=== PATIENT | male | born 1930 | race African-American/Black ===

== ENCOUNTER 2016-12-02 10:49 | Inpatient (IN) | payer OTHER, BC ==
[2016-12-02 11:42] LABS: BASOPHIL 0.9 % (0-2.0); EOSINOPHIL 1.2 % (0-4.5); MCH 26.6 pg (25.7-33.7); MCHC 31.8 g/dl (32.0-35.9); MEAN CELL VOLUME 83.5 fl (80-96); NEUTROPHILS 74.8 % (42.8-82.8); PLATELET COUNT 167 K/MM3 (134-434); RDW 15.8 % (11.9-15.9); WHITE BLOOD COUNT 8.7 K/mm3 (4.0-10.0)
[2016-12-02 11:59] LABS: INR 1.09 (0.82-1.09)
--- NOTE | 2016-12-02 12:04 | PDOC ---
History of Present Illness - General History Source: Patient, Family Exam Limitations: No Limitations <Mihai Esparza - Last Filed: 12/02/16 16:37> - General History Source: Patient, Care Provider Exam Limitations: No Limitations - History of Present Illness Initial Comments: 12/02/16 12:36 The patient is a 86 year old male BIBA with a significant past medical history of HTN, HLD, Hypothyroidism, BPH, Stomach ulcers who presents to the emergency department with rectal bleeding today morning. Patient is accompanied by daughter and grandson who reports the patient noted dark red blood after his bowel movement. As per family, patients bed was filled with dark red blood, with many clots. Patient has been noted to be increasingly weak in the past few weeks however denies any lightheadedness, dizziness or headache today. Patient is not on blood thinners. He denies fever, chills, abdominal pain, nausea, vomit , diarrhea or constipation. He denies chest pain, SOB, dysuria, frequency, urgency or hematuria. Allergies: NKA Past surgical history: Unspecified stomach ulcer surgery Social history: Former smoker 1984. Lives at home. PCP: Dr. Praveen Manzanares <Barbara Botello - Last Filed: 12/02/16 16:52> - General Chief Complaint: Rectal Bleed Stated Complaint: RECTAL BLEEDING Time Seen by Provider: 12/02/16 11:28 Past History - Past Medical History Anemia: No Asthma: No Cancer: No Cardiac Disorders: No CVA: No COPD: No CHF: No Dementia: No Diabetes: No GI Disorders: Yes (STOMACH ULCER) Disorders: Yes (BPH) HTN: Yes Hypercholesterolemia: Yes Liver Disease: No Seizures: No Thyroid Disease: Yes (HYPO.) - Surgical History Abdominal Surgery: Yes (SURGERY FOR STOMACH ULCER) Appendectomy: No Cardiac Surgery: No Cholecystectomy: No Lung Surgery: No Neurologic Surgery: No Orthopedic Surgery: Yes (RIGHT KNEE SURGERY) - Psycho/Social/Smoking Cessation Hx Anxiety: No Suicidal Ideation: No Smoking History: Former smoker Have you smoked in the past 12 months: Yes If you are a former smoker, when did you quit?: 1984 Information on smoking cessation initiated: No Hx Alcohol Use: No Drug/Substance Use Hx: No Substance Use Type: None Hx Substance Use Treatment: No <Mihai Esparza - Last Filed: 12/02/16 16:37> <Barbara Botello - Last Filed: 12/02/16 16:52> - Past Medical History Allergies/Adverse Reactions: Allergies Allergy/AdvReac Type Severity Reaction Status Date / Time No Known Drug Allergies Allergy Verified 12/02/16 11:03 Home Medications: Ambulatory Orders Levothyroxine [Synthroid -] 100 mcg PO DAILY 12/02/16 Tamsulosin HCl [Flomax] 0.4 mg PO DAILY 12/02/16 Valsartan/Hydrochlorothiazide [Valsartan-Hctz 80-12.5 mg Tab] 1 each PO DAILY Review of Systems - Review of Systems Able to Perform ROS?: Yes Comments:: 12/02/16 12:36 GENERAL/CONSTITUTIONAL: No fever or chills. No weakness. HEAD, EYES, EARS, NOSE AND THROAT: No change in vision. No ear pain or discharge. No sore throat. CARDIOVASCULAR: No chest pain or shortness of breath. RESPIRATORY: No cough, wheezing, or hemoptysis. GASTROINTESTINAL: No nausea, vomiting, diarrhea or constipation. +dark stool. GENITOURINARY: No dysuria, frequency, or change in urination. MUSCULOSKELETAL: No joint or muscle swelling or pain. No neck or back pain. SKIN: No rash NEUROLOGIC: No headache, vertigo, loss of consciousness, or change in strength/ sensation. ENDOCRINE: No increased thirst. No abnormal weight change. HEMATOLOGIC/LYMPHATIC: No anemia, easy bleeding, or history of blood clots. ALLERGIC/IMMUNOLOGIC: No hives or skin allergy. <Barbara Botello - Last Filed: 12/02/16 16:52> *Physical Exam - Vital Signs Last Vital Signs Temp Pulse Resp BP Pulse Ox 98.1 F 72 18 141/80 98 12/02/16 10:59 12/02/16 11:30 12/02/16 11:30 12/02/16 11:30 12/02/16 11:30 <Mihai Esparza - Last Filed: 12/02/16 16:37> - Vital Signs Last Vital Signs Temp Pulse Resp BP Pulse Ox 98.1 F 72 18 141/80 98 12/02/16 10:59 12/02/16 11:30 12/02/16 11:30 12/02/16 11:30 12/02/16 11:30 - Physical Exam Comments: 12/02/16 12:37 GENERAL: Awake, alert, and fully oriented, in no acute distress HEAD: No signs of trauma EYES: PERRLA, EOMI, sclera anicteric, conjunctiva clear ENT: Auricles normal inspection, hearing grossly normal, nares patent, oropharynx clear without exudates. Moist mucosa NECK: Normal ROM, supple, no lymphadenopathy, JVD, or masses LUNGS: Breath sounds equal, clear to auscultation bilaterally. No wheezes, and no crackles HEART: Regular rate and rhythm, normal S1 and S2, no murmurs, rubs or gallops ABDOMEN: Soft, nontender, normoactive bowel sounds. No guarding, no rebound. No masses EXTREMITIES: Normal range of motion, no edema. No clubbing or cyanosis. No cords, erythema, or tenderness NEUROLOGICAL: Cranial nerves II through XII grossly intact. Normal speech, gait deferred. SKIN: Warm, Dry, normal turgor, no rashes or lesions noted. RECTAL: +Blood on glove. No hemorrhoids. No anal tears. <Barbara Botello - Last Filed: 12/02/16 16:52> Heart Score/ECG Review #1 ECG reviewed & interpreted by me at: 11:20 12/02/16 13:54 NSR 76, no std/bakari, occasional PACs, QTC 357 msec <Mihai Esparza - Last Filed: 12/02/16 16:37> ED Treatment Course - LABORATORY CBC & Chemistry Diagram: 12/02/16 15:50 12/02/16 11:25 - ADDITIONAL ORDERS Additional order review: 12/02/16 11:25 RBC 4.56 MCV 83.5 MCHC 31.8 L RDW 15.8 MPV 9.0 Neutrophils % 74.8 Lymphocytes % 17.1 Monocytes % 6.0 Eosinophils % 1.2 Basophils % 0.9 - RADIOLOGY Radiology Studies Ordered: Category Date Time Status ABDOMEN & PELVIS CT WITH CONTR [CT] Stat CT Scan 12/02/16 11:54 Ordered <Mihai Esparza - Last Filed: 12/02/16 16:37> - LABORATORY CBC & Chemistry Diagram: 12/02/16 15:50 12/02/16 11:25 - ADDITIONAL ORDERS Additional order review: Laboratory Results 12/02/16 12/02/16 12/02/16 12:04 11:25 11:25 INR 1.09 PTT (Actin FS) 33.0 Sodium 141 Potassium 3.4 L D Chloride 105 Carbon Dioxide 27 Anion Gap 9 BUN 15 Creatinine 0.9 Creat Clearance w eGFR > 60 Random Glucose 106 Calcium 8.7 Total Bilirubin 0.5 D AST 22 D ALT 23 D Alkaline Phosphatase 42 L Total Protein 6.9 Albumin 3.9 Stool Occult Blood Positive 12/02/16 11:25 RBC 4.56 MCV 83.5 MCHC 31.8 L RDW 15.8 MPV 9.0 Neutrophils % 74.8 Lymphocytes % 17.1 Monocytes % 6.0 Eosinophils % 1.2 Basophils % 0.9 <Barbara Botello - Last Filed: 12/02/16 16:52> Medical Decision Making - Critical Care Time Total Critical Care Time (minutes): 45 Critical Care Statement: The care of this patient involved high complexity decision making to prevent further life threatening deterioration of the patient 's condition and/or to evaluate & treat vital organ system(s) failure or risk of failure. - Medical Decision Making 12/02/16 12:33 A portion of this note was documented by scribe services under my direction. I have reviewed the details of the note, within reason, and agree with the documentation with the following case summary and management plan written by me. Patient treated in the ED. Nursing notes are reviewed and incorporated into the medical decision-making. Vital signs reviewed. Peripheral IV access obtained by the nurse, laboratory studies are drawn and sent, reviewed and interpreted by myself. Vital Signs Temp Pulse Resp BP Pulse Ox 98.1 F 72 18 141/80 98 12/02/16 10:59 12/02/16 11:30 12/02/16 11:30 12/02/16 11:30 12/02/16 11:30 86-year-old male with past medical history of hypothyroidism, BPH, hypertension presents with rectal bleeding. The patient reported that he had an accidental bowel movement that produces significantly large amount of dark red blood per rectum with clots. Denies rectal pain or abdominal pain. First-time episode. Does not number last time colonoscopy. Patient denies lightheadedness. Initially , patient's vital signs noted a heart rate of 38 but upon repeat demonstrated normal heart rate. We'll observe at this time. Rectal exam demonstrated blood per rectum but not actively bleeding. Differential includes internal hemorrhoids, diverticulosis, colon cancer, AVM formation. Given the amount of bleeding, patient should be admitted at the very minimum for observation. We'll obtain labs, CAT scan abdomen pelvis and reassess. 12/02/16 16:00 CBC, BMP 12/02/16 11:25 CMP Sodium 141 mmol/L (136-145) 12/02/16 11:25 Potassium 3.4 mmol/L (3.5-5.1) L D 12/02/16 11:25 Chloride 105 mmol/L (98-107) 12/02/16 11:25 Carbon Dioxide 27 mmol/L (21-32) 12/02/16 11:25 Anion Gap 9 (8-16) 12/02/16 11:25 BUN 15 mg/dL (7-18) 12/02/16 11:25 Creatinine 0.9 mg/dL (0.7-1.3) 12/02/16 11:25 Creat Clearance w eGFR > 60 (>60) 12/02/16 11:25 Random Glucose 106 mg/dL (74-106) 12/02/16 11:25 Calcium 8.7 mg/dL (8.5-10.1) 12/02/16 11:25 Total Bilirubin 0.5 mg/dL (0.2-1.0) D 12/02/16 11:25 AST 22 U/L (15-37) D 12/02/16 11:25 ALT 23 U/L (12-78) D 12/02/16 11:25 Alkaline Phosphatase 42 U/L (45-117) L 12/02/16 11:25 Total Protein 6.9 g/dl (6.4-8.2) 12/02/16 11:25 Albumin 3.9 g/dl (3.4-5.0) 12/02/16 11:25 Lipase 88 U/L (73-393) 12/02/16 12:04 Guiac positive. While here in the ED, the patient has had 2 large bowel movements feeling commodes of dark red blood. CT angiogram demonstrates no flushed. I had spoken to the radiologist Dr. Howell who could not identify blush. Does show dilatation of the pancreatic duct. Concerning for mass in the head of the pancreas. I explained to the patient and family that this could potentially be cancer. The vitals remain stable but patient continues to have episodic episodes of bleeding. I had discussed the case emergently with Dr. Cheek who states given large acute blood loss is to give 1 unit of PRBCs. Also will be coming into the hospital. We'll admit the patient to the ICU. 12/02/16 16:[address] Daniel Dominguez. He accepts the patient to the ICU. 12/02/16 16:[address] Woodruff. He accepts the patient to the ER. <Mihai Esparza - Last Filed: 12/02/16 16:37> - Medical Decision Making 12/02/16 15:45 Dr. Cheek called via phone answering service. Awaiting call back. 12/02/16 16:00 Dr. Rico returned the page and the patients case was discussed. 12/02/16 16:05 Dr. Dominguez paged via phone answering service. Awaiting call back. 12/02/16 16:10 Dr. Dominguez responded to the page and the patients case was discussed. 12/02/16 16:25 Dr. Woodruff paged (physician environmental compliance inspector for Dr. Hernandez) via phone answering service. 12/02/16 16:37 Dr. Woodruff paged via phone answering service. 12/02/16 16:40 Dr. Woodruff returned the paged the and patient;s case was discussed. <Barbara Botello - Last Filed: 12/02/16 16:52> *DC/Admit/Observation/Transfer - Discharge Dispostion Admit: Yes <Mihai Esparza - Last Filed: 12/02/16 16:37> - Attestations Scribe Attestion: 12/02/16 12:37 Documentation prepared by Barbara Botello, acting as medical receptionist biller for Mihai Esparza MD <Barbara Botello - Last Filed: 12/02/16 16:52> Diagnosis at time of Disposition: Lower GI bleed - Referrals Referrals: Praveen Manzanares MD [Primary Care Provider] -
[2016-12-02 12:21] LABS: ALBUMIN 3.9 g/dl (3.4-5.0); ALK PHOS 42 U/L (45-117); ANION GAP 9 (8-16); BILIRUBIN,TOTAL 0.5 mg/dL (0.2-1.0); CALCIUM 8.7 mg/dL (8.5-10.1); CO2 27 mmol/L (21-32); CREATININE 0.9 mg/dL (0.7-1.3); GLUCOSE,RANDOM 106 mg/dL (74-106); SGOT/AST 22 U/L (15-37); SGPT/ALT 23 U/L (12-78); TOT PROT 6.9 g/dl (6.4-8.2)
--- NOTE | 2016-12-02 13:07 | EKG ---
Test Reason : Blood Pressure : / mmHG Vent. Rate : 076 BPM Atrial Rate : 076 BPM P-R Int : 182 ms QRS Dur : 102 ms QT Int : 318 ms P-R-T Axes : 016 -27 015 degrees QTc Int : 357 ms SINUS RHYTHM WITH PREMATURE ATRIAL COMPLEXES IN A PATTERN OF BIGEMINY POOR R WAVE PROGRESSION NONSPECIFIC T WAVE ABNORMALITY ABNORMAL ECG WHEN COMPARED WITH ECG OF 29-APR-2006 14:11, PREMATURE ATRIAL COMPLEXES ARE NOW PRESENT NONSPECIFIC T WAVE ABNORMALITY NOW EVIDENT IN INFERIOR LEADS NONSPECIFIC T WAVE ABNORMALITY, WORSE IN LATERAL LEADS QT HAS SHORTENED CLINICAL CORRELATION IS RECOMMENDED Confirmed by TIFFANIE RUBIO, SHERRIE ([id number]) on 12/02/2016 1:07:45 PM Referred By: Confirmed By:SHERRIE MORENO MD
[2016-12-02 15:58] LABS: BASOPHIL 0.6 % (0-2.0); EOSINOPHIL 1.1 % (0-4.5); MCH 27.3 pg (25.7-33.7); MCHC 32.5 g/dl (32.0-35.9); MEAN CELL VOLUME 84.1 fl (80-96); NEUTROPHILS 68.8 % (42.8-82.8); PLATELET COUNT 168 K/MM3 (134-434); RDW 15.9 % (11.9-15.9); WHITE BLOOD COUNT 10.8 K/mm3 (4.0-10.0)
[2016-12-02 17:56] VITALS: BMI 22.4
[2016-12-02] MEDS ORDERED: ONDANSETRON 4 MG/2 ML VIAL IVPB PRN (19:05)
[2016-12-02] MEDS ORDERED: SODIUM CHLORIDE 1,000 ML IV SCH (19:15)
--- NOTE | 2016-12-02 20:33 | CONSULT ---
Consult Consult Specialty:: PULMONARY/CRITICAL CARE Referred by:: Kacy Reason for Consultation:: GIB - History of Present Illness Chief Complaint: melena History of Present Illness: Briefly, 86 y/o male with HTN, HLD, Hypothyroid, BPH, gastric ulcers presents to the ED with melena. He is hemodynamically stable, Hgb is 12, Plts and Coags are normal. He is not on any anti-platelet therapy or NSAIDs. He was given 1PRBC and admitted to the ICU. - History Source History Provided By: Medical Record Limitations to Obtaining History: No Limitations - Past Medical History Cardio/Vascular: Yes: HTN, Hyperlipdemia Gastrointestinal: Yes: Peptic Ulcer Disease Renal/: Yes: BPH - Alcohol/Substance Use Hx Alcohol Use: No - Smoking History Smoking history: Former smoker Have you smoked in the past 12 months: Yes If you are a former smoker, when did you quit?: 1985 Home Medications - Allergies Allergies/Adverse Reactions: Allergies Allergy/AdvReac Type Severity Reaction Status Date / Time No Known Drug Allergies Allergy Verified 12/02/16 11:03 - Home Medications Home Medications: Ambulatory Orders Levothyroxine [Synthroid -] 100 mcg PO DAILY 12/02/16 Tamsulosin HCl [Flomax] 0.4 mg PO DAILY 12/02/16 Valsartan/Hydrochlorothiazide [Valsartan-Hctz 80-12.5 mg Tab] 1 each PO DAILY Family Disease History - Family Disease History Family History: Unremarkable Review of Systems - Review of Systems Constitutional: reports: No Symptoms Eyes: reports: No Symptoms HENT: reports: No Symptoms Neck: reports: No Symptoms Cardiovascular: reports: No Symptoms Respiratory: reports: No Symptoms Gastrointestinal: reports: Melena Genitourinary: reports: No Symptoms Breasts: reports: No Symptoms Reported Musculoskeletal: reports: No Symptoms Integumentary: reports: No Symptoms Neurological: reports: No Symptoms Endocrine: reports: No Symptoms Hematology/Lymphatic: reports: No Symptoms Psychiatric: reports: No Symptoms Physical Exam Vital Signs: Vital Signs Temperature 98.5 F 12/02/16 18:22 Pulse Rate 72 12/02/16 18:22 Respiratory Rate 16 12/02/16 18:22 Blood Pressure 143/85 12/02/16 18:22 O2 Sat by Pulse Oximetry (%) 100 12/02/16 18:11 Constitutional: Yes: Well Nourished Eyes: Yes: WNL HENT: Yes: WNL Neck: Yes: WNL Cardiovascular: Yes: WNL Respiratory: Yes: WNL Gastrointestinal: Yes: WNL ...Rectal Exam: Yes: WNL Renal/: Yes: WNL Breast(s): Yes: WNL Musculoskeletal: Yes: WNL Extremities: Yes: WNL Edema: No Peripheral Pulses WNL: Yes Integumentary: Yes: WNL Imaging - Results Chest X-ray: Image Reviewed Cat Scan: Image Reviewed Problem List - Problems (1) Lower GI bleed Code(s): K92.2 - GASTROINTESTINAL HEMORRHAGE, UNSPECIFIED (2) Hypertension Code(s): I10 - ESSENTIAL (PRIMARY) HYPERTENSION (3) Hypothyroid Code(s): E03.9 - HYPOTHYROIDISM, UNSPECIFIED (4) Hyperlipemia Code(s): E78.5 - HYPERLIPIDEMIA, UNSPECIFIED (5) BPH (benign prostatic hyperplasia) Code(s): N40.0 - BENIGN PROSTATIC HYPERPLASIA WITHOUT LOWER URINRY TRACT SYMP Assessment/Plan Lower GIB, known gastric ulcers HTN HLD Hypothyroid BPH -NPO -PPI -GI consult -Large bore access -Serial CBC -Restart home meds when able Transfer to the floor Thank you for this interesting consult Froylan Perez Pulm/Critical Care NUCLEAR MEDICINE MEDICAL DIRECTOR
[2016-12-02] MEDS ORDERED: PANTOPRAZOLE SODIUM 100 ML IVPB ONE (20:37)
[2016-12-02] MEDS ORDERED: SODIUM CHLORIDE 1,000 ML with POTASSIUM CHLORIDE 20 MEQ IVPB SCH (20:38)
[2016-12-02] MEDS: SODIUM CHLORIDE 0.9%/KCL 1,000 ML IV SCH (21:11)
[2016-12-02 21:41] LABS: MCH 27.9 pg (25.7-33.7); MCHC 32.9 g/dl (32.0-35.9); MEAN CELL VOLUME 84.9 fl (80-96); MEAN PLT VOLUME 9.2 fl (7.5-11.1); PLATELET COUNT 155 K/MM3 (134-434); RDW 16.1 % (11.9-15.9)
[2016-12-02] MEDS ORDERED: morphine CARPU-JECT 4 MG/1 ML DISP.SYRIN IVPUSH PRN ×2 (21:51→21:52)
[2016-12-02] MEDS: CHLORHEXIDINE GLUCONATE 4% CLEANSER FOR DECOLONIZATION TP SCH (22:00)
[2016-12-02] MEDS: MUPIROCIN 2% TOPICAL OINTMENT FOR DECOLONIZATION NS SCH (22:00)
[2016-12-02] MEDS ORDERED: RAPID SEQUENCE INTUBATION KIT NR ONE (23:00)
[2016-12-02] MEDS: PANTOPRAZOLE SODIUM 80 MG in SODIUM CHLORIDE 100 ML IVPB SCH (23:00)
[2016-12-02] MEDS: KCL 10 MEQ IVPB 100 ML IVPB SCH (23:00)
[2016-12-02] MEDS ORDERED: DOPAMINE 400 MG/D5W - 250 ML IVPB ONE (23:01)
[2016-12-02] MEDS ORDERED: MIDAZOLAM HCL 5 MG/1 ML Single Dose Vial ONE (23:10)
[2016-12-02] MEDS ORDERED: PROPOFOL 100 ML ONE (23:19)
[2016-12-02] MEDS ORDERED: PROPOFOL 100 ML IVPUSH SCH (23:45)
[2016-12-02] MEDS ORDERED: ROCURONIUM BROMIDE 50 MG/5 ML VIAL IV ONE (23:54)
[2016-12-02] MEDS ORDERED: ETOMIDATE 40 MG/20 ML VIAL IVPUSH ONE (23:55)
[2016-12-02] MEDS ORDERED: SUCCINYLCHOLINE CHLORIDE 200 MG/10 ML VIAL IVPUSH ONE (23:55)
[2016-12-02] MEDS ORDERED: MIDAZOLAM HCL 5 MG/1 ML Single Dose Vial IVPUSH ONE (23:56)
[2016-12-03 00:06] LABS: MCH 27.4 pg (25.7-33.7); MCHC 32.1 g/dl (32.0-35.9); MEAN CELL VOLUME 85.2 fl (80-96); MEAN PLT VOLUME 9.3 fl (7.5-11.1); PLATELET COUNT 122 K/MM3 (134-434); RDW 15.5 % (11.9-15.9); WHITE BLOOD COUNT 11.2 K/mm3 (4.0-10.0)
[2016-12-03] MEDS ORDERED: PROPOFOL 100 ML ONE (00:06)
[2016-12-03 00:23] LABS: INR 1.34 (0.82-1.09); PROTHROMBIN TIME (PATIENT) 14.8 SEC (9.98-11.88)
--- NOTE | 2016-12-03 00:23 | CON.GI ---
Consult Consult Specialty:: Gastroenterology Reason for Consultation:: lower gi bleeding - History of Present Illness History of Present Illness: 86y/o male PMH of HTN and gastric ulcers developed rectal bleeding. In the er he had developed 2 episodes of rectal bleeding. Vital signs were stable and Hgb was stable. This evening at 8 pm, he continued to be stable. At around 11pm he had a large bowel movement and became hypotensive. At that time he was receiving blood transfusion. He was electively intubated,received 1 liter of fluid and continued to receive PRBC. Oral gastrostomy tube was inserted , return is clear. - History Source History Provided By: Medical Record - Past Medical History Cardio/Vascular: Yes: HTN, Hyperlipdemia Gastrointestinal: Yes: Peptic Ulcer Disease Renal/: Yes: BPH - Alcohol/Substance Use Hx Alcohol Use: No - Smoking History Smoking history: Former smoker Have you smoked in the past 12 months: Yes If you are a former smoker, when did you quit?: 1984 Home Medications - Allergies Allergies/Adverse Reactions: Allergies Allergy/AdvReac Type Severity Reaction Status Date / Time No Known Drug Allergies Allergy Verified 12/02/16 11:03 - Home Medications Home Medications: Ambulatory Orders Levothyroxine [Synthroid -] 100 mcg PO DAILY 12/02/16 Tamsulosin HCl [Flomax] 0.4 mg PO DAILY 12/02/16 Valsartan/Hydrochlorothiazide [Valsartan-Hctz 80-12.5 mg Tab] 1 each PO DAILY Review of Systems Unable to obtain ROS, reason: patients clinical conditi Physical Exam-GI Vital Signs: Vital Signs Temperature 98.4 F 12/02/16 19:06 Pulse Rate 75 12/02/16 19:06 Respiratory Rate 18 12/02/16 23:15 Blood Pressure 132/73 12/02/16 19:06 O2 Sat by Pulse Oximetry (%) 100 12/02/16 18:11 Constitutional: Yes: Well Nourished Eyes: Yes: Conjunctiva Clear HENT: Yes: Atraumatic Neck: Yes: Trachea Midline Cardiovascular: Yes: Regular Rate and Rhythm Respiratory: Yes: CTA Bilaterally ...Palpate: Yes: Soft. No: Firm/Rigid, Guarding, Hepatomegaly, Mass, Pulsatile Mass, Splenomegaly, Tenderness Labs: CBC, BMP 12/02/16 23:55 INR, PTT INR 1.09 (0.82-1.09) 12/02/16 11:25 Problem List - Problems (1) Lower GI bleed Assessment/Plan: r/o diverticular bleeding, malignancy R> will need 2 units of PRBC spoke to interventional radiology and discussed the case,colonoscopy at this time will be suboptimal will need surgical consultation continue to observe NGT return Code(s): K92.2 - GASTROINTESTINAL HEMORRHAGE, UNSPECIFIED (2) Pancreatic mass Assessment/Plan: will evaluate once acute event is controled Code(s): K86.9 - DISEASE OF PANCREAS, UNSPECIFIED
--- NOTE | 2016-12-03 00:43 | PROC ---
Intubation - Intubation Reason for Intubation: Respiratory Insufficiency, Respiratory Failure, Airway Protection Time of Intubation: 23:00 Intubation Method: orotracheal Blade used: Mac Tube Size (cm): 7.5 Tube position @ lip (cm): 24 Tube position confirmed by: Direct visualization, CO2 detector, Chest x-ray, Breath sounds Breath Sounds after Intubation: equal Post Intubation Xray: Yes Remarks: RSI: pre-ox, Etomidate 10mg, Succinylcholine 80mg, cric pressure, DLx1, MAC 3, G1v, 7.5 ETT to 24cm at lips, +EtCO2, = breath sounds, tube secured and connected to the ventilator.
--- NOTE | 2016-12-03 00:45 | PROC ---
Central Line Insertion Indication: Poor Venous Access, Vasopressor Risks and Benefits Explained: No (emergent) Consent on Chart: No (emergent) Central Line: Other (8fr 10cm introducer) Sterile Technique: Yes Ultrasound Guided Assistance: No Position: Right Internal Jugular Post Insertion: Yes: Bilateral Breath Sounds, Bilateral Chest Expansion, Chest X-Ray Ordered Sterile Dressing Applied: Yes Remarks: Emergent procedure in a nicole-arrest sc[place]io. Consent unable to be obtained. Family notified after.
[2016-12-03] MEDS ORDERED: DOPAMINE 400 MG/D5W - 250 ML IVPB SCH (01:00)
[2016-12-03] MEDS ORDERED: FENTANYL INJECTION 500 MCG in DEXTROSE 5%-WATER - 90 ML IJ SCH (01:00)
[2016-12-03 01:02] LABS: ARTERIAL BLOOD GAS BASE EXCESS -3.2 meq/l (-2-2); ARTERIAL BLOOD GAS HCO3 19.5 meq/L (22-26); ARTERIAL BLOOD GAS pH 7.44 (7.35-7.45)
[2016-12-03 01:09] LABS: ART PUNCT SITE ARTERIAL LINE
[2016-12-03 01:10] LABS: LPM/O2% 100%; MECH. VENT. ESPRIT; PT. ON O2? YES; TYPE OF O2 MECH.VENT; VENT RATE 18; VT/PRESS 450
[2016-12-03] MEDS ORDERED: NOREPINEPHRINE BITARTRATE 4 MG/4 ML ML IV ONE (01:12)
[2016-12-03] MEDS ORDERED: CALCIUM CHLORIDE 1 GM/10 ML *DISP.SYRIN ONE (01:16)
--- NOTE | 2016-12-03 01:20 | CONSULT ---
Consult - text type - Consultation Consultation Note: PULMONARY/CRITICAL CARE MEDICINE: Called urgently to the bedside around 23:00 on 12/02 for loss of mental status and hypotension (50s/30s) accompanied by large quantity, bright red melena. I urgently intubated him, gave 1L NS, 1PRBC and started pressors, I placed central venous and arterial lines urgently. We placed an OGT and did a gastric levage which was completely negative for blood, the source seems to be lower. I contacted GI (Dr Cheek) and IR (Dr Lazaro) for a possible attempt at embolization. I also spoke extensively with his daughter Narcisa. Assessment: brisk lower GIB Plan: -mechanical ventilation -keep sedated and paralyzed for IR -continue to transfuse PRBCs, FFP, platelets (1:1:1 ratio) -maintain MAP >70 -give calcium chloride and check iCa -check Troponin Patient is critically ill. Critical Care time 90min not including procedures Froylan Perez Pulm/Critical Care GREASE MACHINE WORKER
[2016-12-03] MEDS ORDERED: ROCURONIUM BROMIDE 50 MG/5 ML VIAL IV ONE (01:22)
[2016-12-03] MEDS ORDERED: CALCIUM CHLORIDE 1 GM/10 ML *DISP.SYRIN IVPUSH ONE (01:23)
[2016-12-03] MEDS ORDERED: NOREPINEPHRINE BITARTRATE 8,000 MCG in DEXTROSE 5%-WATER - 492 ML IV SCH (01:30)
[2016-12-03] MEDS ORDERED: METOPROLOL TARTRATE 5 MG/5 ML VIAL ONE (02:03)
[2016-12-03] MEDS ORDERED: hydrALAZINE HCL 20 MG/ML VIAL ONE (02:04)
[2016-12-03] MEDS ORDERED: NITROGLYCERIN 25MG/D5W 250ML 250 ML IVPB SCH (02:15)
[2016-12-03] MEDS: NITROGLYCERIN 25MG/D5W 250ML 250 ML IVPB SCH ×2 (03:00→14:22)
[2016-12-03] MEDS: KCL 10 MEQ IVPB 100 ML IVPB SCH ×2 (03:00→04:17)
[2016-12-03 04:48] LABS: BASOPHIL 0.3 % (0-2.0); EOSINOPHIL 0.4 % (0-4.5); MCH 27.5 pg (25.7-33.7); MCHC 33.1 g/dl (32.0-35.9); MEAN CELL VOLUME 83.1 fl (80-96); NEUTROPHILS 80.2 % (42.8-82.8); PLATELET COUNT 106 K/MM3 (134-434); RDW 15.7 % (11.9-15.9)
[2016-12-03 06:24] LABS: BASOPHIL 0.2 % (0-2.0); EOSINOPHIL 0.4 % (0-4.5); MCH 27.7 pg (25.7-33.7); MCHC 33.3 g/dl (32.0-35.9); MEAN CELL VOLUME 83.1 fl (80-96); MEAN PLT VOLUME 9.3 fl (7.5-11.1); NEUTROPHILS 78.3 % (42.8-82.8); PLATELET COUNT 110 K/MM3 (134-434); RDW 15.7 % (11.9-15.9); WHITE BLOOD COUNT 12.2 K/mm3 (4.0-10.0)
[2016-12-03 06:47] LABS: INR 1.22 (0.82-1.09); PROTHROMBIN TIME (PATIENT) 13.5 SEC (9.98-11.88)
[2016-12-03 07:02] LABS: ALBUMIN 3.1 g/dl (3.4-5.0); ANION GAP 12 (8-16); BILIRUBIN,TOTAL 1.7 mg/dL (0.2-1.0); CALCIUM 8.6 mg/dL (8.5-10.1); CO2 23 mmol/L (21-32); CREATININE 0.6 mg/dL (0.7-1.3); GLUCOSE,RANDOM 126 mg/dL (74-106); SGOT/AST 15 U/L (15-37); SGPT/ALT 17 U/L (12-78); TOT PROT 5.4 g/dl (6.4-8.2)
[2016-12-03 07:04] LABS: ALK PHOS 36 U/L (45-117)
--- NOTE | 2016-12-03 08:23 | PN ---
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 After embolization no significant rectal bleeding was noted. - Objective Vital Signs: Vital Signs Temperature 97.8 F 12/03/16 05:00 Pulse Rate 92 H 12/03/16 07:00 Respiratory Rate 14 12/03/16 08:00 Blood Pressure 146/87 12/03/16 07:00 O2 Sat by Pulse Oximetry (%) 100 12/03/16 08:00 Constitutional: Well Nourished, Other (--intubated on a vent) Eyes: Yes: Conjunctiva Clear HENT: Yes: Atraumatic Neck: Yes: Supple Cardiovascular: Yes: Regular Rate and Rhythm Respiratory: Yes: CTA Bilaterally ...Palpate: Yes: Soft. No: Firm/Rigid, Guarding, Hepatomegaly, Mass, Pulsatile Mass, Splenomegaly, Tenderness Labs: CBC, BMP 12/03/16 05:35 12/03/16 05:35 INR, PTT INR 1.22 (0.82-1.09) H 12/03/16 05:35 Fibrinogen 211.0 mg/dL (238-498) L 12/02/16 23:55 Problem List - Problems (1) Lower GI bleed Assessment/Plan: stable, most likely diverticular bleeding R> continue to trend CBC , transfuse 1 unit of PRBC for Hgb below 10 Code(s): K92.2 - GASTROINTESTINAL HEMORRHAGE, UNSPECIFIED (2) Pancreatic mass Code(s): K86.9 - DISEASE OF PANCREAS, UNSPECIFIED
[2016-12-03 08:29] LABS: MAGNESIUM 1.7 mg/dL (1.8-2.4); PHOSPHOROUS 2.7 mg/dL (2.5-4.9)
--- NOTE | 2016-12-03 09:32 | PN ---
Progress Note (short form) - Note Progress Note: Patient seen and examined in the ICU. Events noted. Required emergency embolization of the ilial branch of the superior mesenteric artery. Now intubated and sedated. IV NTG for HTN. Intake & Output 11/30/16 12/01/16 12/02/16 12/03/16 23:59 23:59 23:59 23:59 Intake Total 1100 1805 Output Total 750 Balance 1100 1055 Weight 160 lb 8 oz 163 lb 5.8 oz Last Vital Signs Temp Pulse Resp BP Pulse Ox 98.5 F 94 H 16 128/99 100 12/03/16 09:00 12/03/16 09:00 12/03/16 09:00 12/03/16 09:00 12/03/16 08:00 Active Medications Chlorhexidine Gluconate (Hibiclens For Decolonization -) 1 applic TP HS STEFANI Last Admin: 12/02/16 22:00 Dose: 1 applic Potassium Chloride/Sodium Chloride (Ns+20 Meq Kcl -) 1,000 mls @ 75 mls/hr IV ASDIR STEFANI Last Admin: 12/02/16 21:11 Dose: 75 mls/hr Pantoprazole Sodium 80 mg/ (Sodium Chloride) 100 mls @ 10 mls/hr IVPB Q10H STEFANI PRN Reason: 8 MG/HR Last Admin: 12/02/16 23:00 Dose: 10 mls/hr Propofol (Diprivan -) 100 mls @ 2.184 mls/hr IVPUSH TITR STEFANI; 5 MCG/KG/MIN PRN Reason: Protocol Last Titration: 12/03/16 08:35 Dose: 0 mcg/kg/min Fentanyl 500 mcg/ Dextrose 100 mls @ 10 mls/hr IJ TITR STEFANI PRN Reason: 50 MCG/HR Last Titration: 12/03/16 08:35 Dose: 0 mcg/hr Nitroglycerin/Dextrose (Nitroglycerin 25mg/D5w 250ml) 250 mls @ 6 mls/hr IVPB TITR STEFANI PRN Reason: 10 MCG/MIN Last Titration: 12/03/16 07:00 Dose: 50 mcg/min Mupirocin (Bactroban Ointment (For Decolonization) -) 1 applic NS BID STEFANI Stop: 12/07/16 21:59 Last Admin: 12/02/16 22:00 Dose: 1 applic Constitutional: Yes: Intubated and sedated Eyes: Yes: WNL HENT: Yes: WNL Neck: Yes: WNL Cardiovascular: Yes: WNL Respiratory: Yes: Intubated, clear Gastrointestinal: Yes: WNL ...Rectal Exam: Yes: WNL Renal/: Yes: WNL Breast(s): Yes: WNL Musculoskeletal: Yes: WNL Extremities: Yes: WNL Edema: No Peripheral Pulses WNL: Yes Integumentary: Yes: WNL Laboratory Results - last 24 hr 12/02/16 12/02/16 12/02/16 11:20 11:25 11:25 WBC 8.7 RBC 4.56 Hgb 12.1 Hct 38.1 MCV 83.5 MCH 26.6 MCHC 31.8 L RDW 15.8 Plt Count 167 MPV 9.0 Neutrophils % 74.8 Lymphocytes % 17.1 Monocytes % 6.0 Eosinophils % 1.2 Basophils % 0.9 INR 1.09 PTT (Actin FS) 33.0 Fibrinogen Puncture Site ABG pH ABG pCO2 at Pt Temp ABG pO2 at Pt Temp ABG HCO3 ABG O2 Sat (Measured) ABG O2 Content ABG Base Excess Mike Test O2 Delivery Device Oxygen Flow Rate Vent Mode Vent Rate Mechanical Rate PEEP Pressure Support Vent Sodium Potassium Chloride Carbon Dioxide Anion Gap BUN Creatinine Creat Clearance w eGFR Random Glucose Lactic Acid Calcium Phosphorus Magnesium Total Bilirubin AST ALT Alkaline Phosphatase Troponin I B-Natriuretic Peptide Total Protein Albumin Lipase Stool Occult Blood Blood Type O POSITIVE Antibody Screen Negative Crossmatch 12/02/16 12/02/16 12/02/16 11:25 11:25 12:04 WBC RBC Hgb Hct MCV MCH MCHC RDW Plt Count MPV Neutrophils % Lymphocytes % Monocytes % Eosinophils % Basophils % INR PTT (Actin FS) Fibrinogen Puncture Site ABG pH ABG pCO2 at Pt Temp ABG pO2 at Pt Temp ABG HCO3 ABG O2 Sat (Measured) ABG O2 Content ABG Base Excess Mike Test O2 Delivery Device Oxygen Flow Rate Vent Mode Vent Rate Mechanical Rate PEEP Pressure Support Vent Sodium 141 Potassium 3.4 L D Chloride 105 Carbon Dioxide 27 Anion Gap 9 BUN 15 Creatinine 0.9 Creat Clearance w eGFR > 60 Random Glucose 106 Lactic Acid Calcium 8.7 Phosphorus Magnesium Total Bilirubin 0.5 D AST 22 D ALT 23 D Alkaline Phosphatase 42 L Troponin I B-Natriuretic Peptide Total Protein 6.9 Albumin 3.9 Lipase Stool Occult Blood Positive Blood Type O POSITIVE Antibody Screen Crossmatch See Detail 12/02/16 12/02/16 12/02/16 12:04 15:50 21:30 WBC 10.8 H 10.0 RBC 4.27 4.04 Hgb 11.7 11.3 L Hct 36.0 34.3 L MCV 84.1 84.9 MCH 27.3 27.9 MCHC 32.5 32.9 RDW 15.9 16.1 H Plt Count 168 155 MPV 9.0 9.2 Neutrophils % 68.8 Lymphocytes % 22.9 D Monocytes % 6.6 Eosinophils % 1.1 Basophils % 0.6 INR PTT (Actin FS) Fibrinogen Puncture Site ABG pH ABG pCO2 at Pt Temp ABG pO2 at Pt Temp ABG HCO3 ABG O2 Sat (Measured) ABG O2 Content ABG Base Excess Mike Test O2 Delivery Device Oxygen Flow Rate Vent Mode Vent Rate Mechanical Rate PEEP Pressure Support Vent Sodium Potassium Chloride Carbon Dioxide Anion Gap BUN Creatinine Creat Clearance w eGFR Random Glucose Lactic Acid Calcium Phosphorus Magnesium Total Bilirubin AST ALT Alkaline Phosphatase Troponin I B-Natriuretic Peptide Total Protein Albumin Lipase 88 Stool Occult Blood Blood Type Antibody Screen Crossmatch 12/02/16 12/02/16 12/03/16 23:55 23:55 00:03 WBC 11.2 H RBC 3.63 L Hgb 9.9 L D Hct 30.9 L MCV 85.2 MCH 27.4 MCHC 32.1 RDW 15.5 Plt Count 122 L D MPV 9.3 Neutrophils % Lymphocytes % Monocytes % Eosinophils % Basophils % INR 1.34 H PTT (Actin FS) Fibrinogen 211.0 L Puncture Site ABG pH ABG pCO2 at Pt Temp ABG pO2 at Pt Temp ABG HCO3 ABG O2 Sat (Measured) ABG O2 Content ABG Base Excess Mike Test O2 Delivery Device Oxygen Flow Rate Vent Mode Vent Rate Mechanical Rate PEEP Pressure Support Vent Sodium Potassium Chloride Carbon Dioxide Anion Gap BUN Creatinine Creat Clearance w eGFR Random Glucose Lactic Acid Calcium Phosphorus Magnesium Total Bilirubin AST ALT Alkaline Phosphatase Troponin I 0.02 B-Natriuretic Peptide Total Protein Albumin Lipase Stool Occult Blood Blood Type Antibody Screen Crossmatch 12/03/16 12/03/16 12/03/16 00:03 00:55 04:30 WBC 12.0 H RBC 3.64 L Hgb 10.0 L Hct 30.2 L MCV 83.1 MCH 27.5 MCHC 33.1 RDW 15.7 Plt Count 106 L MPV 9.0 Neutrophils % 80.2 Lymphocytes % 12.4 D Monocytes % 6.7 Eosinophils % 0.4 Basophils % 0.3 INR PTT (Actin FS) Fibrinogen Puncture Site Arterial line ABG pH 7.44 ABG pCO2 at Pt Temp 29.1 L ABG pO2 at Pt Temp 488.0 H* ABG HCO3 19.5 L ABG O2 Sat (Measured) 100.0 H* ABG O2 Content 16.5 ABG Base Excess -3.2 L Imke Test Not applicable O2 Delivery Device Mech.vent Oxygen Flow Rate 100% Vent Mode A/c Vent Rate 18 Mechanical Rate Esprit PEEP 5.0 Pressure Support Vent 450 Sodium Potassium Chloride Carbon Dioxide Anion Gap BUN Creatinine Creat Clearance w eGFR Random Glucose Lactic Acid 2.5 H* Calcium Phosphorus Magnesium Total Bilirubin AST ALT Alkaline Phosphatase Troponin I B-Natriuretic Peptide Total Protein Albumin Lipase Stool Occult Blood Blood Type Antibody Screen Crossmatch 12/03/16 12/03/16 12/03/16 05:35 05:35 05:35 WBC 12.2 H RBC 3.60 L Hgb 10.0 L Hct 30.0 L MCV 83.1 MCH 27.7 MCHC 33.3 RDW 15.7 Plt Count 110 L MPV 9.3 Neutrophils % 78.3 Lymphocytes % 14.3 Monocytes % 6.8 Eosinophils % 0.4 Basophils % 0.2 INR PTT (Actin FS) Fibrinogen Puncture Site ABG pH ABG pCO2 at Pt Temp ABG pO2 at Pt Temp ABG HCO3 ABG O2 Sat (Measured) ABG O2 Content ABG Base Excess Mike Test O2 Delivery Device Oxygen Flow Rate Vent Mode Vent Rate Mechanical Rate PEEP Pressure Support Vent Sodium 143 Potassium 3.8 Chloride 108 H Carbon Dioxide 23 Anion Gap 12 BUN 14 Creatinine 0.6 L D Creat Clearance w eGFR > 60 Random Glucose 126 H Lactic Acid 1.6 Calcium 8.6 Phosphorus 2.7 Magnesium 1.7 L Total Bilirubin 1.7 H D AST 15 D ALT 17 D Alkaline Phosphatase 36 L Troponin I B-Natriuretic Peptide 86.34 Total Protein 5.4 L D Albumin 3.1 L D Lipase Stool Occult Blood Blood Type Antibody Screen Crossmatch 12/03/16 12/03/16 05:35 07:00 WBC RBC Hgb Hct MCV MCH MCHC RDW Plt Count MPV Neutrophils % Lymphocytes % Monocytes % Eosinophils % Basophils % INR 1.22 H PTT (Actin FS) Fibrinogen Puncture Site ABG pH ABG pCO2 at Pt Temp ABG pO2 at Pt Temp ABG HCO3 ABG O2 Sat (Measured) ABG O2 Content ABG Base Excess Mike Test O2 Delivery Device Oxygen Flow Rate Vent Mode Vent Rate Mechanical Rate PEEP Pressure Support Vent Sodium Potassium Chloride Carbon Dioxide Anion Gap BUN Creatinine Creat Clearance w eGFR Random Glucose Lactic Acid Calcium Phosphorus Cancelled Magnesium Cancelled Total Bilirubin AST ALT Alkaline Phosphatase Troponin I B-Natriuretic Peptide Total Protein Albumin Lipase Stool Occult Blood Blood Type Antibody Screen Crossmatch Problem List - Problems (1) Lower GI bleed Code(s): K92.2 - GASTROINTESTINAL HEMORRHAGE, UNSPECIFIED (2) Hypertension Code(s): I10 - ESSENTIAL (PRIMARY) HYPERTENSION (3) Hypothyroid Code(s): E03.9 - HYPOTHYROIDISM, UNSPECIFIED (4) Hyperlipemia Code(s): E78.5 - HYPERLIPIDEMIA, UNSPECIFIED (5) BPH (benign prostatic hyperplasia) Code(s): N40.0 - BENIGN PROSTATIC HYPERPLASIA WITHOUT LOWER URINRY TRACT SYMP Assessment/Plan GI bleed S/P emergency embolization of the ilial branch of the superior mesenteric artery HTN HLD Hypothyroid BPH -NPO -PPI -Wean to extubate -Normal transfusion thresholds -BP support Dr Dominguez Critical care time spent in reviewing chart, evaluating patient and formulating plan - 40 minutes.
[2016-12-03] MEDS ORDERED: morphine CARPU-JECT 4 MG/1 ML DISP.SYRIN IVPUSH PRN (09:38)
[2016-12-03] MEDS ORDERED: PANTOPRAZOLE SODIUM 100 ML IVPB SCH (10:00)
[2016-12-03] MEDS ORDERED: MAGNESIUM SULF 50% (8.12 MEQ/2 ML-1 GM VIAL) IVPB ONE (10:15)
[2016-12-03] MEDS: PANTOPRAZOLE SODIUM 80 MG in SODIUM CHLORIDE 100 ML IVPB SCH ×2 (10:56→22:34)
--- NOTE | 2016-12-03 13:25 | EKG ---
Test Reason : Blood Pressure : / mmHG Vent. Rate : 069 BPM Atrial Rate : 037 BPM P-R Int : 000 ms QRS Dur : 100 ms QT Int : 418 ms P-R-T Axes : 000 031 059 degrees QTc Int : 447 ms SINUS RHYTHM WITH ATRIAL PREMATURES CONTRACTIONS AND VENTRICULAR PREMATURE CONTRACTIONS ABNORMAL ECG WHEN COMPARED WITH ECG OF 02-DEC-2016 11:16, NONSPECIFIC T WAVE ABNORMALITY NO LONGER EVIDENT IN INFERIOR LEADS NONSPECIFIC T WAVE ABNORMALITY NO LONGER EVIDENT IN ANTEROLATERAL LEADS QT HAS LENGTHENED CLINICAL CORRELATION IS RECOMMENDED Confirmed by TIFFANIE RUBIO, SHERRIE ([id number]) on 12/03/2016 1:25:34 PM Referred By: Confirmed By:SHERRIE MORENO MD
--- NOTE | 2016-12-03 14:38 | CON.CARD ---
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 He was electively intubated and now extubated this morning. No further bleeding since emolization Was noted to be hypertensive and is currently on NTG drip. Remains NPO. No orthopnea, pnd, le edema, cp, sob, palps. No f/c/s, h/a, cough, congestion, rashes, visual disturbances, abdominal pain pmhx/pshx: per hpi fam hx: no premature cad social hx: Former smoker ros: per hpi Ambulatory Orders Levothyroxine [Synthroid -] 100 mcg PO DAILY 12/02/16 Tamsulosin HCl [Flomax] 0.4 mg PO DAILY 12/02/16 Valsartan/Hydrochlorothiazide [Valsartan-Hctz 80-12.5 mg Tab] 1 each PO DAILY Current Medications Chlorhexidine Gluconate (Hibiclens For Decolonization -) 1 applic TP HS STEFANI Last Admin: 12/02/16 22:00 Dose: 1 applic Potassium Chloride/Sodium Chloride (Ns+20 Meq Kcl -) 1,000 mls @ 75 mls/hr IV ASDIR STEFANI Last Admin: 12/02/16 21:11 Dose: 75 mls/hr Pantoprazole Sodium 80 mg/ (Sodium Chloride) 100 mls @ 10 mls/hr IVPB Q10H STEFANI PRN Reason: 8 MG/HR Last Admin: 12/03/16 10:56 Dose: 10 mls/hr Propofol (Diprivan -) 100 mls @ 2.184 mls/hr IVPUSH TITR STEFANI; 5 MCG/KG/MIN PRN Reason: Protocol Last Titration: 12/03/16 08:35 Dose: 0 mcg/kg/min Fentanyl 500 mcg/ Dextrose 100 mls @ 10 mls/hr IJ TITR STEFANI PRN Reason: 50 MCG/HR Last Titration: 12/03/16 08:35 Dose: 0 mcg/hr Nitroglycerin/Dextrose (Nitroglycerin 25mg/D5w 250ml) 250 mls @ 6 mls/hr IVPB TITR TSEFANI PRN Reason: 10 MCG/MIN Last Admin: 12/03/16 14:22 Dose: 18 mls/hr Morphine Sulfate (Morphine Injection -) 2 mg IVPUSH Q3H PRN PRN Reason: PAIN Mupirocin (Bactroban Ointment (For Decolonization) -) 1 applic NS BID STEFANI Stop: 12/07/16 21:59 Last Admin: 12/02/16 22:00 Dose: 1 applic Vital Signs - 24 hr 12/02/16 12/02/16 12/02/16 15:45 17:00 17:15 Temperature 97.6 F Pulse Rate 76 Pulse Rate [ 71 73 Apical] Respiratory 16 20 16 Rate Blood Pressure 131/67 Blood Pressure 133/84 129/68 [Left Arm] O2 Sat by Pulse 98 98 Oximetry (%) 12/02/16 12/02/16 12/02/16 18:11 18:22 19:06 Temperature 98.5 F 98.4 F Pulse Rate 72 75 Pulse Rate [ Apical] Respiratory 16 16 Rate Blood Pressure 143/85 132/73 Blood Pressure [Left Arm] O2 Sat by Pulse 100 Oximetry (%) 12/02/16 12/02/16 12/02/16 21:00 21:06 23:06 Temperature 98.2 F Pulse Rate 89 70 Pulse Rate [ Apical] Respiratory 14 18 14 Rate Blood Pressure 132/73 56/46 Blood Pressure [Left Arm] O2 Sat by Pulse Oximetry (%) 12/02/16 12/03/16 12/03/16 23:15 00:51 01:06 Temperature Pulse Rate 91 H Pulse Rate [ Apical] Respiratory 18 18 14 Rate Blood Pressure 183/92 Blood Pressure [Left Arm] O2 Sat by Pulse Oximetry (%) 12/03/16 12/03/16 12/03/16 01:12 02:00 03:06 Temperature Pulse Rate 89 85 Pulse Rate [ Apical] Respiratory 14 14 14 Rate Blood Pressure 177/85 156/75 Blood Pressure [Left Arm] O2 Sat by Pulse Oximetry (%) 12/03/16 12/03/16 12/03/16 03:43 05:00 05:50 Temperature 97.8 F Pulse Rate 85 72 Pulse Rate [ Apical] Respiratory 14 14 14 Rate Blood Pressure 167/87 112/68 Blood Pressure [Left Arm] O2 Sat by Pulse Oximetry (%) 12/03/16 12/03/16 12/03/16 06:35 07:00 08:00 Temperature Pulse Rate 92 H 92 H Pulse Rate [ Apical] Respiratory 14 14 14 Rate Blood Pressure 146/87 138/81 Blood Pressure [Left Arm] O2 Sat by Pulse 100 Oximetry (%) 12/03/16 12/03/16 12/03/16 09:00 10:00 10:46 Temperature 98.5 F Pulse Rate 94 H 90 Pulse Rate [ Apical] Respiratory 16 12 Rate Blood Pressure 128/99 163/83 Blood Pressure [Left Arm] O2 Sat by Pulse 100 100 98 Oximetry (%) 12/03/16 12/03/16 12/03/16 10:53 11:59 12:57 Temperature 98.4 F Pulse Rate 87 97 H 98 H Pulse Rate [ Apical] Respiratory 19 14 14 Rate Blood Pressure 139/77 150/75 140/84 Blood Pressure [Left Arm] O2 Sat by Pulse Oximetry (%) 12/03/16 14:00 Temperature Pulse Rate 92 H Pulse Rate [ Apical] Respiratory 12 Rate Blood Pressure 157/83 Blood Pressure [Left Arm] O2 Sat by Pulse Oximetry (%) Intake & Output 12/01/16 12/02/16 12/03/16 12/04/16 07:59 07:59 07:59 07:59 Intake Total 2905 56.5 Output Total 750 Balance 2155 56.5 Weight 163 lb 5.8 oz nad, calm jvd flat, neck supple ctab, nl effort rrr with occasional ectopy, nl s1, s2 no mrg + bs soft nt nd ext without e/c/c + dp/pt alert and oriented no jaundice, diaphoresis or pallor no carotid bruit CBC, BMP 12/03/16 05:35 12/03/16 05:35 Laboratory Tests 12/03/16 12/03/16 12/03/16 00:03 05:35 05:35 INR Lactic Acid 2.5 H* 1.6 Magnesium 1.7 L Total Bilirubin 1.7 H D AST 15 D ALT 17 D Alkaline Phosphatase 36 L B-Natriuretic Peptide 86.34 Albumin 3.1 L D 12/03/16 05:35 INR 1.22 H Lactic Acid Magnesium Total Bilirubin AST ALT Alkaline Phosphatase B-Natriuretic Peptide Albumin EKG 12/02: 11 am: SR with pac's (atrial bigeminy). leftward axis, non-specific t wave flattening. EKG 12/02 22:56: sr with pac's, pvc's and subsequent ventricular escape. ? lead reversal. t waves no longer flattened in lateral leads. tele: sr with frequent pacs, pvcs. initially with occ nsvt. CXR: no acute pulmonary pathology. 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 HTN - Con't NTG drip for blood pressure control while NPO. Monitor for hypotension/ rebleed. atrial/ventricular ectopy -monitor for improvement with lyte repletion. HL - not on statin as outpatient ? h/o myositis. will defer to pmd. GIB: - currently stable s/p embolization. ongoing mgm't per pmd/GI cct 35 min.
--- NOTE | 2016-12-03 15:17 | HP ---
Admitting History and Physical - Primary Care Physician PCP: Eddie Woodruff - Admission Chief Complaint: Bleeding per rectum History of Present Illness: 86 y/o with past medical history significant for HTN, HLD, Hypothyroid, BPH, gastric ulcers presented to the ED with melena/BRBPR. In the ER, he had 2 more episodes of rectal bleeding. Vital signs were stable and Hgb was stable. At around 11pm he had a large bowel movement and became hypotensive. At that time he was receiving blood transfusion. He was electively intubated,received 1 liter of fluid and continued to receive PRBC. Oral gastrostomy tube was inserted , return is clear. Interventional radiology was consulted and he underwent embolization of the ileal branch of superior mesenteric artery supplying the right colon. After embolization no significant rectal bleeding was noted. This morning he was successfully extubated and he is doing fine since then. He is on IV NTG for HTN. Discussed in detail with the family present by the bedside. 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: Yes: Dementia Cardiovascular: Yes: HTN, Hyperlipdemia Gastrointestinal: Yes: Peptic Ulcer Disease Renal/: Yes: BPH - Smoking History Smoking history: Former smoker Have you smoked in the past 12 months: Yes If you are a former smoker, when did you quit?: 1984 - Alcohol/Substance Use Hx Alcohol Use: No Home Medications - Allergies Allergies/Adverse Reactions: Allergies Allergy/AdvReac Type Severity Reaction Status Date / Time No Known Drug Allergies Allergy Verified 12/02/16 11:03 - Home Medications Home Medications: Ambulatory Orders Levothyroxine [Synthroid -] 100 mcg PO DAILY 12/02/16 Tamsulosin HCl [Flomax] 0.4 mg PO DAILY 12/02/16 Valsartan/Hydrochlorothiazide [Valsartan-Hctz 80-12.5 mg Tab] 1 each PO DAILY Review of Systems Unable to obtain ROS, reason: Confused. Physical Examination Vital Signs: Vital Signs Temperature 98.4 F 12/03/16 11:59 Pulse Rate 94 H 12/03/16 15:00 Respiratory Rate 15 12/03/16 15:00 Blood Pressure 148/70 12/03/16 15:00 O2 Sat by Pulse Oximetry (%) 98 12/03/16 15:13 Constitutional: Yes: No Distress, Calm Eyes: Yes: Conjunctiva Clear, EOM Intact, PERRL HENT: Yes: Atraumatic, Normocephalic Neck: Yes: Supple, Trachea Midline Cardiovascular: Yes: Regular Rate and Rhythm, S1, S2 Respiratory: Yes: Regular, Diminished (b/l lung base) Gastrointestinal: Yes: Normal Bowel Sounds, Soft, Melena, Rectal Bleeding Extremities: Yes: WNL Edema: No Peripheral Pulses WNL: Yes Neurological: Yes: Confusion ...Motor Strength: WNL Labs: CBC, BMP 12/03/16 05:35 12/03/16 05:35 Imaging - Results Chest X-ray: Report Reviewed Cat Scan: Report Reviewed Problem List - Problems (1) Lower GI bleed Assessment/Plan: S/P Prbc transfusion x 3 and FFP x 2 S/p embolization of the ileal branch of superior mesenteric artery supplying the right colon. Continue with NPO/PPI Close monitoring in ICU. Trend H/H and transfuse as needed. GI Follow up appreciated. Code(s): K92.2 - GASTROINTESTINAL HEMORRHAGE, UNSPECIFIED (2) Hypertension Assessment/Plan: High. Continue with IV NTG. Cardiology input appreciated. Code(s): I10 - ESSENTIAL (PRIMARY) HYPERTENSION (3) BPH (benign prostatic hyperplasia) Assessment/Plan: Stable. Code(s): N40.0 - BENIGN PROSTATIC HYPERPLASIA WITHOUT LOWER URINRY TRACT SYMP (4) Pancreatic mass Assessment/Plan: GI follow up appreciated. To be worked up once medically stable. Code(s): K86.9 - DISEASE OF PANCREAS, UNSPECIFIED (5) Hyperlipemia Code(s): E78.5 - HYPERLIPIDEMIA, UNSPECIFIED (6) Hypothyroid Code(s): E03.9 - HYPOTHYROIDISM, UNSPECIFIED
[2016-12-03] MEDS: MUPIROCIN 2% TOPICAL OINTMENT FOR DECOLONIZATION NS SCH ×2 (16:57→22:35)
[2016-12-03] MEDS: SODIUM CHLORIDE 0.9%/KCL 1,000 ML IV SCH (22:35)
[2016-12-03] MEDS: CHLORHEXIDINE GLUCONATE 4% CLEANSER FOR DECOLONIZATION TP SCH (22:35)
[2016-12-04] MEDS: PANTOPRAZOLE SODIUM 80 MG in SODIUM CHLORIDE 100 ML IVPB SCH ×2 (03:54→15:00)
[2016-12-04 06:50] LABS: MCH 27.2 pg (25.7-33.7); MEAN CELL VOLUME 82.6 fl (80-96); MEAN PLT VOLUME 9.2 fl (7.5-11.1); PLATELET COUNT 95 K/MM3 (134-434); RDW 16.1 % (11.9-15.9); WHITE BLOOD COUNT 12.2 K/mm3 (4.0-10.0)
[2016-12-04 07:15] LABS: ANION GAP 8 (8-16); BILIRUBIN,TOTAL 0.6 mg/dL (0.2-1.0); CALCIUM 7.8 mg/dL (8.5-10.1); CO2 27 mmol/L (21-32); CREATININE 0.8 mg/dL (0.7-1.3); GLUCOSE,RANDOM 93 mg/dL (74-106); SGOT/AST 24 U/L (15-37)
[2016-12-04 07:16] LABS: ALK PHOS 32 U/L (45-117); SGPT/ALT 18 U/L (12-78); TOT PROT 5.2 g/dl (6.4-8.2)
--- NOTE | 2016-12-04 10:09 | PN ---
Progress Note, Physician Chief Complaint: Mr Lan says he is hungry. Denies cp, sob, n/v. Says he had a little bleeding. - Current Medication List Current Medications: Active Medications Chlorhexidine Gluconate (Hibiclens For Decolonization -) 1 applic TP HS [facility] Last Admin: 12/03/16 22:35 Dose: 1 applic Potassium Chloride/Sodium Chloride (Ns+20 Meq Kcl -) 1,000 mls @ 75 mls/hr IV ASDIR STEFANI Last Admin: 12/03/16 22:35 Dose: 75 mls/hr Pantoprazole Sodium 80 mg/ (Sodium Chloride) 100 mls @ 10 mls/hr IVPB Q10H STEFANI PRN Reason: 8 MG/HR Last Admin: 12/04/16 03:54 Dose: 10 mls/hr Nitroglycerin/Dextrose (Nitroglycerin 25mg/D5w 250ml) 250 mls @ 6 mls/hr IVPB TITR STEFANI PRN Reason: 10 MCG/MIN Last Admin: 12/03/16 14:22 Dose: 18 mls/hr Morphine Sulfate (Morphine Injection -) 2 mg IVPUSH Q3H PRN PRN Reason: PAIN Mupirocin (Bactroban Ointment (For Decolonization) -) 1 applic NS BID [facility] Stop: 12/07/16 21:59 Last Admin: 12/03/16 22:35 Dose: 1 applic - Objective Vital Signs: Vital Signs Temperature 37.4 C 12/04/16 06:00 Pulse Rate 98 H 12/04/16 08:00 Respiratory Rate 19 12/04/16 09:00 Blood Pressure 147/56 12/04/16 08:00 O2 Sat by Pulse Oximetry (%) 96 12/04/16 09:00 Constitutional: Yes: Well Nourished, No Distress, Calm Cardiovascular: Yes: Regular Rate and Rhythm. No: Gallop, Murmur, Rub Respiratory: Yes: Regular, CTA Bilaterally. No: Rales, Rhonchi, Wheezes Gastrointestinal: Yes: Normal Bowel Sounds, Soft. No: Distention, Tenderness Extremities: Yes: WNL Edema: No Labs: CBC, BMP 12/04/16 05:35 12/04/16 05:35 INR, PTT INR 1.22 (0.82-1.09) H 12/03/16 05:35 Fibrinogen 211.0 mg/dL (238-498) L 12/02/16 23:55 Problem List - Problems (1) Lower GI bleed Assessment/Plan: -s/p 3 units pRBCS and FFP -underwent embolization of the ileal branch of the SMA -patient states no further bleeding -H/H dropped -continue to monitor -GI following Code(s): K92.2 - GASTROINTESTINAL HEMORRHAGE, UNSPECIFIED (2) Anemia Assessment/Plan: -secondary to LGIB -H/H dropped -monitor, may benefit from transfusion Code(s): D64.9 - ANEMIA, UNSPECIFIED Qualifiers: Anemia type: other cause Other causes of anemia: acute posthemorrhagic Qualified Code(s): D62 - Acute posthemorrhagic anemia (3) Hypertension Assessment/Plan: -continue NTG gtt while npo -when able to eat, change to oral anti-hypertensives Code(s): I10 - ESSENTIAL (PRIMARY) HYPERTENSION (4) BPH (benign prostatic hyperplasia) Assessment/Plan: -restart flomax when placed on diet Code(s): N40.0 - BENIGN PROSTATIC HYPERPLASIA WITHOUT LOWER URINRY TRACT SYMP (5) Hypothyroid Assessment/Plan: -on synthroid, restart when diet restarted -no urgent need for IV synthroid Code(s): E03.9 - HYPOTHYROIDISM, UNSPECIFIED
[2016-12-04] MEDS: SODIUM CHLORIDE 0.9%/KCL 1,000 ML IV SCH ×2 (10:23→22:15)
[2016-12-04] MEDS: MUPIROCIN 2% TOPICAL OINTMENT FOR DECOLONIZATION NS SCH ×2 (10:23→21:39)
[2016-12-04] MEDS: NITROGLYCERIN 25MG/D5W 250ML 250 ML IVPB SCH ×2 (10:24→15:00)
--- NOTE | 2016-12-04 12:34 | PN ---
Teaching Attending Note Name of Resident: Jareth Whalen ATTENDING PHYSICIAN STATEMENT I saw and evaluated the patient. I reviewed the resident's note and discussed the case with the resident. I agree with the resident's findings and plan as documented. SUBJECTIVE: Patient seen and examined in the ICU. Noted to have a 2 gm drop in Hgb. No BM. Mildly confused. Remains on IV NTG. Remains NPO. Intake & Output 12/01/16 12/02/16 12/03/16 12/04/16 23:59 23:59 23:59 23:59 Intake Total 1100 3097.5 Output Total 1350 450 Balance 1100 1747.5 -450 Weight 160 lb 8 oz 163 lb 5.8 oz 165 lb 6 oz Last Vital Signs Temp Pulse Resp BP Pulse Ox 99.3 F 96 H 22 149/58 98 12/04/16 06:00 12/04/16 12:00 12/04/16 12:00 12/04/16 12:00 12/04/16 10:05 Active Medications Chlorhexidine Gluconate (Hibiclens For Decolonization -) 1 applic TP HS [facility] Last Admin: 12/03/16 22:35 Dose: 1 applic Potassium Chloride/Sodium Chloride (Ns+20 Meq Kcl -) 1,000 mls @ 75 mls/hr IV ASDIR STEFANI Last Admin: 12/04/16 10:23 Dose: 75 mls/hr Pantoprazole Sodium 80 mg/ (Sodium Chloride) 100 mls @ 10 mls/hr IVPB Q10H STEFANI PRN Reason: 8 MG/HR Last Admin: 12/04/16 03:54 Dose: 10 mls/hr Nitroglycerin/Dextrose (Nitroglycerin 25mg/D5w 250ml) 250 mls @ 6 mls/hr IVPB TITR STEFANI PRN Reason: 10 MCG/MIN Last Admin: 12/04/16 10:24 Dose: 9 mls/hr Morphine Sulfate (Morphine Injection -) 2 mg IVPUSH Q3H PRN PRN Reason: PAIN Mupirocin (Bactroban Ointment (For Decolonization) -) 1 applic NS BID [facility] Stop: 12/07/16 21:59 Last Admin: 12/04/16 10:23 Dose: 1 applic Constitutional: Yes: Extubated, mildly confused Eyes: Yes: WNL HENT: Yes: WNL Neck: Yes: WNL Cardiovascular: Yes: WNL Respiratory: Yes: clear Gastrointestinal: Yes: WNL ...Rectal Exam: Yes: WNL Renal/: Yes: WNL Breast(s): Yes: WNL Musculoskeletal: Yes: WNL Extremities: Yes: WNL Edema: No Peripheral Pulses WNL: Yes Integumentary: Yes: WNL Laboratory Results - last 24 hr 12/04/16 12/04/16 12/04/16 05:35 05:35 05:35 WBC 12.2 H RBC 2.95 L Hgb 8.0 L D Hct 24.4 L D MCV 82.6 MCH 27.2 MCHC 33.0 RDW 16.1 H Plt Count 95 L MPV 9.2 Sodium 143 Potassium 3.6 Chloride 108 H Carbon Dioxide 27 Anion Gap 8 BUN 11 D Creatinine 0.8 D Creat Clearance w eGFR > 60 Random Glucose 93 D Calcium 7.8 L Phosphorus 2.0 L D Cancelled Magnesium 2.0 Cancelled Total Bilirubin 0.6 D AST 24 D ALT 18 Alkaline Phosphatase 32 L Total Protein 5.2 L Albumin 3.0 L Problem List - Problems (1) Lower GI bleed Code(s): K92.2 - GASTROINTESTINAL HEMORRHAGE, UNSPECIFIED (2) Hypertension Code(s): I10 - ESSENTIAL (PRIMARY) HYPERTENSION (3) Hypothyroid Code(s): E03.9 - HYPOTHYROIDISM, UNSPECIFIED (4) Hyperlipemia Code(s): E78.5 - HYPERLIPIDEMIA, UNSPECIFIED (5) BPH (benign prostatic hyperplasia) Code(s): N40.0 - BENIGN PROSTATIC HYPERPLASIA WITHOUT LOWER URINRY TRACT SYMP Assessment/Plan GI bleed S/P emergency embolization of the ilial branch of the superior mesenteric artery HTN HLD Hypothyroid BPH -NPO -IVF -PPI -O2 as needed -Normal transfusion thresholds -Follow H&H -Wean IV NTG Dr Dominguez Critical care time spent in reviewing chart, evaluating patient and formulating plan - 40 minutes.
[2016-12-04 14:47] LABS: MCH 27.2 pg (25.7-33.7); MCHC 32.9 g/dl (32.0-35.9); MEAN CELL VOLUME 82.6 fl (80-96); MEAN PLT VOLUME 8.9 fl (7.5-11.1); PLATELET COUNT 96 K/MM3 (134-434); RDW 16.1 % (11.9-15.9)
--- NOTE | 2016-12-04 14:57 | PN ---
Physical Exam: SUBJECTIVE: Patient seen and examined. Patient states that feels well today, but is confused and forgetful. He repeatedly tries to leave his bed. He complains of minor pain in his abdomen after his procedure. OBJECTIVE: Vital Signs Period Temp Pulse Resp BP Sys/Brower Pulse Ox Last 24 Hr 98.2 F-99.6 F 84-106 13-22 107-149/55-78 95-98 GENERAL: The patient is awake, alert, and oriented, but forgetful. in no acute distress. HEAD: Normal with no signs of trauma. EYES: extraocular movements intact, sclera anicteric, conjunctiva clear. No ptosis. NECK: Trachea midline, full range of motion, supple. LUNGS: Breath sounds equal, clear to auscultation bilaterally, no wheezes, no crackles, no accessory muscle use. HEART: Regular rate and rhythm, S1, S2 without murmur, rub or gallop. ABDOMEN: Soft, nontender, nondistended, normoactive bowel sounds, no guarding, no rebound. EXTREMITIES: 2+ pulses, warm, well-perfused, no edema. NEUROLOGICAL: Cranial nerves II through X grossly intact. Normal speech, gait not observed. SKIN: Warm, dry, normal turgor, no rashes or lesions noted Laboratory Results - last 24 hr 12/03/16 12/04/16 12/04/16 05:35 05:35 05:35 WBC 12.2 H RBC 2.95 L Hgb 8.0 L D Hct 24.4 L D MCV 82.6 MCH 27.2 MCHC 33.0 RDW 16.1 H Plt Count 95 L MPV 9.2 Sodium 143 Potassium 3.6 Chloride 108 H Carbon Dioxide 27 Anion Gap 8 BUN 11 D Creatinine 0.8 D Creat Clearance w eGFR > 60 Random Glucose 93 D Calcium 7.8 L Ionized Calcium 5.3 Phosphorus 2.0 L D Magnesium 2.0 Total Bilirubin 0.6 D AST 24 D ALT 18 Alkaline Phosphatase 32 L Total Protein 5.2 L Albumin 3.0 L 12/04/16 12/04/16 05:35 14:00 WBC 13.0 H RBC 2.92 L Hgb 7.9 L Hct 24.1 L MCV 82.6 MCH 27.2 MCHC 32.9 RDW 16.1 H Plt Count 96 L MPV 8.9 Sodium Potassium Chloride Carbon Dioxide Anion Gap BUN Creatinine Creat Clearance w eGFR Random Glucose Calcium Ionized Calcium Phosphorus Cancelled Magnesium Cancelled Total Bilirubin AST ALT Alkaline Phosphatase Total Protein Albumin Active Medications Generic Name Dose Route Start Last Admin Trade Name Beba PRN Reason Stop Dose Admin Chlorhexidine Gluconate 1 applic 12/02/16 22:00 12/03/16 22:35 Hibiclens For Decolonization - TP 1 applic HS STEFANI Administration Potassium Chloride/Sodium Chloride 1,000 mls @ 75 mls/hr 12/02/16 21:00 10:23 Ns+20 Meq Kcl - IV 75 mls/hr ASDIR STEFANI Administration Pantoprazole Sodium 80 mg/ 100 mls @ 10 mls/hr 12/02/16 21:45 12/04/16 03:54 Sodium Chloride IVPB 10 mls/hr Q10H STEFANI Administration 8 MG/HR Nitroglycerin/Dextrose 250 mls @ 6 mls/hr 12/03/16 06:15 12/04/16 10:24 Nitroglycerin 25mg/D5w 250ml IVPB 9 mls/hr TITR STEFANI Administration 10 MCG/MIN Ceftriaxone Sodium 1 gm/ 50 mls @ 100 mls/hr 12/05/16 10:00 Dextrose IVPB DAILY STEFANI Metronidazole 100 mls @ 100 mls/hr 12/04/16 15:00 Flagyl 500mg Premixed Ivpb - IVPB Q8H-IV STEFANI Morphine Sulfate 2 mg 12/03/16 09:38 Morphine Injection - IVPUSH Q3H PRN PAIN Mupirocin 1 applic 12/02/16 22:00 12/04/16 10:23 Bactroban Ointment (For Decolonization) - NS 12/07/16 21:59 1 applic BID STEFANI Administration ASSESSMENT/PLAN: The patient is a 86 YO M w/ PMH HTN, HLD, Hypothyroid, Gastric ulcers. Presented to the ED with BRBPR. He had an episode of a large amount of kristi blood in the ED resulting in a drop in blood pressure. He is S/p embolization pof the iliac branch of the SMA. Neuro: -a&o x3; confused and forgetful at times Cardiology: -PMH HTN -patient on nitro gtt while he is NPO -will resume PO meds once patient begins to eat Abdominal: -patient is s/p embolization for acute lower GIB -large bloody bowel movement resulted in 2gram drop in H/H -s/p 2 units PRBC and 2 units FFP this admission -most recent Hb is 7.9; will recheck at 8 this PM. -continue to monitor hemodynamic status -no more bowel movements since procedure FEN: -NS+ 20meq KCL @ 75 -will continue to monitor lytes -NPO, will advance diet as per GI Prophylaxsis: -protonix gtt -DVT prophy contraindicated 2/2 GIB Dispo: -continue to monitor in the ICU Problem List - Problems (1) Anemia Code(s): D64.9 - ANEMIA, UNSPECIFIED Qualifiers: Anemia type: other cause Other causes of anemia: acute posthemorrhagic Qualified Code(s): D62 - Acute posthemorrhagic anemia (2) Hypertension Code(s): I10 - ESSENTIAL (PRIMARY) HYPERTENSION (3) Hypothyroid Code(s): E03.9 - HYPOTHYROIDISM, UNSPECIFIED (4) Lower GI bleed Code(s): K92.2 - GASTROINTESTINAL HEMORRHAGE, UNSPECIFIED Visit type - Emergency Visit Emergency Visit: Yes ED Registration Date: 12/02/16 Care time: The patient presented to the Emergency Department on the above date and was hospitalized for further evaluation of their emergent condition. - New Patient This patient is new to me today: Yes Date on this admission: 12/04/16 - Critical Care Critical Care patient: Yes Total Critical Care Time (in minutes): 40 Critical Care Statement: The care of this patient involved high complexity decision making to prevent further life threatening deterioration of the patient 's condition and/or to evaluate & treat vital organ system(s) failure or risk of failure.
[2016-12-04] MEDS: METRONIDAZOLE 500 MG PREMIXED 100 ML IVPB SCH ×2 (15:51→18:54)
[2016-12-04] MEDS: CEFTRIAXONE 50 ML IVPB SCH (15:52)
--- NOTE | 2016-12-04 18:42 | PN ---
GI Progress Note Subjective: Patient seen in the ICU. Had bowel movement this evening , none since 3am Sunday. Patient extubated - Objective Vital Signs: Vital Signs Temperature 99.4 F 12/04/16 15:00 Pulse Rate 92 H 12/04/16 16:00 Respiratory Rate 16 12/04/16 16:00 Blood Pressure 142/67 12/04/16 16:00 O2 Sat by Pulse Oximetry (%) 98 12/04/16 10:05 Constitutional: Well Nourished, Poor Hygeine HENT: Yes: Atraumatic Neck: Yes: Supple Cardiovascular: Yes: Regular Rate and Rhythm Respiratory: Yes: CTA Bilaterally ...Palpate: Yes: Soft. No: Firm/Rigid, Guarding, Hepatomegaly, Mass, Pulsatile Mass, Splenomegaly, Tenderness Labs: CBC, BMP 12/04/16 14:00 12/04/16 05:35 INR, PTT INR 1.22 (0.82-1.09) H 12/03/16 05:35 Fibrinogen 211.0 mg/dL (238-498) L 12/02/16 23:55 Problem List - Problems (1) Lower GI bleed Assessment/Plan: R> for colonoscopy in am clinical findings discussed with Zach and Narcisa his daughter Code(s): K92.2 - GASTROINTESTINAL HEMORRHAGE, UNSPECIFIED (2) Pancreatic mass Code(s): K86.9 - DISEASE OF PANCREAS, UNSPECIFIED
[2016-12-04] MEDS ORDERED: PT OWN MED DRAWER 7, Y5N ONE (21:29)
[2016-12-04] MEDS: CHLORHEXIDINE GLUCONATE 4% CLEANSER FOR DECOLONIZATION TP SCH (21:39)
[2016-12-05] MEDS: METRONIDAZOLE 500 MG PREMIXED 100 ML IVPB SCH ×3 (02:03→18:18)
[2016-12-05] MEDS: PANTOPRAZOLE SODIUM 80 MG in SODIUM CHLORIDE 100 ML IVPB SCH ×3 (03:03→20:11)
[2016-12-05 06:30] LABS: BASOPHIL 0.4 % (0-2.0); EOSINOPHIL 0.7 % (0-4.5); MCH 28.7 pg (25.7-33.7); MCHC 34.1 g/dl (32.0-35.9); MEAN CELL VOLUME 84.2 fl (80-96); MEAN PLT VOLUME 9.3 fl (7.5-11.1); NEUTROPHILS 80.2 % (42.8-82.8); PLATELET COUNT 101 K/MM3 (134-434); RDW 15.5 % (11.9-15.9); WHITE BLOOD COUNT 13.8 K/mm3 (4.0-10.0)
[2016-12-05 07:01] LABS: ANION GAP 9 (8-16); CALCIUM 7.6 mg/dL (8.5-10.1); CO2 26 mmol/L (21-32); CREATININE 0.8 mg/dL (0.7-1.3); GLUCOSE,RANDOM 91 mg/dL (74-106); MAGNESIUM 1.6 mg/dL (1.8-2.4); PHOSPHOROUS 1.7 mg/dL (2.5-4.9)
[2016-12-05] MEDS: NITROGLYCERIN 25MG/D5W 250ML 250 ML IVPB SCH (07:22)
[2016-12-05] MEDS ORDERED: MAGNESIUM CITRATE 300 ML BOTTLE PO ONE (08:00)
--- NOTE | 2016-12-05 08:15 | PN ---
Physical Exam: SUBJECTIVE: Patient seen and examined by bedside. Denies any current complaints. s/p 2 units of pRBCs from last night. Pt and patient's family are awaiting colonoscopy today for lower GI bleed. OBJECTIVE: Vital Signs Period Temp Pulse Resp BP Sys/Brower Pulse Ox Last 24 Hr 98.7 F-99.4 F 86-113 12-22 110-162/55-92 96-98 GENERAL: The patient is awake, alert, and fully oriented, in no acute distress. HEAD: Normal with no signs of trauma. EYES: PERRL, extraocular movements intact, sclera anicteric, conjunctiva clear. No ptosis. ENT: Ears normal, nares patent, oropharynx clear without exudates, moist mucous membranes. NECK: Trachea midline, full range of motion, supple. LUNGS: Breath sounds equal, clear to auscultation bilaterally, no wheezes, no crackles, no accessory muscle use. HEART: Regular rate and rhythm, S1, S2 without murmur, rub or gallop. ABDOMEN: Soft, nontender, nondistended, normoactive bowel sounds, no guarding, no rebound, no hepatosplenomegaly, no masses. EXTREMITIES: 2+ pulses, warm, well-perfused, no edema. NEUROLOGICAL: Cranial nerves II through XII grossly intact. Normal speech, gait not observed. PSYCH: Normal mood, normal affect. SKIN: Warm, dry, normal turgor, no rashes or lesions noted Laboratory Results - last 24 hr 12/03/16 12/03/16 12/04/16 05:35 05:35 05:35 WBC RBC Hgb Hct MCV MCH MCHC RDW Plt Count MPV Neutrophils % Lymphocytes % Monocytes % Eosinophils % Basophils % Sodium 143 Potassium 3.6 Chloride 108 H Carbon Dioxide 27 Anion Gap 8 BUN 11 D Creatinine 0.8 D Creat Clearance w eGFR > 60 Random Glucose 93 D Calcium 7.8 L Ionized Calcium 5.3 Phosphorus 2.0 L D Magnesium 2.0 Total Bilirubin 0.6 D AST 24 D ALT 18 Alkaline Phosphatase 32 L Total Protein 5.2 L Albumin 3.0 L CA 19-9 Antigen 3 12/04/16 12/05/16 12/05/16 14:00 05:15 05:15 WBC 13.0 H 13.8 H RBC 2.92 L 3.09 L Hgb 7.9 L 8.9 L D Hct 24.1 L 26.0 L MCV 82.6 84.2 MCH 27.2 28.7 MCHC 32.9 34.1 RDW 16.1 H 15.5 Plt Count 96 L 101 L MPV 8.9 9.3 Neutrophils % 80.2 Lymphocytes % 9.8 D Monocytes % 8.9 Eosinophils % 0.7 Basophils % 0.4 Sodium 142 Potassium 3.1 L Chloride 107 Carbon Dioxide 26 Anion Gap 9 BUN 7 D Creatinine 0.8 Creat Clearance w eGFR Random Glucose 91 Calcium 7.6 L Ionized Calcium Phosphorus 1.7 L Magnesium 1.6 L Total Bilirubin AST ALT Alkaline Phosphatase Total Protein Albumin CA 19-9 Antigen Active Medications Generic Name Dose Route Start Last Admin Trade Name Freq PRN Reason Stop Dose Admin Chlorhexidine Gluconate 1 applic 12/02/16 22:00 12/04/16 21:39 Hibiclens For Decolonization - TP 1 applic HS STEFANI Administration Potassium Chloride/Sodium Chloride 1,000 mls @ 75 mls/hr 12/02/16 21:00 22:15 Ns+20 Meq Kcl - IV 75 mls/hr ASDIR STEFANI Administration Pantoprazole Sodium 80 mg/ 100 mls @ 10 mls/hr 12/02/16 21:45 12/05/16 03:03 Sodium Chloride IVPB 10 mls/hr Q10H STEFANI Administration 8 MG/HR Nitroglycerin/Dextrose 250 mls @ 6 mls/hr 12/03/16 06:15 12/05/16 07:22 Nitroglycerin 25mg/D5w 250ml IVPB Not Given TITR STEFANI 10 MCG/MIN Ceftriaxone Sodium 50 mls @ 100 mls/hr 12/04/16 15:00 12/04/16 15:52 Rocephin 1gm Ivpb (Pre-Docked) IVPB 100 mls/hr DAILY STEFANI Administration Metronidazole 100 mls @ 100 mls/hr 12/04/16 15:00 12/05/16 02:03 Flagyl 500mg Premixed Ivpb - IVPB 100 mls/hr Q8H-IV STEFANI Administration Morphine Sulfate 2 mg 12/03/16 09:38 Morphine Injection - IVPUSH Q3H PRN PAIN Mupirocin 1 applic 12/02/16 22:00 12/04/16 21:39 Bactroban Ointment (For Decolonization) - NS 12/07/16 21:59 1 applic BID STEFANI Administration Sodium Phosphate 133 ml 12/05/16 12:00 Fleet Adult Rectal Enema - PA 12/05/16 12:01 ONCE ONE ASSESSMENT/PLAN: 86 year old male pmh HTN, hypothyroid, and gastric ulcers presented with ED with bright red blood per rectum. In the hospital s/p embolization of iliac branch of SMA. Neuro: -Alert and oriented x3, occasionally confused but has good memory Cardiology: -past medical history of hypertension (MAP 78 today) -continue patient on nitro gtt while he is NPO -resume PO meds post colonoscopy when diet is advnaced -s/p 2 units pRBCs and 2 units FFP Abdominal: -pt with acute lower gastrointestinal bleed -s/p embolization of iliac branch of SMA -most recent Hb is 8.9 -trend Hgb in am -continue to monitor hemodynamic status for hypotension -received enema and mg solution prior to colonoscopy -f/u with Dr. Cheek on colonoscopy results FEN: -NS+ 20meq KCL @ 75 -NPO, will advance diet post colonoscopy Prophylaxsis: -protonix drip Dispo: -continue to monitor in the ICU Problem List - Problems (1) Anemia Code(s): D64.9 - ANEMIA, UNSPECIFIED Qualifiers: Anemia type: other cause Other causes of anemia: acute posthemorrhagic Qualified Code(s): D62 - Acute posthemorrhagic anemia (2) BPH (benign prostatic hyperplasia) Code(s): N40.0 - BENIGN PROSTATIC HYPERPLASIA WITHOUT LOWER URINRY TRACT SYMP (3) Hypertension Code(s): I10 - ESSENTIAL (PRIMARY) HYPERTENSION (4) Hypothyroid Code(s): E03.9 - HYPOTHYROIDISM, UNSPECIFIED (5) Lower GI bleed Code(s): K92.2 - GASTROINTESTINAL HEMORRHAGE, UNSPECIFIED Visit type - Emergency Visit Emergency Visit: No - New Patient This patient is new to me today: Yes Date on this admission: 12/05/16 - Critical Care Critical Care patient: Yes Total Critical Care Time (in minutes): 35 Critical Care Statement: The care of this patient involved high complexity decision making to prevent further life threatening deterioration of the patient 's condition and/or to evaluate & treat vital organ system(s) failure or risk of failure. Quality Measures-Exclusions - VTE Prophylaxis Contraindications to VTE Prophylaxis: Bleeding (GI bleed)
[2016-12-05] MEDS: KCL 10 MEQ IVPB 100 ML IVPB SCH ×3 (08:42→11:52)
[2016-12-05] MEDS ORDERED: MAGNESIUM SULF 50% (8.12 MEQ/2 ML-1 GM VIAL) IVPB ONE ×2 (08:45→11:45)
[2016-12-05] MEDS: CEFTRIAXONE 50 ML IVPB SCH (09:45)
[2016-12-05] MEDS: MUPIROCIN 2% TOPICAL OINTMENT FOR DECOLONIZATION NS SCH ×3 (09:45→21:48)
--- NOTE | 2016-12-05 11:32 | PN ---
Teaching Attending Note Name of Resident: Ap Jamil ATTENDING PHYSICIAN STATEMENT I saw and evaluated the patient. I reviewed the resident's note and discussed the case with the resident. I agree with the resident's findings and plan as documented. SUBJECTIVE: Patient seen and examined in the ICU. Recurrent bleeding overnight requiring 2 additional units of pRBCs. Remains mildly confused. Currently off IV NTG. Intake & Output 12/02/16 12/03/16 12/04/16 12/05/16 23:59 23:59 23:59 23:59 Intake Total 1100 3097.5 2517 745 Output Total 1350 910 Balance 1100 1747.5 1607 745 Weight 160 lb 8 oz 163 lb 5.8 oz 165 lb 6 oz 159 lb 4 oz Last Vital Signs Temp Pulse Resp BP Pulse Ox 98.9 F 97 H 16 113/56 98 12/05/16 10:00 12/05/16 10:00 12/05/16 10:00 12/05/16 10:00 12/05/16 08:51 Home Medication List Medication Instructions Recorded Confirmed Type Levothyroxine [Synthroid -] 100 mcg PO DAILY 12/02/16 12/02/16 History Tamsulosin HCl [Flomax] 0.4 mg PO DAILY 12/02/16 12/02/16 History Valsartan/Hydrochlorothiazide 1 each PO DAILY 12/02/16 12/02/16 History [Valsartan-Hctz 80-12.5 mg Tab] Active Medications Chlorhexidine Gluconate (Hibiclens For Decolonization -) 1 applic TP HS [facility] Last Admin: 12/04/16 21:39 Dose: 1 applic Potassium Chloride/Sodium Chloride (Ns+20 Meq Kcl -) 1,000 mls @ 75 mls/hr IV ASDIR STEFANI Last Admin: 12/04/16 22:15 Dose: 75 mls/hr Pantoprazole Sodium 80 mg/ (Sodium Chloride) 100 mls @ 10 mls/hr IVPB Q10H STEFANI PRN Reason: 8 MG/HR Last Admin: 12/05/16 09:44 Dose: 10 mls/hr Ceftriaxone Sodium (Rocephin 1gm Ivpb (Pre-Docked)) 50 mls @ 100 mls/hr IVPB DAILY [facility] Last Admin: 12/05/16 09:45 Dose: 100 mls/hr Metronidazole (Flagyl 500mg Premixed Ivpb -) 100 mls @ 100 mls/hr IVPB Q8H-IV STEFANI Last Admin: 12/05/16 09:44 Dose: 100 mls/hr Potassium Chloride (Potassium Chloride 10 Meq Premix Ivpb -) 100 mls @ 100 mls/ hr IVPB Q60M STEFANI Stop: 12/05/16 12:14 Last Admin: 12/05/16 10:01 Dose: 100 mls/hr Magnesium Sulfate (Magnesium Sulfate) 1 gm IVPB ONCE ONE Stop: 12/05/16 11:21 Morphine Sulfate (Morphine Injection -) 2 mg IVPUSH Q3H PRN PRN Reason: PAIN Mupirocin (Bactroban Ointment (For Decolonization) -) 1 applic NS BID [facility] Stop: 12/07/16 21:59 Last Admin: 12/05/16 09:45 Dose: 1 applic Sodium Phosphate (Fleet Adult Rectal Enema -) 133 ml HI ONCE ONE Stop: 12/05/16 12:01 Constitutional: Yes: Extubated, mildly confused Eyes: Yes: WNL HENT: Yes: WNL Neck: Yes: WNL Cardiovascular: Yes: WNL Respiratory: Yes: clear Gastrointestinal: Yes: WNL ...Rectal Exam: Yes: WNL Renal/: Yes: WNL Breast(s): Yes: WNL Musculoskeletal: Yes: WNL Extremities: Yes: WNL Edema: No Peripheral Pulses WNL: Yes Integumentary: Yes: WNL Laboratory Results - last 24 hr 12/02/16 12/03/16 12/03/16 11:25 05:35 05:35 WBC RBC Hgb Hct MCV MCH MCHC RDW Plt Count MPV Neutrophils % Lymphocytes % Monocytes % Eosinophils % Basophils % Sodium Potassium Chloride Carbon Dioxide Anion Gap BUN Creatinine Random Glucose Calcium Ionized Calcium 5.3 Phosphorus Magnesium CA 19-9 Antigen 3 Blood Type O POSITIVE Antibody Screen Crossmatch See Detail 12/04/16 12/05/16 12/05/16 14:00 05:15 05:15 WBC 13.0 H 13.8 H RBC 2.92 L 3.09 L Hgb 7.9 L 8.9 L D Hct 24.1 L 26.0 L MCV 82.6 84.2 MCH 27.2 28.7 MCHC 32.9 34.1 RDW 16.1 H 15.5 Plt Count 96 L 101 L MPV 8.9 9.3 Neutrophils % 80.2 Lymphocytes % 9.8 D Monocytes % 8.9 Eosinophils % 0.7 Basophils % 0.4 Sodium 142 Potassium 3.1 L Chloride 107 Carbon Dioxide 26 Anion Gap 9 BUN 7 D Creatinine 0.8 Random Glucose 91 Calcium 7.6 L Ionized Calcium Phosphorus 1.7 L Magnesium 1.6 L CA 19-9 Antigen Blood Type Antibody Screen Crossmatch 12/05/16 05:15 WBC RBC Hgb Hct MCV MCH MCHC RDW Plt Count MPV Neutrophils % Lymphocytes % Monocytes % Eosinophils % Basophils % Sodium Potassium Chloride Carbon Dioxide Anion Gap BUN Creatinine Random Glucose Calcium Ionized Calcium Phosphorus Magnesium CA 19-9 Antigen Blood Type O POSITIVE Antibody Screen Negative Crossmatch Problem List - Problems (1) Lower GI bleed Code(s): K92.2 - GASTROINTESTINAL HEMORRHAGE, UNSPECIFIED (2) Hypertension Code(s): I10 - ESSENTIAL (PRIMARY) HYPERTENSION (3) Hypothyroid Code(s): E03.9 - HYPOTHYROIDISM, UNSPECIFIED (4) Hyperlipemia Code(s): E78.5 - HYPERLIPIDEMIA, UNSPECIFIED (5) BPH (benign prostatic hyperplasia) Code(s): N40.0 - BENIGN PROSTATIC HYPERPLASIA WITHOUT LOWER URINRY TRACT SYMP Assessment/Plan GI bleed S/P emergency embolization of the ilial branch of the superior mesenteric artery Recurrent bleeding HTN HLD Hypothyroid BPH -For Endoscopy -NPO -IVF -PPI -O2 as needed -Normal transfusion thresholds -Follow H&H Dr Dominguez Critical care time spent in reviewing chart, evaluating patient and formulating plan - 40 minutes.
[2016-12-05] MEDS ORDERED: SODIUM PHOSPHATE/NA BIPHOS 133 ML ENEMA PR ONE (12:00)
[2016-12-05] MEDS ORDERED: SODIUM PHOSPHATE/NA BIPHOS 133 ML ENEMA RC ONE ×2 (12:30→13:00)
--- NOTE | 2016-12-05 13:14 | PN ---
Progress Note (short form) - Note Progress Note: CC: GIB S: no cp, sob, palps, dizziness. per report, had bleed overnight --> going for colonoscopy today. + fatigue, possibly more confused. Current Medications Chlorhexidine Gluconate (Hibiclens For Decolonization -) 1 applic TP HS [facility] Last Admin: 12/04/16 21:39 Dose: 1 applic Potassium Chloride/Sodium Chloride (Ns+20 Meq Kcl -) 1,000 mls @ 75 mls/hr IV ASDIR STEFANI Last Admin: 12/04/16 22:15 Dose: 75 mls/hr Pantoprazole Sodium 80 mg/ (Sodium Chloride) 100 mls @ 10 mls/hr IVPB Q10H [facility] PRN Reason: 8 MG/HR Last Admin: 12/05/16 09:44 Dose: 10 mls/hr Ceftriaxone Sodium (Rocephin 1gm Ivpb (Pre-Docked)) 50 mls @ 100 mls/hr IVPB DAILY [facility] Last Admin: 12/05/16 09:45 Dose: 100 mls/hr Metronidazole (Flagyl 500mg Premixed Ivpb -) 100 mls @ 100 mls/hr IVPB Q8H-IV ST[facility] Last Admin: 12/05/16 09:44 Dose: 100 mls/hr Morphine Sulfate (Morphine Injection -) 2 mg IVPUSH Q3H PRN PRN Reason: PAIN Mupirocin (Bactroban Ointment (For Decolonization) -) 1 applic NS BID [facility] Stop: 12/07/16 21:59 Last Admin: 12/05/16 09:45 Dose: 1 applic Vital Signs - 24 hr 12/04/16 12/04/16 12/04/16 14:00 15:00 16:00 Temperature 99.3 F 99.4 F Pulse Rate 98 H 93 H 92 H Respiratory 22 20 16 Rate Blood Pressure 138/69 135/80 142/67 O2 Sat by Pulse Oximetry (%) 12/04/16 12/04/16 12/04/16 18:00 18:38 19:00 Temperature 99.2 F Pulse Rate 86 91 H Respiratory 16 15 Rate Blood Pressure 137/90 155/75 O2 Sat by Pulse 98 Oximetry (%) 12/04/16 12/04/16 12/04/16 20:00 21:00 22:00 Temperature 98.7 F Pulse Rate 94 H 95 H 96 H Respiratory 13 20 17 Rate Blood Pressure 162/81 162/81 145/86 O2 Sat by Pulse 98 98 Oximetry (%) 12/05/16 12/05/16 12/05/16 00:00 02:00 03:00 Temperature 99.1 F Pulse Rate 96 H 113 H 92 H Respiratory 22 20 21 Rate Blood Pressure 158/66 129/82 127/71 O2 Sat by Pulse Oximetry (%) 12/05/16 12/05/16 12/05/16 04:00 05:00 06:00 Temperature 99.3 F Pulse Rate 94 H 98 H 95 H Respiratory 12 19 15 Rate Blood Pressure 110/58 150/72 119/92 O2 Sat by Pulse Oximetry (%) 12/05/16 12/05/16 12/05/16 07:00 08:00 08:49 Temperature Pulse Rate 85 98 H Respiratory 16 20 Rate Blood Pressure 108/56 110/73 O2 Sat by Pulse 98 Oximetry (%) 12/05/16 12/05/16 12/05/16 08:51 10:00 11:00 Temperature 98.9 F Pulse Rate 97 H 89 Respiratory 20 16 18 Rate Blood Pressure 113/56 113/66 O2 Sat by Pulse 98 Oximetry (%) 12/05/16 12/05/16 12:00 13:00 Temperature Pulse Rate 89 98 H Respiratory 19 18 Rate Blood Pressure 116/60 132/64 O2 Sat by Pulse Oximetry (%) Intake & Output 12/03/16 12/04/16 12/05/16 12/06/16 07:59 07:59 07:59 07:59 Intake Total 2905 1292.5 3262 950 Output Total 750 1050 460 100 Balance 2155 242.5 2802 850 Weight 163 lb 5.8 oz 165 lb 6 oz 159 lb 4 oz nad, calm jvd flat, neck supple ctab, nl effort rrr with occasional ectopy, nl s1, s2 no mrg + bs soft nt nd ext without e/c/c + dp/pt alert, oriented no jaundice, diaphoresis or pallor no carotid bruit CBC, BMP 12/05/16 05:15 12/05/16 05:15 Laboratory Tests 12/05/16 05:15 Magnesium 1.6 L tele: sr with frequent pacs, pvcs, ventricular bigeminy. 3 beat nsvt EKG 12/02: 11 am: SR with pac's (atrial bigeminy). leftward axis, non-specific t wave flattening. EKG 12/02 22:56: sr with pac's, pvc's and subsequent ventricular escape. ? lead reversal. t waves no longer flattened in lateral leads. CXR: no acute pulmonary pathology. 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 HTN - Initially hypertensive and placed on nitroglycerin drip, now weaned off. BP reasonably controlled off anti-hypertensives, but also had bleed overnight. Con' t to monitor. atrial/ventricular ectopy - Continues to need ongoing lyte repletion. Will repeat echo tomorrow. HL - not on statin as outpatient b/c of h/o myositis. GIB: - s/p embolization. ongoing mgm't per pmd/GI - ongoing bleeding, plan for colonoscopy today cct 35 min.
--- NOTE | 2016-12-05 14:27 | PN ---
Progress Note, Physician Chief Complaint: Mr Lan says he feels lousy but cannot say why. Denies cp, sob, n/v, fevers, or any other concern. RN says still having hematochezia - Current Medication List Current Medications: Active Medications Chlorhexidine Gluconate (Hibiclens For Decolonization -) 1 applic TP HS [facility] Last Admin: 12/04/16 21:39 Dose: 1 applic Chlorhexidine Gluconate (Hibiclens For Decolonization -) 1 applic TP HS [facility] Potassium Chloride/Sodium Chloride (Ns+20 Meq Kcl -) 1,000 mls @ 75 mls/hr IV ASDIR STEFANI Last Admin: 12/04/16 22:15 Dose: 75 mls/hr Pantoprazole Sodium 80 mg/ (Sodium Chloride) 100 mls @ 10 mls/hr IVPB Q10H [facility] PRN Reason: 8 MG/HR Last Admin: 12/05/16 09:44 Dose: 10 mls/hr Ceftriaxone Sodium (Rocephin 1gm Ivpb (Pre-Docked)) 50 mls @ 100 mls/hr IVPB DAILY [facility] Last Admin: 12/05/16 09:45 Dose: 100 mls/hr Metronidazole (Flagyl 500mg Premixed Ivpb -) 100 mls @ 100 mls/hr IVPB Q8H-IV [facility] Last Admin: 12/05/16 09:44 Dose: 100 mls/hr Morphine Sulfate (Morphine Injection -) 2 mg IVPUSH Q3H PRN PRN Reason: PAIN Mupirocin (Bactroban Ointment (For Decolonization) -) 1 applic NS BID [facility] Stop: 12/07/16 21:59 Last Admin: 12/05/16 09:45 Dose: 1 applic Mupirocin (Bactroban Ointment (For Decolonization) -) 1 applic NS BID [facility] Stop: 12/10/16 21:59 - Objective Vital Signs: Vital Signs Temperature 37.2 C 12/05/16 10:00 Pulse Rate 98 H 12/05/16 13:00 Respiratory Rate 18 12/05/16 13:00 Blood Pressure 132/64 12/05/16 13:00 O2 Sat by Pulse Oximetry (%) 98 12/05/16 08:51 Constitutional: Yes: Well Nourished, No Distress, Calm Cardiovascular: Yes: Regular Rate and Rhythm. No: Gallop, Murmur, Rub Respiratory: Yes: Regular, CTA Bilaterally. No: Rales, Rhonchi, Wheezes Gastrointestinal: Yes: Normal Bowel Sounds, Soft. No: Distention, Tenderness Extremities: Yes: WNL Edema: No Labs: CBC, BMP 12/05/16 05:15 12/05/16 05:15 INR, PTT INR 1.22 (0.82-1.09) H 12/03/16 05:35 Fibrinogen 211.0 mg/dL (238-498) L 12/02/16 23:55 Problem List - Problems (1) Lower GI bleed Code(s): K92.2 - GASTROINTESTINAL HEMORRHAGE, UNSPECIFIED (2) Anemia Code(s): D64.9 - ANEMIA, UNSPECIFIED Qualifiers: Anemia type: other cause Other causes of anemia: acute posthemorrhagic Qualified Code(s): D62 - Acute posthemorrhagic anemia (3) Hypertension Code(s): I10 - ESSENTIAL (PRIMARY) HYPERTENSION (4) BPH (benign prostatic hyperplasia) Code(s): N40.0 - BENIGN PROSTATIC HYPERPLASIA WITHOUT LOWER URINRY TRACT SYMP (5) Hypothyroid Code(s): E03.9 - HYPOTHYROIDISM, UNSPECIFIED Assessment/Plan (1) Lower GI bleed Assessment/Plan: -continues to have bleeding -received another 2 units pRBCs overnight -now s/p 5 units -GI following -planning for colonoscopy today -empirically on rocephin and flagyl per GI Code(s): K92.2 - GASTROINTESTINAL HEMORRHAGE, UNSPECIFIED (2) Anemia Assessment/Plan: -continue to monitor -secondary to LGIB -transfusion as above Code(s): D64.9 - ANEMIA, UNSPECIFIED Qualifiers: Anemia type: other cause Other causes of anemia: acute posthemorrhagic Qualified Code(s): D62 - Acute posthemorrhagic anemia (3) Hypertension Assessment/Plan: -NTG gtt stopped -monitor Code(s): I10 - ESSENTIAL (PRIMARY) HYPERTENSION (4) BPH (benign prostatic hyperplasia) Assessment/Plan: -restart flomax when placed on diet Code(s): N40.0 - BENIGN PROSTATIC HYPERPLASIA WITHOUT LOWER URINRY TRACT SYMP (5) Hypothyroid Assessment/Plan: -on synthroid, restart when diet restarted -no urgent need for IV synthroid Code(s): E03.9 - HYPOTHYROIDISM, UNSPECIFIED
[2016-12-05] MEDS ORDERED: morphine CARPU-JECT 4 MG/1 ML DISP.SYRIN IVPUSH PRN (15:01)
[2016-12-05 15:36] LABS: MCH 28.3 pg (25.7-33.7); MCHC 33.4 g/dl (32.0-35.9); MEAN CELL VOLUME 84.5 fl (80-96); MEAN PLT VOLUME 9.3 fl (7.5-11.1); PLATELET COUNT 96 K/MM3 (134-434); RDW 15.8 % (11.9-15.9); WHITE BLOOD COUNT 12.9 K/mm3 (4.0-10.0)
[2016-12-05] MEDS: SODIUM CHLORIDE 0.9%/KCL 1,000 ML IV SCH (18:00)
[2016-12-05] MEDS ORDERED: CHLORHEXIDINE GLUCONATE 4% CLEANSER FOR DECOLONIZATION TP SCH (22:00)
[2016-12-05 22:46] LABS: MCH 28.8 pg (25.7-33.7); MCHC 33.7 g/dl (32.0-35.9); MEAN CELL VOLUME 85.7 fl (80-96); MEAN PLT VOLUME 9.7 fl (7.5-11.1); PLATELET COUNT 94 K/MM3 (134-434); RDW 15.7 % (11.9-15.9); WHITE BLOOD COUNT 13.2 K/mm3 (4.0-10.0)
[2016-12-06] MEDS: METRONIDAZOLE 500 MG PREMIXED 100 ML IVPB SCH ×3 (01:53→18:52)
[2016-12-06] MEDS: PANTOPRAZOLE SODIUM 80 MG in SODIUM CHLORIDE 100 ML IVPB SCH ×4 (01:53→18:48)
[2016-12-06 06:32] LABS: MCHC 34.1 g/dl (32.0-35.9); MEAN CELL VOLUME 85.1 fl (80-96); MEAN PLT VOLUME 9.8 fl (7.5-11.1); PLATELET COUNT 99 K/MM3 (134-434); RDW 15.7 % (11.9-15.9); WHITE BLOOD COUNT 12.3 K/mm3 (4.0-10.0)
[2016-12-06 06:53] LABS: ANION GAP 7 (8-16); CALCIUM 7.3 mg/dL (8.5-10.1); CO2 27 mmol/L (21-32); CREATININE 0.8 mg/dL (0.7-1.3); GLUCOSE,RANDOM 93 mg/dL (74-106); MAGNESIUM 2.1 mg/dL (1.8-2.4); PHOSPHOROUS 1.6 mg/dL (2.5-4.9)
--- NOTE | 2016-12-06 09:42 | PN ---
Teaching Attending Note Name of Resident: Ap Jamil ATTENDING PHYSICIAN STATEMENT I saw and evaluated the patient. I reviewed the resident's note and discussed the case with the resident. I agree with the resident's findings and plan as documented. SUBJECTIVE: Patient seen and examined in the ICU. S/P colonoscopy with clipping of bleeding diverticula. More awake and oriented today. Denies CP or SOB. Mild abdominal tenderness. Intake & Output 12/03/16 12/04/16 12/05/16 12/06/16 23:59 23:59 23:59 23:59 Intake Total 3097.5 2517 3065 995 Output Total 1350 910 100 Balance 1747.5 1607 2965 995 Weight 163 lb 5.8 oz 165 lb 6 oz 159 lb 4 oz 164 lb Last Vital Signs Temp Pulse Resp BP Pulse Ox 98.8 F 87 18 127/65 100 12/06/16 06:00 12/06/16 06:00 12/06/16 06:00 12/06/16 06:00 12/05/16 20:17 Active Medications Chlorhexidine Gluconate (Hibiclens For Decolonization -) 1 applic TP HS [facility] Last Admin: 12/05/16 21:48 Dose: 1 applic Metronidazole (Flagyl 500mg Premixed Ivpb -) 100 mls @ 100 mls/hr IVPB Q8H-IV [facility] Last Admin: 12/06/16 01:53 Dose: 100 mls/hr Potassium Chloride/Sodium Chloride (Ns+20 Meq Kcl -) 1,000 mls @ 75 mls/hr IV ASDIR STEFANI Last Admin: 12/05/16 18:00 Dose: 75 mls/hr Pantoprazole Sodium 80 mg/ (Sodium Chloride) 100 mls @ 10 mls/hr IVPB Q10H ST[facility] PRN Reason: 8 MG/HR Last Admin: 12/06/16 06:16 Dose: 10 mls/hr Ceftriaxone Sodium (Rocephin 1gm Ivpb (Pre-Docked)) 50 mls @ 100 mls/hr IVPB DAILY [facility] Morphine Sulfate (Morphine Injection -) 2 mg IVPUSH Q3H PRN PRN Reason: PAIN Mupirocin (Bactroban Ointment (For Decolonization) -) 1 applic NS BID [facility] Stop: 12/10/16 21:59 Last Admin: 12/05/16 21:48 Dose: 1 applic Constitutional: Yes: More awake and alert, less confused Eyes: Yes: WNL HENT: Yes: WNL Neck: Yes: WNL Cardiovascular: Yes: WNL Respiratory: Yes: clear Gastrointestinal: Yes: WNL Renal/: Yes: WNL Breast(s): Yes: WNL Musculoskeletal: Yes: WNL Extremities: Yes: WNL Edema: No Peripheral Pulses WNL: Yes Integumentary: Yes: WNL Laboratory Results - last 24 hr 12/02/16 12/05/16 12/05/16 11:25 05:15 14:30 WBC 12.9 H RBC 2.73 L Hgb 7.7 L D Hct 23.0 L MCV 84.5 MCH 28.3 MCHC 33.4 RDW 15.8 Plt Count 96 L MPV 9.3 Sodium Potassium Chloride Carbon Dioxide Anion Gap BUN Creatinine Random Glucose Calcium Phosphorus Magnesium Blood Type O POSITIVE O POSITIVE Antibody Screen Negative Crossmatch See Detail See Detail 12/05/16 12/06/16 12/06/16 22:00 05:20 05:20 WBC 13.2 H 12.3 H RBC 3.02 L 2.70 L Hgb 8.7 L D 7.8 L D Hct 25.9 L 23.0 L MCV 85.7 85.1 MCH 28.8 29.0 MCHC 33.7 34.1 RDW 15.7 15.7 Plt Count 94 L 99 L MPV 9.7 9.8 Sodium 145 Potassium 3.5 Chloride 111 H Carbon Dioxide 27 Anion Gap 7 L BUN 8 Creatinine 0.8 Random Glucose 93 Calcium 7.3 L Phosphorus 1.6 L Magnesium 2.1 D Blood Type Antibody Screen Crossmatch Problem List - Problems (1) Lower GI bleed Code(s): K92.2 - GASTROINTESTINAL HEMORRHAGE, UNSPECIFIED (2) Hypertension Code(s): I10 - ESSENTIAL (PRIMARY) HYPERTENSION (3) Hypothyroid Code(s): E03.9 - HYPOTHYROIDISM, UNSPECIFIED (4) Hyperlipemia Code(s): E78.5 - HYPERLIPIDEMIA, UNSPECIFIED (5) BPH (benign prostatic hyperplasia) Code(s): N40.0 - BENIGN PROSTATIC HYPERPLASIA WITHOUT LOWER URINRY TRACT SYMP Assessment/Plan S/P Colonoscopy with clipping of bleeding diverticula GI bleed S/P emergency embolization of the ilial branch of the superior mesenteric artery Recurrent bleeding HTN HLD Hypothyroid BPH -PO when OK with GI -IVF -PPI -O2 as needed -Normal transfusion thresholds -Follow H&H -Need to reassess ABX -> would prefer to monitor off coverage -4W/4S monitoring Dr Dominguez Critical care time spent in reviewing chart, evaluating patient and formulating plan - 40 minutes.
[2016-12-06] MEDS ORDERED: CEFTRIAXONE 50 ML IVPB SCH (10:00)
--- NOTE | 2016-12-06 10:13 | PN ---
Physical Exam: SUBJECTIVE: Patient seen and examined by bedside. States that he feels "so-so". Denies any chest pain, SOB, abdominal pain, bleeding per rectum. s/p colonoscopy showing diverticular bleed. GI was able to clip the bleeding source. S/p 1 units of pRBCs from last night. OBJECTIVE: Vital Signs Period Temp Pulse Resp BP Sys/Brower Pulse Ox Last 24 Hr 98 F-99.0 F 83-98 15-23 106-151/42-91 98-100 GENERAL: The patient is awake, alert, and fully oriented, in no acute distress. HEAD: Normal with no signs of trauma. EYES: PERRL, extraocular movements intact, sclera anicteric, conjunctiva clear. No ptosis. ENT: Ears normal, nares patent, oropharynx clear without exudates, moist mucous membranes. NECK: Trachea midline, full range of motion, supple. LUNGS: Breath sounds equal, clear to auscultation bilaterally, no wheezes, no crackles, no accessory muscle use. HEART: Regular rate and rhythm, S1, S2 without murmur, rub or gallop. ABDOMEN: Soft, nontender, nondistended, normoactive bowel sounds, no guarding, no rebound, no hepatosplenomegaly, no masses. EXTREMITIES: 2+ pulses, warm, well-perfused, no edema. NEUROLOGICAL: Cranial nerves II through XII grossly intact. Normal speech, gait not observed. PSYCH: Normal mood, normal affect. SKIN: Warm, dry, normal turgor, no rashes or lesions noted Laboratory Results - last 24 hr 12/05/16 12/05/16 12/05/16 05:15 14:30 22:00 WBC 12.9 H 13.2 H RBC 2.73 L 3.02 L Hgb 7.7 L D 8.7 L D Hct 23.0 L 25.9 L MCV 84.5 85.7 MCH 28.3 28.8 MCHC 33.4 33.7 RDW 15.8 15.7 Plt Count 96 L 94 L MPV 9.3 9.7 Sodium Potassium Chloride Carbon Dioxide Anion Gap BUN Creatinine Random Glucose Calcium Phosphorus Magnesium Blood Type O POSITIVE Antibody Screen Negative Crossmatch See Detail 12/06/16 12/06/16 05:20 05:20 WBC 12.3 H RBC 2.70 L Hgb 7.8 L D Hct 23.0 L MCV 85.1 MCH 29.0 MCHC 34.1 RDW 15.7 Plt Count 99 L MPV 9.8 Sodium 145 Potassium 3.5 Chloride 111 H Carbon Dioxide 27 Anion Gap 7 L BUN 8 Creatinine 0.8 Random Glucose 93 Calcium 7.3 L Phosphorus 1.6 L Magnesium 2.1 D Blood Type Antibody Screen Crossmatch Active Medications Generic Name Dose Route Start Last Admin Trade Name Freq PRN Reason Stop Dose Admin Chlorhexidine Gluconate 1 applic 12/05/16 22:00 12/05/16 21:48 Hibiclens For Decolonization - TP 1 applic HS [facility] Administration Metronidazole 100 mls @ 100 mls/hr 12/05/16 18:00 12/06/16 01:53 Flagyl 500mg Premixed Ivpb - IVPB 100 mls/hr Q8H-IV [facility] Administration Potassium Chloride/Sodium Chloride 1,000 mls @ 75 mls/hr 12/05/16 15:01 18:00 Ns+20 Meq Kcl - IV 75 mls/hr ASDIR STEFANI Administration Pantoprazole Sodium 80 mg/ 100 mls @ 10 mls/hr 12/05/16 19:45 12/06/16 06:16 Sodium Chloride IVPB 10 mls/hr Q10H [facility] Administration 8 MG/HR Ceftriaxone Sodium 50 mls @ 100 mls/hr 12/06/16 10:00 Rocephin 1gm Ivpb (Pre-Docked) IVPB DAILY [facility] Potassium Phosphate 16 mm/ 255.3333 mls @ 62.5 mls/hr 12/06/16 10:05 Sodium Chloride IVPB 12/06/16 14:10 ONCE ONE Morphine Sulfate 2 mg 12/05/16 15:01 Morphine Injection - IVPUSH Q3H PRN PAIN Mupirocin 1 applic 12/05/16 22:00 12/05/16 21:48 Bactroban Ointment (For Decolonization) - NS 12/10/16 21:59 1 applic BID [facility] Administration ASSESSMENT/PLAN: 86 year old male pmh HTN, hypothyroid, and gastric ulcers presented with ED with bright red blood per rectum. Pt is s/p embolization of iliac branch of SMA and s/p colonoscopy with diverticular bleed. Neuro: -Alert and oriented x3, occasionally confused but has good memory Cardiology: -past medical history of hypertension (MAP 79 today) -resume PO meds -s/p 1 units pRBCs last night -hgb dropped from 8.7 to 7.8 today, repeat at noon Abdominal: -pt with acute lower gastrointestinal bleed -s/p embolization of iliac branch of SMA -s/p colonoscopy showing diverticular bleed -most recent Hb is 7.8 -trend Hgb at noon -continue to monitor hemodynamic status for hypotension -f/u with Dr. Cheek FEN: -NS+ 20meq KCL @ 75 -Advance to clear liquids Prophylaxsis: -protonix drip Dispo: -Trend CBC at noon, if normal tx to Tele (4-west or 4-south) Problem List - Problems (1) Anemia Code(s): D64.9 - ANEMIA, UNSPECIFIED Qualifiers: Anemia type: other cause Other causes of anemia: acute posthemorrhagic Qualified Code(s): D62 - Acute posthemorrhagic anemia (2) BPH (benign prostatic hyperplasia) Code(s): N40.0 - BENIGN PROSTATIC HYPERPLASIA WITHOUT LOWER URINRY TRACT SYMP (3) Hypertension Code(s): I10 - ESSENTIAL (PRIMARY) HYPERTENSION (4) Hypothyroid Code(s): E03.9 - HYPOTHYROIDISM, UNSPECIFIED (5) Lower GI bleed Code(s): K92.2 - GASTROINTESTINAL HEMORRHAGE, UNSPECIFIED Visit type - Emergency Visit Emergency Visit: No - New Patient This patient is new to me today: Yes Date on this admission: 12/06/16 - Critical Care Critical Care patient: Yes Total Critical Care Time (in minutes): 20
[2016-12-06] MEDS: MUPIROCIN 2% TOPICAL OINTMENT FOR DECOLONIZATION NS SCH (10:53)
[2016-12-06] MEDS ORDERED: POTASSIUM PHOSPHATE 16 MM in SODIUM CHLORIDE 250 ML IVPB ONE (11:00)
--- NOTE | 2016-12-06 11:37 | PN ---
Progress Note (short form) - Note Progress Note: CC: GIB S: no cp, sob, palps, dizziness. Current Medications Generic Name Dose Route Start Last Admin Trade Name Freq PRN Reason Stop Dose Admin Chlorhexidine Gluconate 1 applic 12/05/16 22:00 12/05/16 21:48 Hibiclens For Decolonization - TP 1 applic HS [facility] Administration Metronidazole 100 mls @ 100 mls/hr 12/05/16 18:00 12/06/16 01:53 Flagyl 500mg Premixed Ivpb - IVPB 100 mls/hr Q8H-IV [facility] Administration Potassium Chloride/Sodium Chloride 1,000 mls @ 75 mls/hr 12/05/16 15:01 18:00 Ns+20 Meq Kcl - IV 75 mls/hr ASDIR STEFANI Administration Pantoprazole Sodium 80 mg/ 100 mls @ 10 mls/hr 12/05/16 19:45 12/06/16 06:16 Sodium Chloride IVPB 10 mls/hr Q10H [facility] Administration 8 MG/HR Ceftriaxone Sodium 50 mls @ 100 mls/hr 12/06/16 10:00 12/06/16 10:50 Rocephin 1gm Ivpb (Pre-Docked) IVPB 100 mls/hr DAILY [facility] Administration Potassium Phosphate 16 mm/ 255.3333 mls @ 62.5 mls/hr 12/06/16 11:00 Sodium Chloride IVPB 12/06/16 15:05 ONCE ONE Morphine Sulfate 2 mg 12/05/16 15:01 Morphine Injection - IVPUSH Q3H PRN PAIN Mupirocin 1 applic 12/05/16 22:00 12/06/16 10:53 Bactroban Ointment (For Decolonization) - NS 12/10/16 21:59 1 applic BID [facility] Administration Vital Signs Period Temp Pulse Resp BP Sys/Brower Pulse Ox Last 24 Hr 98 F-99.0 F 83-98 15-23 106-151/42-91 98-100 nad, calm jvd flat, neck supple ctab, nl effort rrr with occasional ectopy, nl s1, s2 no mrg + bs soft nt nd ext without e/c/c alert, oriented no jaundice, diaphoresis CBC, BMP 12/06/16 05:20 12/06/16 05:20 tele: sr with occ pacs, pvcs, no vt EKG 12/02: 11 am: SR with pac's (atrial bigeminy). leftward axis, non-specific t wave flattening. EKG 12/02 22:56: sr with pac's, pvc's and subsequent ventricular escape. ? lead reversal. t waves no longer flattened in lateral leads. CXR: no acute pulmonary pathology. 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 HTN - Initially hypertensive and placed on nitroglycerin drip, now weaned off. BP reasonably controlled off anti-hypertensives. atrial/ventricular ectopy - Continues to need ongoing lyte repletion. echo pending. HLD - not on statin as outpatient b/c of h/o myositis. GIB: - s/p embolization. foc showed diverticular bleed. ongoing mgm't per GI/surgery
[2016-12-06 12:07] LABS: MCH 28.5 pg (25.7-33.7); MCHC 33.5 g/dl (32.0-35.9); PLATELET COUNT 101 K/MM3 (134-434); RDW 15.4 % (11.9-15.9); WHITE BLOOD COUNT 11.5 K/mm3 (4.0-10.0)
[2016-12-06] MEDS: SODIUM CHLORIDE 0.9%/KCL 1,000 ML IV SCH ×3 (12:32→18:52)
--- NOTE | 2016-12-06 15:04 | PN ---
Progress Note, Physician Chief Complaint: Mr Lan says he is doing well. No cp, sob, n/v. - Current Medication List Current Medications: Active Medications Chlorhexidine Gluconate (Hibiclens For Decolonization -) 1 applic TP HS [facility] Last Admin: 12/05/16 21:48 Dose: 1 applic Metronidazole (Flagyl 500mg Premixed Ivpb -) 100 mls @ 100 mls/hr IVPB Q8H-IV [facility] Last Admin: 12/06/16 11:41 Dose: 100 mls/hr Potassium Chloride/Sodium Chloride (Ns+20 Meq Kcl -) 1,000 mls @ 75 mls/hr IV ASDIR STEFANI Last Admin: 12/06/16 12:32 Dose: 75 mls/hr Pantoprazole Sodium 80 mg/ (Sodium Chloride) 100 mls @ 10 mls/hr IVPB Q10H [facility] PRN Reason: 8 MG/HR Last Admin: 12/06/16 06:16 Dose: 10 mls/hr Ceftriaxone Sodium (Rocephin 1gm Ivpb (Pre-Docked)) 50 mls @ 100 mls/hr IVPB DAILY [facility] Last Admin: 12/06/16 10:50 Dose: 100 mls/hr Potassium Phosphate 16 mm/ (Sodium Chloride) 255.3333 mls @ 62.5 mls/hr IVPB ONCE ONE Stop: 12/06/16 15:05 Last Admin: 12/06/16 12:06 Dose: 62.5 mls/hr Morphine Sulfate (Morphine Injection -) 2 mg IVPUSH Q3H PRN PRN Reason: PAIN Mupirocin (Bactroban Ointment (For Decolonization) -) 1 applic NS BID [facility] Stop: 12/10/16 21:59 Last Admin: 12/06/16 10:53 Dose: 1 applic - Objective Vital Signs: Vital Signs Temperature 37.1 C 12/06/16 14:00 Pulse Rate 80 12/06/16 14:00 Respiratory Rate 18 12/06/16 14:00 Blood Pressure 115/61 12/06/16 14:00 O2 Sat by Pulse Oximetry (%) 98 12/06/16 09:00 Constitutional: Yes: Well Nourished, No Distress, Calm Cardiovascular: Yes: Regular Rate and Rhythm. No: Gallop, Murmur, Rub Respiratory: Yes: Regular, CTA Bilaterally. No: Rales, Rhonchi, Wheezes Gastrointestinal: Yes: Normal Bowel Sounds, Soft. No: Distention, Tenderness Extremities: Yes: WNL Edema: No Labs: CBC, BMP 12/06/16 11:56 12/06/16 05:20 INR, PTT INR 1.22 (0.82-1.09) H 12/03/16 05:35 Fibrinogen 211.0 mg/dL (238-498) L 12/02/16 23:55 Problem List - Problems (1) Lower GI bleed Code(s): K92.2 - GASTROINTESTINAL HEMORRHAGE, UNSPECIFIED (2) Anemia Code(s): D64.9 - ANEMIA, UNSPECIFIED Qualifiers: Anemia type: other cause Other causes of anemia: acute posthemorrhagic Qualified Code(s): D62 - Acute posthemorrhagic anemia (3) Hypertension Code(s): I10 - ESSENTIAL (PRIMARY) HYPERTENSION (4) BPH (benign prostatic hyperplasia) Code(s): N40.0 - BENIGN PROSTATIC HYPERPLASIA WITHOUT LOWER URINRY TRACT SYMP (5) Hypothyroid Code(s): E03.9 - HYPOTHYROIDISM, UNSPECIFIED Assessment/Plan (1) Lower GI bleed Assessment/Plan: -s/p 5 units -s/p embolization -also with colonoscopy, found source of bleeding and clipped -monitor for further bleeding Code(s): K92.2 - GASTROINTESTINAL HEMORRHAGE, UNSPECIFIED (2) Anemia Assessment/Plan: -continue to monitor Code(s): D64.9 - ANEMIA, UNSPECIFIED Qualifiers: Anemia type: other cause Other causes of anemia: acute posthemorrhagic Qualified Code(s): D62 - Acute posthemorrhagic anemia (3) Hypertension Assessment/Plan: -NTG gtt stopped -monitor Code(s): I10 - ESSENTIAL (PRIMARY) HYPERTENSION (4) BPH (benign prostatic hyperplasia) Assessment/Plan: -restart flomax tomorrow Code(s): N40.0 - BENIGN PROSTATIC HYPERPLASIA WITHOUT LOWER URINRY TRACT SYMP (5) Hypothyroid Assessment/Plan: -restart synthroid tomorrow Code(s): E03.9 - HYPOTHYROIDISM, UNSPECIFIED
[2016-12-06] MEDS ORDERED: morphine CARPU-JECT 4 MG/1 ML DISP.SYRIN IVPUSH PRN (17:59)
[2016-12-06] MEDS ORDERED: CHLORHEXIDINE GLUCONATE 4% CLEANSER FOR DECOLONIZATION TP SCH (22:00)
[2016-12-06] MEDS ORDERED: MUPIROCIN 2% TOPICAL OINTMENT FOR DECOLONIZATION NS SCH (22:00)
[2016-12-07] MEDS: METRONIDAZOLE 500 MG PREMIXED 100 ML IVPB SCH ×3 (02:19→18:26)
[2016-12-07] MEDS: PANTOPRAZOLE SODIUM 80 MG in SODIUM CHLORIDE 100 ML IVPB SCH ×2 (04:00→12:30)
--- NOTE | 2016-12-07 05:13 | HOSP ---
Subjective - Review of Symptoms Events since last encounter: Nsg reports pt pulled out IVs and climbed out of bed related to pt's diagnosis of dementia. Pt poses a risk of injury to self. Vest restraint ordered for pt safety. Physical Examination Vital Signs: Vital Signs Temperature 99.6 F 12/07/16 02:00 Pulse Rate 95 H 12/07/16 02:00 Respiratory Rate 18 12/07/16 02:00 Blood Pressure 145/73 12/07/16 02:00 O2 Sat by Pulse Oximetry (%) 96 12/06/16 21:00 Labs: CBC, BMP 12/06/16 11:56 12/06/16 05:20 Visit type - Emergency Visit Emergency Visit: Yes ED Registration Date: 12/02/16 Care time: The patient presented to the Emergency Department on the above date and was hospitalized for further evaluation of their emergent condition. - New Patient This patient is new to me today: Yes Date on this admission: 12/07/16 - Critical Care Critical Care patient: Yes Total Critical Care Time (in minutes): 2
[2016-12-07 06:47] LABS: BASOPHIL 0.6 % (0-2.0); EOSINOPHIL 2.8 % (0-4.5); MCH 29.8 pg (25.7-33.7); MCHC 34.7 g/dl (32.0-35.9); MEAN CELL VOLUME 85.7 fl (80-96); MEAN PLT VOLUME 9.6 fl (7.5-11.1); NEUTROPHILS 77.2 % (42.8-82.8); PLATELET COUNT 147 K/MM3 (134-434); RDW 15.5 % (11.9-15.9); WHITE BLOOD COUNT 11.1 K/mm3 (4.0-10.0)
[2016-12-07 07:03] LABS: ANION GAP 9 (8-16); CALCIUM 7.7 mg/dL (8.5-10.1); CO2 28 mmol/L (21-32); CREATININE 0.8 mg/dL (0.7-1.3); GLUCOSE,RANDOM 90 mg/dL (74-106); PHOSPHOROUS 1.6 mg/dL (2.5-4.9)
--- NOTE | 2016-12-07 10:27 | PN ---
Progress Note (short form) - Note Progress Note: CC: GIB S: no cp, sob, palps, dizziness. Current Medications Generic Name Dose Route Start Last Admin Trade Name Freq PRN Reason Stop Dose Admin Ceftriaxone Sodium 50 mls @ 100 mls/hr 12/07/16 10:00 Rocephin 1gm Ivpb (Pre-Docked) IVPB DAILY STEFANI Metronidazole 100 mls @ 100 mls/hr 12/06/16 18:00 12/07/16 09:04 Flagyl 500mg Premixed Ivpb - IVPB 100 mls/hr Q8H-IV STEFANI Administration Potassium Chloride/Sodium Chloride 1,000 mls @ 75 mls/hr 12/06/16 17:59 18:52 Ns+20 Meq Kcl - IV Not Given ASDIR STEFANI Pantoprazole Sodium 80 mg/ 100 mls @ 10 mls/hr 12/06/16 18:30 12/07/16 04:00 Sodium Chloride IVPB 10 mls/hr Q10H STEFANI Administration 8 MG/HR Potassium Phosphate 16 mm/ 255.3333 mls @ 62.5 mls/hr 12/07/16 10:14 Sodium Chloride IVPB 12/07/16 14:19 ONCE ONE Morphine Sulfate 2 mg 12/06/16 17:59 Morphine Injection - IVPUSH Q3H PRN PAIN Potassium Phos/Sodium Phos 1 packet 12/07/16 14:00 Phos-Nak Packet - PO TID STEFANI Vital Signs Period Temp Pulse Resp BP Sys/Brower Pulse Ox Last 24 Hr 98.4 F-99.6 F 78-95 18-20 112-159/48-74 96-96 nad, calm jvd flat, neck supple ctab, nl effort rrr with occasional ectopy, nl s1, s2 no mrg + bs soft nt nd ext without e/c/c alert, oriented no jaundice, diaphoresis CBC, BMP 12/07/16 05:15 12/07/16 05:15 tele: sr with occ pacs, pvcs, no vt EKG 12/02: 11 am: SR with pac's (atrial bigeminy). leftward axis, non-specific t wave flattening. EKG 12/02 22:56: sr with pac's, pvc's and subsequent ventricular escape. ? lead reversal. t waves no longer flattened in lateral leads. CXR: no acute pulmonary pathology. 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 HTN - Initially hypertensive and placed on nitroglycerin drip, now weaned off. Monitor bp for now, if hgb stable and bp remains elevated will likely need htn med. atrial/ventricular ectopy - Continues to need ongoing lyte repletion. echo pending. HLD - not on statin as outpatient b/c of h/o myositis. GIB: - s/p embolization. foc showed diverticular bleed, clipped. hgb stable today after prbcs. ongoing mgm't per GI/surgery
--- NOTE | 2016-12-07 10:56 | PN ---
Progress Note, Physician Chief Complaint: Mr Lan says he is doing well. No cp, sob, n/v. Says he is having back pain. - Current Medication List Current Medications: Active Medications Ceftriaxone Sodium (Rocephin 1gm Ivpb (Pre-Docked)) 50 mls @ 100 mls/hr IVPB DAILY STEFANI Metronidazole (Flagyl 500mg Premixed Ivpb -) 100 mls @ 100 mls/hr IVPB Q8H-IV STEFANI Last Admin: 12/07/16 09:04 Dose: 100 mls/hr Potassium Chloride/Sodium Chloride (Ns+20 Meq Kcl -) 1,000 mls @ 75 mls/hr IV ASDIR STEFANI Last Admin: 12/06/16 18:52 Dose: Not Given Pantoprazole Sodium 80 mg/ (Sodium Chloride) 100 mls @ 10 mls/hr IVPB Q10H STEFANI PRN Reason: 8 MG/HR Last Admin: 12/07/16 04:00 Dose: 10 mls/hr Potassium Phosphate 16 mm/ (Sodium Chloride) 255.3333 mls @ 62.5 mls/hr IVPB ONCE ONE Stop: 12/07/16 14:19 Morphine Sulfate (Morphine Injection -) 2 mg IVPUSH Q3H PRN PRN Reason: PAIN Potassium Phos/Sodium Phos (Phos-Nak Packet -) 1 packet PO TID STEFANI - Objective Vital Signs: Vital Signs Temperature 37.3 C 12/07/16 06:00 Pulse Rate 93 H 12/07/16 06:00 Respiratory Rate 20 12/07/16 06:00 Blood Pressure 159/69 12/07/16 06:00 O2 Sat by Pulse Oximetry (%) 96 12/06/16 21:00 Constitutional: Yes: Well Nourished, No Distress, Calm Cardiovascular: Yes: Regular Rate and Rhythm. No: Gallop, Murmur, Rub Respiratory: Yes: Regular, CTA Bilaterally. No: Rales, Rhonchi, Wheezes Gastrointestinal: Yes: Normal Bowel Sounds, Soft. No: Distention, Tenderness Extremities: Yes: WNL Edema: No Labs: CBC, BMP 12/07/16 05:15 12/07/16 05:15 INR, PTT INR 1.22 (0.82-1.09) H 12/03/16 05:35 Fibrinogen 211.0 mg/dL (238-498) L 12/02/16 23:55 Problem List - Problems (1) Lower GI bleed Code(s): K92.2 - GASTROINTESTINAL HEMORRHAGE, UNSPECIFIED (2) Anemia Code(s): D64.9 - ANEMIA, UNSPECIFIED Qualifiers: Anemia type: other cause Other causes of anemia: acute posthemorrhagic Qualified Code(s): D62 - Acute posthemorrhagic anemia (3) Hypertension Code(s): I10 - ESSENTIAL (PRIMARY) HYPERTENSION (4) BPH (benign prostatic hyperplasia) Code(s): N40.0 - BENIGN PROSTATIC HYPERPLASIA WITHOUT LOWER URINRY TRACT SYMP (5) Hypothyroid Code(s): E03.9 - HYPOTHYROIDISM, UNSPECIFIED (6) Hypophosphatemia Code(s): E83.39 - OTHER DISORDERS OF PHOSPHORUS METABOLISM (7) Hypokalemia Code(s): E87.6 - HYPOKALEMIA Assessment/Plan (1) Lower GI bleed Assessment/Plan: -GI following -s/p embolization and colonoscopy -GI following, defer if needs further intervention Code(s): K92.2 - GASTROINTESTINAL HEMORRHAGE, UNSPECIFIED (2) Anemia Assessment/Plan: -received another 2 units overnight -now at 7 units pRBCs -continue to monitor Code(s): D64.9 - ANEMIA, UNSPECIFIED Qualifiers: Anemia type: other cause Other causes of anemia: acute posthemorrhagic Qualified Code(s): D62 - Acute posthemorrhagic anemia (3) Hypertension Assessment/Plan: -NTG gtt stopped -monitor Code(s): I10 - ESSENTIAL (PRIMARY) HYPERTENSION (4) BPH (benign prostatic hyperplasia) Assessment/Plan: -restart flomax today Code(s): N40.0 - BENIGN PROSTATIC HYPERPLASIA WITHOUT LOWER URINRY TRACT SYMP (5) Hypothyroid Assessment/Plan: -restart synthroid today Code(s): E03.9 - HYPOTHYROIDISM, UNSPECIFIED (6) FEN -replace potassium and phosphorus -continue liquid diet without sodium/potassium restriction
[2016-12-07] MEDS: CEFTRIAXONE 50 ML IVPB SCH (11:12)
[2016-12-07] MEDS ORDERED: POTASSIUM PHOSPHATE 16 MM in SODIUM CHLORIDE 250 ML IVPB ONE (12:00)
--- NOTE | 2016-12-07 13:00 | PN ---
Progress Note (short form) - Note Progress Note: Patient seen and examined in the ICU. No occult bleeding noted overnight. Reports LBP. Awake and oriented today. Denies CP or SOB. Denies abdominal tenderness. Intake & Output 12/04/16 12/05/16 12/06/16 12/07/16 23:59 23:59 23:59 23:59 Intake Total 2517 3065 3110 860 Output Total 910 100 251 Balance 1607 2965 2859 860 Weight 165 lb 6 oz 159 lb 4 oz 164 lb 162 lb 14.746 oz Last Vital Signs Temp Pulse Resp BP Pulse Ox 99.6 F 80 20 144/70 96 12/07/16 10:00 12/07/16 10:00 12/07/16 10:00 12/07/16 10:00 12/06/16 21:00 Active Medications Hydrochlorothiazide (Hctz -) 12.5 mg PO DAILY [facility] Ceftriaxone Sodium (Rocephin 1gm Ivpb (Pre-Docked)) 50 mls @ 100 mls/hr IVPB DAILY [facility] Last Admin: 12/07/16 11:12 Dose: 100 mls/hr Metronidazole (Flagyl 500mg Premixed Ivpb -) 100 mls @ 100 mls/hr IVPB Q8H-IV STEFANI Last Admin: 12/07/16 09:04 Dose: 100 mls/hr Potassium Chloride/Sodium Chloride (Ns+20 Meq Kcl -) 1,000 mls @ 75 mls/hr IV ASDIR [facility] Last Admin: 12/06/16 18:52 Dose: Not Given Pantoprazole Sodium 80 mg/ (Sodium Chloride) 100 mls @ 10 mls/hr IVPB Q10H STEFANI PRN Reason: 8 MG/HR Last Admin: 12/07/16 12:30 Dose: 10 mls/hr Potassium Phosphate 16 mm/ (Sodium Chloride) 255.3333 mls @ 62.5 mls/hr IVPB ONCE ONE Stop: 12/07/16 16:05 Levothyroxine Sodium (Synthroid -) 100 mcg PO DAILY@0700 [facility] Morphine Sulfate (Morphine Injection -) 2 mg IVPUSH Q3H PRN PRN Reason: PAIN Potassium Phos/Sodium Phos (Phos-Nak Packet -) 1 packet PO TID [facility] Tamsulosin HCl (Flomax -) 0.4 mg PO DAILY@0830 STEFANI Valsartan (Diovan -) 80 mg PO DAILY STEFANI Constitutional: Yes: More awake and alert Eyes: Yes: WNL HENT: Yes: WNL Neck: Yes: WNL Cardiovascular: Yes: WNL Respiratory: Yes: clear Gastrointestinal: Yes: WNL Renal/: Yes: WNL Breast(s): Yes: WNL Musculoskeletal: Yes: WNL Extremities: Yes: WNL Edema: No Peripheral Pulses WNL: Yes Integumentary: Yes: WNL Laboratory Results - last 24 hr 12/02/16 12/05/16 12/07/16 11:25 05:15 05:15 WBC 11.1 H RBC 3.18 L Hgb 9.5 L D Hct 27.3 L D MCV 85.7 MCH 29.8 MCHC 34.7 RDW 15.5 Plt Count 147 D MPV 9.6 Neutrophils % 77.2 Lymphocytes % 11.7 Monocytes % 7.7 Eosinophils % 2.8 D Basophils % 0.6 Sodium Potassium Chloride Carbon Dioxide Anion Gap BUN Creatinine Random Glucose Calcium Phosphorus Magnesium Blood Type O POSITIVE O POSITIVE Antibody Screen Negative Crossmatch See Detail See Detail 12/07/16 05:15 WBC RBC Hgb Hct MCV MCH MCHC RDW Plt Count MPV Neutrophils % Lymphocytes % Monocytes % Eosinophils % Basophils % Sodium 142 Potassium 3.2 L Chloride 105 Carbon Dioxide 28 Anion Gap 9 BUN 6 L D Creatinine 0.8 Random Glucose 90 Calcium 7.7 L Phosphorus 1.6 L Magnesium 2.0 Blood Type Antibody Screen Crossmatch Problem List - Problems (1) Lower GI bleed Code(s): K92.2 - GASTROINTESTINAL HEMORRHAGE, UNSPECIFIED (2) Hypertension Code(s): I10 - ESSENTIAL (PRIMARY) HYPERTENSION (3) Hypothyroid Code(s): E03.9 - HYPOTHYROIDISM, UNSPECIFIED (4) Hyperlipemia Code(s): E78.5 - HYPERLIPIDEMIA, UNSPECIFIED (5) BPH (benign prostatic hyperplasia) Code(s): N40.0 - BENIGN PROSTATIC HYPERPLASIA WITHOUT LOWER URINRY TRACT SYMP Assessment/Plan S/P Colonoscopy with clipping of bleeding diverticula GI bleed S/P emergency embolization of the ilial branch of the superior mesenteric artery Recurrent bleeding HTN HLD Hypothyroid BPH -Clears -PPI -O2 as needed -Normal transfusion thresholds -Follow H&H -Need to reassess ABX -> would prefer to monitor off coverage Dr Dominguez
[2016-12-07] MEDS: NAPH,MB-DB/K PH,MBDB POWDER PACKET PO SCH ×2 (14:20→21:27)
[2016-12-07] MEDS: SODIUM CHLORIDE 0.9%/KCL 1,000 ML IV SCH (18:27)
[2016-12-08] MEDS: METRONIDAZOLE 500 MG PREMIXED 100 ML IVPB SCH ×3 (01:07→18:27)
[2016-12-08] MEDS: SODIUM CHLORIDE 0.9%/KCL 1,000 ML IV SCH ×2 (02:23→18:00)
[2016-12-08] MEDS: NAPH,MB-DB/K PH,MBDB POWDER PACKET PO SCH ×3 (06:10→21:04)
[2016-12-08] MEDS: LEVOTHYROXINE NA 100 MCG TABLET (FP) PO SCH (06:10)
[2016-12-08] MEDS: HYDROCHLOROTHIAZIDE 12.5 MG CAPSULE (FP) PO SCH (09:17)
[2016-12-08] MEDS: RANITIDINE HCL 150 MG/10 ML UNIT-DOSE CUP PO SCH (09:17)
[2016-12-08] MEDS: TAMSULOSIN HCL 0.4 MG CAP.ER.24H (FP) PO SCH (09:17)
[2016-12-08] MEDS: CEFTRIAXONE 50 ML IVPB SCH (09:18)
[2016-12-08] MEDS: VALSARTAN 80 MG TABLET (UD) PO SCH (09:18)
[2016-12-08 09:30] LABS: BASOPHIL 0.6 % (0-2.0); EOSINOPHIL 2.5 % (0-4.5); MCH 29.1 pg (25.7-33.7); MCHC 33.8 g/dl (32.0-35.9); MEAN CELL VOLUME 86.2 fl (80-96); MEAN PLT VOLUME 8.7 fl (7.5-11.1); NEUTROPHILS 77.4 % (42.8-82.8); PLATELET COUNT 171 K/MM3 (134-434); RDW 15.9 % (11.9-15.9); WHITE BLOOD COUNT 10.1 K/mm3 (4.0-10.0)
[2016-12-08] MEDS ORDERED: PATIENT'S OWN MEDICATION (NON-FORMULARY) (Valsartan/Hydrochlorothiazide [Valsartan-Hctz 80 PO SCH (10:00)
[2016-12-08 10:06] LABS: ANION GAP 7 (8-16); CALCIUM 7.7 mg/dL (8.5-10.1); CO2 28 mmol/L (21-32); GLUCOSE,RANDOM 138 mg/dL (74-106); MAGNESIUM 1.9 mg/dL (1.8-2.4)
[2016-12-08 10:07] LABS: CREATININE 0.9 mg/dL (0.7-1.3); PHOSPHOROUS 2.2 mg/dL (2.5-4.9)
--- NOTE | 2016-12-08 10:56 | PN ---
Progress Note (short form) - Note Progress Note: CC: GIB S: no cp, sob, palps, dizziness. Current Medications Generic Name Dose Route Start Last Admin Trade Name Freq PRN Reason Stop Dose Admin Hydrochlorothiazide 12.5 mg 12/08/16 10:00 12/08/16 09:17 Hctz - PO 12.5 mg DAILY STEFANI Administration Ceftriaxone Sodium 50 mls @ 100 mls/hr 12/07/16 10:00 12/08/16 09:18 Rocephin 1gm Ivpb (Pre-Docked) IVPB 100 mls/hr DAILY STEFANI Administration Metronidazole 100 mls @ 100 mls/hr 12/06/16 18:00 12/08/16 09:18 Flagyl 500mg Premixed Ivpb - IVPB 100 mls/hr Q8H-IV STEFANI Administration Potassium Chloride/Sodium Chloride 1,000 mls @ 75 mls/hr 12/06/16 17:59 02:23 Ns+20 Meq Kcl - IV 75 mls/hr ASDIR STEFANI Administration Levothyroxine Sodium 100 mcg 12/08/16 07:00 12/08/16 06:10 Synthroid - PO 100 mcg DAILY@0700 STEFANI Administration Morphine Sulfate 2 mg 12/06/16 17:59 Morphine Injection - IVPUSH Q3H PRN PAIN Potassium Phos/Sodium Phos 1 packet 12/07/16 14:00 12/08/16 06:10 Phos-Nak Packet - PO 1 packet TID STEFANI Administration Ranitidine HCl 150 mg 12/08/16 10:00 12/08/16 09:17 Zantac Oral Solution - PO 150 mg DAILY STEFANI Administration Tamsulosin HCl 0.4 mg 12/08/16 08:30 12/08/16 09:17 Flomax - PO 0.4 mg DAILY@0830 STEFANI Administration Valsartan 80 mg 12/08/16 10:00 12/08/16 09:18 Diovan - PO 80 mg DAILY STEFANI Administration Vital Signs Period Temp Pulse Resp BP Sys/Brower Pulse Ox Last 24 Hr 97.7 F-99.2 F 83-989 14-20 131-166/57-94 95-97 nad, calm jvd flat, neck supple ctab, nl effort rrr with occasional ectopy, nl s1, s2 no mrg + bs soft nt nd ext without e/c/c alert, oriented no jaundice, diaphoresis CBC, BMP 12/08/16 09:05 12/08/16 09:05 tele: sr with occ pacs, pvcs, no vt EKG 12/02: 11 am: SR with pac's (atrial bigeminy). leftward axis, non-specific t wave flattening. EKG 12/02 22:56: sr with pac's, pvc's and subsequent ventricular escape. ? lead reversal. t waves no longer flattened in lateral leads. CXR: no acute pulmonary pathology. 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 HTN - Home meds resumed, monitor. atrial/ventricular ectopy - Continues to need ongoing lyte repletion. echo ordered. HLD - not on statin as outpatient b/c of h/o myositis. GIB: - s/p embolization. foc showed diverticular bleed, clipped. hgb stable today after prbcs. ongoing mgm't per GI/surgery
--- NOTE | 2016-12-08 12:06 | PN ---
Progress Note, Physician Chief Complaint: Mr Lan says he does not feel well but cannot tell me why. Denies chest pain, shortness of breath, nausea/vomiting, or any other concern. - Current Medication List Current Medications: Active Medications Hydrochlorothiazide (Hctz -) 12.5 mg PO DAILY [facility] Last Admin: 12/08/16 09:17 Dose: 12.5 mg Ceftriaxone Sodium (Rocephin 1gm Ivpb (Pre-Docked)) 50 mls @ 100 mls/hr IVPB DAILY [facility] Last Admin: 12/08/16 09:18 Dose: 100 mls/hr Metronidazole (Flagyl 500mg Premixed Ivpb -) 100 mls @ 100 mls/hr IVPB Q8H-IV [facility] Last Admin: 12/08/16 09:18 Dose: 100 mls/hr Potassium Chloride/Sodium Chloride (Ns+20 Meq Kcl -) 1,000 mls @ 75 mls/hr IV ASDIR [facility] Last Admin: 12/08/16 02:23 Dose: 75 mls/hr Levothyroxine Sodium (Synthroid -) 100 mcg PO DAILY@0700 [facility] Last Admin: 12/08/16 06:10 Dose: 100 mcg Morphine Sulfate (Morphine Injection -) 2 mg IVPUSH Q3H PRN PRN Reason: PAIN Potassium Phos/Sodium Phos (Phos-Nak Packet -) 1 packet PO TID [facility] Last Admin: 12/08/16 06:10 Dose: 1 packet Ranitidine HCl (Zantac Oral Solution -) 150 mg PO DAILY [facility] Last Admin: 12/08/16 09:17 Dose: 150 mg Tamsulosin HCl (Flomax -) 0.4 mg PO DAILY@0830 [facility] Last Admin: 12/08/16 09:17 Dose: 0.4 mg Valsartan (Diovan -) 80 mg PO DAILY [facility] Last Admin: 12/08/16 09:18 Dose: 80 mg - Objective Vital Signs: Vital Signs Temperature 36.8 C 12/08/16 08:00 Pulse Rate 96 H 12/08/16 08:00 Respiratory Rate 14 12/08/16 08:00 Blood Pressure 156/94 12/08/16 08:00 O2 Sat by Pulse Oximetry (%) 95 12/08/16 09:00 Constitutional: Yes: Well Nourished, No Distress, Calm Cardiovascular: Yes: Regular Rate and Rhythm. No: Gallop, Murmur, Rub Respiratory: Yes: Regular, CTA Bilaterally. No: Rales, Rhonchi, Wheezes Gastrointestinal: Yes: Normal Bowel Sounds, Soft. No: Distention, Tenderness Extremities: Yes: WNL Edema: No Labs: CBC, BMP 12/08/16 09:05 12/08/16 09:05 INR, PTT INR 1.22 (0.82-1.09) H 12/03/16 05:35 Fibrinogen 211.0 mg/dL (238-498) L 12/02/16 23:55 Problem List - Problems (1) Lower GI bleed Code(s): K92.2 - GASTROINTESTINAL HEMORRHAGE, UNSPECIFIED (2) Anemia Code(s): D64.9 - ANEMIA, UNSPECIFIED Qualifiers: Anemia type: other cause Other causes of anemia: acute posthemorrhagic Qualified Code(s): D62 - Acute posthemorrhagic anemia (3) Hypertension Code(s): I10 - ESSENTIAL (PRIMARY) HYPERTENSION (4) BPH (benign prostatic hyperplasia) Code(s): N40.0 - BENIGN PROSTATIC HYPERPLASIA WITHOUT LOWER URINRY TRACT SYMP (5) Hypothyroid Code(s): E03.9 - HYPOTHYROIDISM, UNSPECIFIED (6) Hypophosphatemia Code(s): E83.39 - OTHER DISORDERS OF PHOSPHORUS METABOLISM (7) Hypokalemia Code(s): E87.6 - HYPOKALEMIA Assessment/Plan (1) Lower GI bleed Assessment/Plan: -GI following -s/p embolization and colonoscopy -GI following, defer if needs further intervention -H/H stabilizing Code(s): K92.2 - GASTROINTESTINAL HEMORRHAGE, UNSPECIFIED (2) Anemia Assessment/Plan: -received 7 units pRBCs -currently stable Code(s): D64.9 - ANEMIA, UNSPECIFIED Qualifiers: Anemia type: other cause Other causes of anemia: acute posthemorrhagic Qualified Code(s): D62 - Acute posthemorrhagic anemia (3) Hypertension Assessment/Plan: -continue current regimen -controlled Code(s): I10 - ESSENTIAL (PRIMARY) HYPERTENSION (4) BPH (benign prostatic hyperplasia) Assessment/Plan: -continue flomax Code(s): N40.0 - BENIGN PROSTATIC HYPERPLASIA WITHOUT LOWER URINRY TRACT SYMP (5) Hypothyroid Assessment/Plan: -continue synthroid Code(s): E03.9 - HYPOTHYROIDISM, UNSPECIFIED (6) FEN -replace potassium and phosphorus -advance diet
[2016-12-09] MEDS: METRONIDAZOLE 500 MG PREMIXED 100 ML IVPB SCH ×3 (01:14→17:05)
[2016-12-09] MEDS: LEVOTHYROXINE NA 100 MCG TABLET (FP) PO SCH (06:10)
[2016-12-09] MEDS: NAPH,MB-DB/K PH,MBDB POWDER PACKET PO SCH ×3 (06:11→21:18)
--- NOTE | 2016-12-09 08:08 | PN ---
Progress Note, Physician Chief Complaint: GIB History of Present Illness: denies cp, sob, palpitations, leg swelling - Current Medication List Current Medications: Active Medications Hydrochlorothiazide (Hctz -) 12.5 mg PO DAILY [facility] Last Admin: 12/08/16 09:17 Dose: 12.5 mg Ceftriaxone Sodium (Rocephin 1gm Ivpb (Pre-Docked)) 50 mls @ 100 mls/hr IVPB DAILY [facility] Last Admin: 12/08/16 09:18 Dose: 100 mls/hr Metronidazole (Flagyl 500mg Premixed Ivpb -) 100 mls @ 100 mls/hr IVPB Q8H-IV [facility] Last Admin: 12/09/16 01:14 Dose: 100 mls/hr Potassium Chloride/Sodium Chloride (Ns+20 Meq Kcl -) 1,000 mls @ 75 mls/hr IV ASDIR [facility] Last Admin: 12/08/16 18:00 Dose: 75 mls/hr Levothyroxine Sodium (Synthroid -) 100 mcg PO DAILY@0700 [facility] Last Admin: 12/09/16 06:10 Dose: 100 mcg Morphine Sulfate (Morphine Injection -) 2 mg IVPUSH Q3H PRN PRN Reason: PAIN Potassium Phos/Sodium Phos (Phos-Nak Packet -) 1 packet PO TID [facility] Last Admin: 12/09/16 06:11 Dose: 1 packet Ranitidine HCl (Zantac Oral Solution -) 150 mg PO DAILY [facility] Last Admin: 12/08/16 09:17 Dose: 150 mg Tamsulosin HCl (Flomax -) 0.4 mg PO DAILY@0830 [facility] Last Admin: 12/08/16 09:17 Dose: 0.4 mg Valsartan (Diovan -) 80 mg PO DAILY [facility] Last Admin: 12/08/16 09:18 Dose: 80 mg - Objective Vital Signs: Vital Signs Temperature 99.2 F 12/09/16 05:20 Pulse Rate 86 12/09/16 05:20 Respiratory Rate 20 12/09/16 05:20 Blood Pressure 136/75 12/09/16 05:20 O2 Sat by Pulse Oximetry (%) 94 L 12/08/16 21:00 Constitutional: Yes: Well Nourished, No Distress, Calm Cardiovascular: Yes: Regular Rate and Rhythm, S1, S2. No: Gallop, Murmur Respiratory: Yes: Regular, CTA Bilaterally. No: Accessory Muscle Use, Rales, Wheezes Extremities: No: Cold Edema: No Neurological: Yes: Alert. No: Seizure Psychiatric: No: Agitated Labs: INR, PTT INR 1.22 (0.82-1.09) H 12/03/16 05:35 Fibrinogen 211.0 mg/dL (238-498) L 12/02/16 23:55 - ....Imaging EKG: Other (tele: NSR, freq APCs, brief psvt) Assessment/Plan CXR: no acute pulmonary pathology. 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 HTN - bp controlled - same meds atrial/ventricular ectopy - brief PSVT, no sx's - standing KCL ordered - no ongoing need for tele - no med changes indicated HLD - not on statin as outpatient b/c of h/o myositis. GIB: - s/p embolization. foc showed diverticular bleed, clipped. 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
[2016-12-09 08:19] LABS: BASOPHIL 0.3 % (0-2.0); EOSINOPHIL 2.6 % (0-4.5); MCH 29.6 pg (25.7-33.7); MCHC 34.1 g/dl (32.0-35.9); MEAN CELL VOLUME 86.7 fl (80-96); NEUTROPHILS 76.7 % (42.8-82.8); PLATELET COUNT 193 K/MM3 (134-434); RDW 15.8 % (11.9-15.9); WHITE BLOOD COUNT 9.7 K/mm3 (4.0-10.0)
[2016-12-09 08:35] LABS: ANION GAP 7 (8-16); CALCIUM 7.6 mg/dL (8.5-10.1); CO2 29 mmol/L (21-32); CREATININE 0.8 mg/dL (0.7-1.3); GLUCOSE,RANDOM 106 mg/dL (74-106); PHOSPHOROUS 2.5 mg/dL (2.5-4.9)
[2016-12-09] MEDS: CEFTRIAXONE 50 ML IVPB SCH (09:25)
[2016-12-09] MEDS: RANITIDINE HCL 150 MG/10 ML UNIT-DOSE CUP PO SCH (09:25)
[2016-12-09] MEDS: HYDROCHLOROTHIAZIDE 12.5 MG CAPSULE (FP) PO SCH (09:25)
[2016-12-09] MEDS: VALSARTAN 80 MG TABLET (UD) PO SCH (09:25)
[2016-12-09] MEDS: TAMSULOSIN HCL 0.4 MG CAP.ER.24H (FP) PO SCH (09:26)
[2016-12-09] MEDS ORDERED: POTASSIUM CHLORIDE TABS 20 MEQ TABLET.ER (FP) PO SCH (10:00)
--- NOTE | 2016-12-09 14:05 | PN ---
Physical Exam: SUBJECTIVE: Patient seen and examined OBJECTIVE: Vital Signs Period Temp Pulse Resp BP Sys/Brower Pulse Ox Last 24 Hr 97.8 F-99.4 F 80-92 18-20 117-145/55-82 94-96 GENERAL: The patient is awake, alert, and fully oriented, in no acute distress. HEAD: Normal with no signs of trauma. EYES: PERRL, extraocular movements intact, sclera anicteric, conjunctiva clear. No ptosis. ENT: Ears normal, nares patent, oropharynx clear without exudates, moist mucous membranes. NECK: Trachea midline, full range of motion, supple. LUNGS: Breath sounds equal, clear to auscultation bilaterally, no wheezes, no crackles, no accessory muscle use. HEART: Regular rate and rhythm, S1, S2 without murmur, rub or gallop. ABDOMEN: Soft, nontender, nondistended, normoactive bowel sounds, no guarding, no rebound, no hepatosplenomegaly, no masses. EXTREMITIES: 2+ pulses, warm, well-perfused, no edema. NEUROLOGICAL: Cranial nerves II through XII grossly intact. Normal speech, gait not observed. PSYCH: Normal mood, normal affect. SKIN: Warm, dry, normal turgor, no rashes or lesions noted Laboratory Results - last 24 hr 12/09/16 12/09/16 06:05 06:05 WBC 9.7 RBC 2.83 L Hgb 8.4 L Hct 24.5 L MCV 86.7 MCH 29.6 MCHC 34.1 RDW 15.8 Plt Count 193 MPV 9.0 Neutrophils % 76.7 Lymphocytes % 11.4 Monocytes % 9.0 Eosinophils % 2.6 Basophils % 0.3 Sodium 141 Potassium 3.3 L Chloride 105 Carbon Dioxide 29 Anion Gap 7 L BUN 5 L D Creatinine 0.8 Random Glucose 106 D Calcium 7.6 L Phosphorus 2.5 Magnesium 2.0 Active Medications Generic Name Dose Route Start Last Admin Trade Name Freq PRN Reason Stop Dose Admin Hydrochlorothiazide 12.5 mg 12/08/16 10:00 12/09/16 09:25 Hctz - PO 12.5 mg DAILY STEFANI Administration Ceftriaxone Sodium 50 mls @ 100 mls/hr 12/07/16 10:00 12/09/16 09:25 Rocephin 1gm Ivpb (Pre-Docked) IVPB 100 mls/hr DAILY STEFANI Administration Metronidazole 100 mls @ 100 mls/hr 12/06/16 18:00 12/09/16 09:25 Flagyl 500mg Premixed Ivpb - IVPB 100 mls/hr Q8H-IV STEFANI Administration Potassium Chloride/Sodium Chloride 1,000 mls @ 75 mls/hr 12/06/16 17:59 18:00 Ns+20 Meq Kcl - IV 75 mls/hr ASDIR STEFANI Administration Levothyroxine Sodium 100 mcg 12/08/16 07:00 12/09/16 06:10 Synthroid - PO 100 mcg DAILY@0700 STEFANI Administration Morphine Sulfate 2 mg 12/06/16 17:59 Morphine Injection - IVPUSH Q3H PRN PAIN Potassium Chloride 40 meq 12/09/16 10:00 12/09/16 09:25 K-Dur - PO 40 meq DAILY STEFANI Administration Potassium Phos/Sodium Phos 1 packet 12/07/16 14:00 12/09/16 06:11 Phos-Nak Packet - PO 1 packet TID STEFANI Administration Ranitidine HCl 150 mg 12/08/16 10:00 12/09/16 09:25 Zantac Oral Solution - PO 150 mg DAILY STEFANI Administration Tamsulosin HCl 0.4 mg 12/08/16 08:30 12/09/16 09:26 Flomax - PO 0.4 mg DAILY@0830 STEFANI Administration Valsartan 80 mg 12/08/16 10:00 12/09/16 09:25 Diovan - PO 80 mg DAILY STEFANI Administration ASSESSMENT/PLAN: This 86 yr old male with presentatin of a diverticulum GIB Assessment/Plan (1) Lower GI bleed Assessment/Plan: -GI following -s/p embolization and colonoscopy -GI following, defer if needs further intervention -H/H stabilizing Code(s): K92.2 - GASTROINTESTINAL HEMORRHAGE, UNSPECIFIED (2) Anemia Assessment/Plan: -received 7 units pRBCs -currently stable Code(s): D64.9 - ANEMIA, UNSPECIFIED Qualifiers: Anemia type: other cause Other causes of anemia: acute posthemorrhagic Qualified Code(s): D62 - Acute posthemorrhagic anemia (3) Hypertension Assessment/Plan: -continue current regimen -controlled Code(s): I10 - ESSENTIAL (PRIMARY) HYPERTENSION (4) BPH (benign prostatic hyperplasia) Assessment/Plan: -continue flomax Code(s): N40.0 - BENIGN PROSTATIC HYPERPLASIA WITHOUT LOWER URINRY TRACT SYMP (5) Hypothyroid Assessment/Plan: -continue synthroid Code(s): E03.9 - HYPOTHYROIDISM, UNSPECIFIED (6) FEN -tolerating PO diet Pt transferring to med surg, tele d/c'd Problem List - Problems (1) Anemia Code(s): D64.9 - ANEMIA, UNSPECIFIED Qualifiers: Anemia type: other cause Other causes of anemia: acute posthemorrhagic Qualified Code(s): D62 - Acute posthemorrhagic anemia (2) Hyperlipemia Code(s): E78.5 - HYPERLIPIDEMIA, UNSPECIFIED (3) Hypertension Code(s): I10 - ESSENTIAL (PRIMARY) HYPERTENSION (4) Hypokalemia Code(s): E87.6 - HYPOKALEMIA (5) Lower GI bleed Code(s): K92.2 - GASTROINTESTINAL HEMORRHAGE, UNSPECIFIED Visit type - Emergency Visit Emergency Visit: No - New Patient This patient is new to me today: Yes Date on this admission: 12/09/16 - Critical Care Critical Care patient: No - Discharge Referral Referred to [facility] Med P.C.: No
[2016-12-09] MEDS: SODIUM CHLORIDE 0.9%/KCL 1,000 ML IV SCH ×2 (14:45→17:05)
[2016-12-09] MEDS ORDERED: SODIUM CHLORIDE 0.9%/KCL 1,000 ML IV SCH (15:41)
[2016-12-09] MEDS ORDERED: morphine CARPU-JECT 4 MG/1 ML DISP.SYRIN IVPUSH PRN (15:41)
[2016-12-10] MEDS: METRONIDAZOLE 500 MG PREMIXED 100 ML IVPB SCH ×3 (01:25→18:06)
[2016-12-10] MEDS: SODIUM CHLORIDE 0.9%/KCL 1,000 ML IV SCH ×3 (06:34→22:46)
[2016-12-10] MEDS: NAPH,MB-DB/K PH,MBDB POWDER PACKET PO SCH ×3 (06:35→21:20)
[2016-12-10] MEDS: LEVOTHYROXINE NA 100 MCG TABLET (FP) PO SCH (06:35)
[2016-12-10 08:11] LABS: BASOPHIL 0.4 % (0-2.0); MCH 29.4 pg (25.7-33.7); MEAN CELL VOLUME 86.4 fl (80-96); NEUTROPHILS 77.1 % (42.8-82.8); PLATELET COUNT 217 K/MM3 (134-434); RDW 16.2 % (11.9-15.9); WHITE BLOOD COUNT 11.9 K/mm3 (4.0-10.0)
[2016-12-10 08:23] LABS: ALBUMIN 2.7 g/dl (3.4-5.0); ALK PHOS 30 U/L (45-117); ANION GAP 7 (8-16); BILIRUBIN,TOTAL 0.3 mg/dL (0.2-1.0); CALCIUM 7.9 mg/dL (8.5-10.1); CO2 27 mmol/L (21-32); CREATININE 0.7 mg/dL (0.7-1.3); GLUCOSE,RANDOM 97 mg/dL (74-106); SGOT/AST 27 U/L (15-37); SGPT/ALT 25 U/L (12-78)
[2016-12-10] MEDS: TAMSULOSIN HCL 0.4 MG CAP.ER.24H (FP) PO SCH (08:29)
[2016-12-10] MEDS ORDERED: DEXTROSE 5%-WATER - 50 ML IVPB ONE (08:58)
[2016-12-10] MEDS ORDERED: cefTRIAXone SODIUM 1 GM VIAL ONE (08:58)
[2016-12-10] MEDS: VALSARTAN 80 MG TABLET (UD) PO SCH (09:03)
[2016-12-10] MEDS: HYDROCHLOROTHIAZIDE 12.5 MG CAPSULE (FP) PO SCH (09:03)
[2016-12-10] MEDS: POTASSIUM CHLORIDE TABS 20 MEQ TABLET.ER (FP) PO SCH (09:04)
[2016-12-10] MEDS: RANITIDINE HCL 150 MG/10 ML UNIT-DOSE CUP PO SCH (09:04)
[2016-12-10] MEDS: CEFTRIAXONE 1 GM in DEXTROSE 5%-WATER - 50 ML IVPB SCH (10:58)
--- NOTE | 2016-12-10 12:50 | PN ---
Physical Exam: SUBJECTIVE: Patient seen and examined at bedside. OBJECTIVE: Vital Signs Period Temp Pulse Resp BP Sys/Brower Pulse Ox Last 24 Hr 98.0 F-99.7 F 68-94 16-20 115-152/50-88 99 GENERAL: The patient is awake, speech is confused, disjointed. Believes people are trying to make him do things he does not want to do. HEAD: Normal with no signs of trauma. EYES: PERRL, extraocular movements intact, sclera anicteric, conjunctiva clear. No ptosis. LUNGS: Breath sounds equal, clear to auscultation bilaterally, no wheezes, no crackles, no accessory muscle use. HEART: Regular rate and rhythm, S1, S2 without murmur, rub or gallop. ABDOMEN: Soft, nontender, nondistended, normoactive bowel sounds, no guarding, no rebound EXTREMITIES: 2+ pulses, warm, well-perfused, no edema. NEUROLOGICAL: Cranial nerves II through XII grossly intact. Normal speech, gait not observed. Laboratory Results - last 24 hr 12/05/16 12/10/16 12/10/16 05:15 07:10 07:10 WBC 11.9 H RBC 2.81 L Hgb 8.3 L Hct 24.3 L MCV 86.4 MCH 29.4 MCHC 34.0 RDW 16.2 H Plt Count 217 MPV 9.0 Neutrophils % 77.1 Lymphocytes % 10.8 Monocytes % 9.7 Eosinophils % 2.0 Basophils % 0.4 Sodium 140 Potassium 3.5 Chloride 106 Carbon Dioxide 27 Anion Gap 7 L BUN 6 L Creatinine 0.7 Creat Clearance w eGFR > 60 Random Glucose 97 Calcium 7.9 L Total Bilirubin 0.3 D AST 27 ALT 25 D Alkaline Phosphatase 30 L Total Protein 5.0 L Albumin 2.7 L Blood Type O POSITIVE Antibody Screen Negative Crossmatch See Detail Active Medications Generic Name Dose Route Start Last Admin Trade Name Freq PRN Reason Stop Dose Admin Hydrochlorothiazide 12.5 mg 12/10/16 10:00 12/10/16 09:03 Hctz - PO 12.5 mg DAILY STEFANI Administration Ceftriaxone Sodium 1 gm/ 50 mls @ 100 mls/hr 12/10/16 10:00 12/10/16 10:58 Dextrose IVPB 100 mls/hr DAILY STEFANI Administration Metronidazole 100 mls @ 100 mls/hr 12/09/16 18:00 12/10/16 09:04 Flagyl 500mg Premixed Ivpb - IVPB 100 mls/hr Q8H-IV STEFANI Administration Potassium Chloride/Sodium Chloride 1,000 mls @ 75 mls/hr 12/09/16 16:32 06:34 Ns+20 Meq Kcl - IV 75 mls/hr Q13H STEFANI Administration Levothyroxine Sodium 100 mcg 12/10/16 07:00 12/10/16 06:35 Synthroid - PO 100 mcg DAILY@0700 STEFANI Administration Morphine Sulfate 2 mg 12/09/16 15:41 Morphine Injection - IVPUSH Q3H PRN PAIN Potassium Chloride 40 meq 12/10/16 10:00 12/10/16 09:04 K-Dur - PO 40 meq DAILY STEFANI Administration Potassium Phos/Sodium Phos 1 packet 12/09/16 22:00 12/10/16 06:35 Phos-Nak Packet - PO 1 packet TID STEFANI Administration Ranitidine HCl 150 mg 12/10/16 10:00 12/10/16 09:04 Zantac Oral Solution - PO 150 mg DAILY STEFANI Administration Tamsulosin HCl 0.4 mg 12/10/16 08:30 12/10/16 08:29 Flomax - PO 0.4 mg DAILY@0830 STEFANI Administration Valsartan 80 mg 12/10/16 10:00 12/10/16 09:03 Diovan - PO 80 mg DAILY STEFANI Administration ASSESSMENT/PLAN: 86 year-old male with a PMH of HTN, HLD, hypothyroidism, BPH, anemia/peptic ulcer disease, 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 Admitted for lower GI bleed. Lower GI bleed --s/p embolization of the ileal branch of superior mesenteric artery supplying the right colon --last transfused PRBC on 12/06 with response 7.9-->9.5; h/h slowly trending down since then, today 8.3 --monitor h/h Hypertension --BP well-controlled --continue diovan, HCTZ Hyperlipidemia --not on meds due to h/o myositis Atrial/ventricular ectopy --brief PSVT, no symptoms --keep K>4.0 --standing KCl BPH --continue Flomax Dilated ascending aorta --Echo 12/07 ([facility]): nl LV/EF; nl RV; valves WNL; mild dilated ascending aorta ( 4.0 cm) --blood pressure control as above DVT prophylaxis: hold chemical prophylaxis due to bleeding issues; SCDs, oob, ambulation, PT Visit type - Emergency Visit Emergency Visit: Yes ED Registration Date: 12/02/16 Care time: The patient presented to the Emergency Department on the above date and was hospitalized for further evaluation of their emergent condition. - New Patient This patient is new to me today: Yes Date on this admission: 12/10/16 - Critical Care Critical Care patient: No
[2016-12-11] MEDS: METRONIDAZOLE 500 MG PREMIXED 100 ML IVPB SCH ×2 (01:42→10:27)
[2016-12-11] MEDS: NAPH,MB-DB/K PH,MBDB POWDER PACKET PO SCH (06:51)
[2016-12-11] MEDS: LEVOTHYROXINE NA 100 MCG TABLET (FP) PO SCH (06:51)
[2016-12-11] MEDS: TAMSULOSIN HCL 0.4 MG CAP.ER.24H (FP) PO SCH (07:54)
[2016-12-11 08:29] LABS: BASOPHIL 0.7 % (0-2.0); EOSINOPHIL 3.1 % (0-4.5); MCH 29.5 pg (25.7-33.7); MCHC 33.7 g/dl (32.0-35.9); MEAN CELL VOLUME 87.4 fl (80-96); MEAN PLT VOLUME 8.7 fl (7.5-11.1); NEUTROPHILS 75.9 % (42.8-82.8); PLATELET COUNT 267 K/MM3 (134-434); RDW 16.4 % (11.9-15.9); WHITE BLOOD COUNT 11.2 K/mm3 (4.0-10.0)
[2016-12-11 09:03] LABS: ALBUMIN 2.7 g/dl (3.4-5.0); ALK PHOS 30 U/L (45-117); ANION GAP 8 (8-16); BILIRUBIN,TOTAL 0.3 mg/dL (0.2-1.0); CALCIUM 8.3 mg/dL (8.5-10.1); CO2 27 mmol/L (21-32); CREATININE 0.7 mg/dL (0.7-1.3); GLUCOSE,RANDOM 91 mg/dL (74-106); MAGNESIUM 1.9 mg/dL (1.8-2.4); PHOSPHOROUS 2.9 mg/dL (2.5-4.9); SGOT/AST 25 U/L (15-37); SGPT/ALT 25 U/L (12-78); TOT PROT 5.3 g/dl (6.4-8.2)
[2016-12-11] MEDS ORDERED: PT OWN MED DRAWER 7, Y5N ONE (09:19)
[2016-12-11] MEDS ORDERED: DEXTROSE 5%-WATER - 50 ML IVPB ONE (09:19)
[2016-12-11] MEDS ORDERED: cefTRIAXone SODIUM 1 GM VIAL ONE (09:19)
[2016-12-11] MEDS: SODIUM CHLORIDE 0.9%/KCL 1,000 ML IV SCH (09:21)
[2016-12-11] MEDS: VALSARTAN 80 MG TABLET (UD) PO SCH (09:22)
[2016-12-11] MEDS: RANITIDINE HCL 150 MG/10 ML UNIT-DOSE CUP PO SCH (09:22)
[2016-12-11] MEDS: POTASSIUM CHLORIDE TABS 20 MEQ TABLET.ER (FP) PO SCH (09:22)
[2016-12-11] MEDS: CEFTRIAXONE 1 GM in DEXTROSE 5%-WATER - 50 ML IVPB SCH (09:23)
[2016-12-11] MEDS: HYDROCHLOROTHIAZIDE 12.5 MG CAPSULE (FP) PO SCH (09:23)
--- NOTE | 2016-12-11 11:35 | PN ---
Progress Note, Physician Chief Complaint: Mr Lan says he is hungry. Denies cp, sob, n/v. - Current Medication List Current Medications: Active Medications Hydrochlorothiazide (Hctz -) 12.5 mg PO DAILY [facility] Last Admin: 12/11/16 09:23 Dose: 12.5 mg Levothyroxine Sodium (Synthroid -) 100 mcg PO DAILY@0700 [facility] Last Admin: 12/11/16 06:51 Dose: 100 mcg Potassium Chloride (K-Dur -) 40 meq PO DAILY [facility] Last Admin: 12/11/16 09:22 Dose: 40 meq Ranitidine HCl (Zantac Oral Solution -) 150 mg PO DAILY [facility] Last Admin: 12/11/16 09:22 Dose: 150 mg Tamsulosin HCl (Flomax -) 0.4 mg PO DAILY@0830 [facility] Last Admin: 12/11/16 07:54 Dose: 0.4 mg Valsartan (Diovan -) 80 mg PO DAILY [facility] Last Admin: 12/11/16 09:22 Dose: 80 mg - Objective Vital Signs: Vital Signs Temperature 37.1 C 12/11/16 10:00 Pulse Rate 79 12/11/16 10:00 Respiratory Rate 18 12/11/16 10:00 Blood Pressure 144/88 12/11/16 10:00 O2 Sat by Pulse Oximetry (%) 98 12/11/16 09:00 Constitutional: Yes: Well Nourished, No Distress, Calm Cardiovascular: Yes: Regular Rate and Rhythm. No: Gallop, Murmur, Rub Respiratory: Yes: Regular, CTA Bilaterally. No: Rales, Rhonchi, Wheezes Gastrointestinal: Yes: Normal Bowel Sounds, Soft. No: Distention, Tenderness Extremities: Yes: WNL Edema: No Labs: CBC, BMP 12/11/16 06:00 12/11/16 06:00 INR, PTT INR 1.22 (0.82-1.09) H 12/03/16 05:35 Fibrinogen 211.0 mg/dL (238-498) L 12/02/16 23:55 Problem List - Problems (1) Lower GI bleed Code(s): K92.2 - GASTROINTESTINAL HEMORRHAGE, UNSPECIFIED (2) Anemia Code(s): D64.9 - ANEMIA, UNSPECIFIED Qualifiers: Anemia type: other cause Other causes of anemia: acute posthemorrhagic Qualified Code(s): D62 - Acute posthemorrhagic anemia (3) Hypertension Code(s): I10 - ESSENTIAL (PRIMARY) HYPERTENSION (4) BPH (benign prostatic hyperplasia) Code(s): N40.0 - BENIGN PROSTATIC HYPERPLASIA WITHOUT LOWER URINRY TRACT SYMP (5) Hypothyroid Code(s): E03.9 - HYPOTHYROIDISM, UNSPECIFIED (6) Hypophosphatemia Code(s): E83.39 - OTHER DISORDERS OF PHOSPHORUS METABOLISM (7) Hypokalemia Code(s): E87.6 - HYPOKALEMIA Assessment/Plan (1) Lower GI bleed Assessment/Plan: -GI following -s/p embolization and colonoscopy -GI following, defer if needs further intervention -H/H stabilized -d/c planning Code(s): K92.2 - GASTROINTESTINAL HEMORRHAGE, UNSPECIFIED (2) Anemia Assessment/Plan: -received 7 units pRBCs -currently stable Code(s): D64.9 - ANEMIA, UNSPECIFIED Qualifiers: Anemia type: other cause Other causes of anemia: acute posthemorrhagic Qualified Code(s): D62 - Acute posthemorrhagic anemia (3) Hypertension Assessment/Plan: -continue current regimen -controlled Code(s): I10 - ESSENTIAL (PRIMARY) HYPERTENSION (4) BPH (benign prostatic hyperplasia) Assessment/Plan: -continue flomax Code(s): N40.0 - BENIGN PROSTATIC HYPERPLASIA WITHOUT LOWER URINRY TRACT SYMP (5) Hypothyroid Assessment/Plan: -continue synthroid Code(s): E03.9 - HYPOTHYROIDISM, UNSPECIFIED (6) FEN -replaced Dispo -plan for discharge in am
[2016-12-12] MEDS ORDERED: LEVOTHYROXINE NA 100 MCG TABLET (FP) PO SCH (07:00)
[2016-12-12 07:17] LABS: BASOPHIL 0.4 % (0-2.0); EOSINOPHIL 1.5 % (0-4.5); MCH 28.8 pg (25.7-33.7); MCHC 32.9 g/dl (32.0-35.9); MEAN CELL VOLUME 87.7 fl (80-96); MEAN PLT VOLUME 8.2 fl (7.5-11.1); NEUTROPHILS 81.7 % (42.8-82.8); PLATELET COUNT 294 K/MM3 (134-434); RDW 16.5 % (11.9-15.9); WHITE BLOOD COUNT 13.4 K/mm3 (4.0-10.0)
[2016-12-12 07:52] LABS: ANION GAP 9 (8-16); CALCIUM 8.3 mg/dL (8.5-10.1); CO2 29 mmol/L (21-32); CREATININE 0.9 mg/dL (0.7-1.3); GLUCOSE,RANDOM 104 mg/dL (74-106); MAGNESIUM 1.9 mg/dL (1.8-2.4); PHOSPHOROUS 3.2 mg/dL (2.5-4.9)
[2016-12-12] MEDS ORDERED: TAMSULOSIN HCL 0.4 MG CAP.ER.24H (FP) PO SCH (08:30)
[2016-12-12] MEDS ORDERED: HYDROCHLOROTHIAZIDE 12.5 MG CAPSULE (FP) PO SCH ×2 (10:00)
[2016-12-12] MEDS ORDERED: POTASSIUM CHLORIDE TABS 20 MEQ TABLET.ER (FP) PO SCH (10:00)
[2016-12-12] MEDS ORDERED: VALSARTAN 80 MG TABLET (UD) PO SCH (10:00)
[2016-12-12] MEDS ORDERED: RANITIDINE HCL 150 MG/10 ML UNIT-DOSE CUP PO SCH (10:00)
--- NOTE | 2016-12-12 12:11 | DS ---
Physical Examination Vital Signs: Vital Signs Temperature 36.8 C 12/12/16 09:00 Pulse Rate 90 12/12/16 09:00 Respiratory Rate 18 12/12/16 09:00 Blood Pressure 143/76 12/12/16 09:00 O2 Sat by Pulse Oximetry (%) 96 12/12/16 09:00 Constitutional: Yes: Well Nourished, No Distress, Calm Cardiovascular: Yes: Regular Rate and Rhythm. No: Gallop, Murmur, Rub Respiratory: Yes: Regular, CTA Bilaterally. No: Rales, Rhonchi, Wheezes Gastrointestinal: Yes: Normal Bowel Sounds, Soft. No: Distention, Tenderness Extremities: Yes: WNL Edema: No Labs: CBC, BMP 12/12/16 06:45 12/12/16 06:45 Discharge Summary Reason For Visit: LOWER GASTROINYESTINAL HEMORRHAGE Current Active Problems Anemia (Acute) BPH (benign prostatic hyperplasia) (Acute) Hyperlipemia (Acute) Hypertension (Acute) Hypokalemia (Acute) Hypophosphatemia (Acute) Hypothyroid (Acute) Lower GI bleed (Acute) Pancreatic mass (Acute) Hospital Course: (1) Lower GI bleed Code(s): K92.2 - GASTROINTESTINAL HEMORRHAGE, UNSPECIFIED (2) Anemia Code(s): D64.9 - ANEMIA, UNSPECIFIED Qualifiers: Anemia type: other cause Other causes of anemia: acute posthemorrhagic Qualified Code(s): D62 - Acute posthemorrhagic anemia (3) Hypertension Code(s): I10 - ESSENTIAL (PRIMARY) HYPERTENSION (4) BPH (benign prostatic hyperplasia) Code(s): N40.0 - BENIGN PROSTATIC HYPERPLASIA WITHOUT LOWER URINRY TRACT SYMP (5) Hypothyroid Code(s): E03.9 - HYPOTHYROIDISM, UNSPECIFIED (6) Hypophosphatemia Code(s): E83.39 - OTHER DISORDERS OF PHOSPHORUS METABOLISM (7) Hypokalemia Code(s): E87.6 - HYPOKALEMIA Mr Lan is an 86 year old male who came in with LGIB causing ABLA. He was seen emergently and underwent embolization of the ileal branch of the SMA. He was seen by GI and had a colonoscopy where bleeding was cauterized. He required a total of 7 units. After this his bleeding stopped. His diet was advanced and he is doing well. He had low potassium and phosphorus and this was replaced. He is currently stable for discharge to SNF. 38 minutes spent in preparation of this discharge Condition: Stable - Instructions Diet, Activity, Other Instructions: regular diet. Up with assistance, further activity per PT at SNF Referrals: [facility] [Outside] John Teague MD [Staff Physician] - Kvng Cheek MD [Staff Physician] - Praveen Manzanares MD [Primary Care Provider] - [facility] - Home Medications Comprehensive Discharge Medication List: Ambulatory Orders Levothyroxine [Synthroid -] 100 mcg PO DAILY 12/02/16 Tamsulosin HCl [Flomax] 0.4 mg PO DAILY 12/02/16 Valsartan/Hydrochlorothiazide [Valsartan-Hctz 80-12.5 mg Tab] 1 each PO DAILY Potassium Chloride [K-Dur -] 40 meq PO DAILY tab.ec 12/12/16 Ranitidine Oral Solution [Zantac Oral Solution -] 150 mg PO DAILY ml 12/12/16
[2016-12-12 13:31] VITALS: BP 113/68; PULSE 83; TEMP 98.9
== END 2016-12-12 14:58 | DRG 357 ==
LOC: JER 10:49 → JICU 16:38 → J2W 12-06 18:54 → J4W 12-07 19:56 → J5S 12-09 11:54 → UNDODISIN 12-11 13:30
PROVIDERS: ADMIT Internal Medicine; ATTEND Internal Medicine
PROC: 02HV33Z Insertion of Infusion Device into Superior Vena Cava, Percutaneous Approach (ICD-10-PCS; 2016-12-02)
PROC: B548ZZA Ultrasonography of Superior Vena Cava, Guidance (ICD-10-PCS; 2016-12-02)
PROC: 5A1935Z Respiratory Ventilation, Less than 24 Consecutive Hours (ICD-10-PCS; 2016-12-02)
PROC: 0BH17EZ Insertion of Endotracheal Airway into Trachea, Via Natural or Artificial Opening (ICD-10-PCS; 2016-12-02)
PROC: 30233N1 Transfusion of Nonautologous Red Blood Cells into Peripheral Vein, Percutaneous Approach (ICD-10-PCS; 2016-12-02)
PROC: 04L53DZ Occlusion of Superior Mesenteric Artery with Intraluminal Device, Percutaneous Approach (ICD-10-PCS; principal; 2016-12-03)
PROC: B40FYZZ Plain Radiography of Right Lower Extremity Arteries using Other Contrast (ICD-10-PCS; 2016-12-03)
PROC: 30233L1 Transfusion of Nonautologous Fresh Plasma into Peripheral Vein, Percutaneous Approach (ICD-10-PCS; 2016-12-03)
PROC: 30233K1 Transfusion of Nonautologous Frozen Plasma into Peripheral Vein, Percutaneous Approach (ICD-10-PCS; 2016-12-03)
PROC: 0W3P8ZZ Control Bleeding in Gastrointestinal Tract, Via Natural or Artificial Opening Endoscopic (ICD-10-PCS; 2016-12-05)
DX: K57.31 Diverticulosis of large intestine without perforation or abscess with bleeding (principal); D62 Acute posthemorrhagic anemia; I10 Essential (primary) hypertension; E78.5 Hyperlipidemia, unspecified; E03.9 Hypothyroidism, unspecified; N40.0 Benign prostatic hyperplasia without lower urinary tract symptoms; Z87.891 Personal history of nicotine dependence; K86.9 Disease of pancreas, unspecified; F03.90 Unspecified dementia, unspecified severity, without behavioral disturbance, psychotic disturbance, mood disturbance, and anxiety; I49.1 Atrial premature depolarization; E83.39 Other disorders of phosphorus metabolism; E87.6 Hypokalemia; I71.9 Aortic aneurysm of unspecified site, without rupture; I95.9 Hypotension, unspecified
CPT/HCPCS: 36415; 36430; 36600; 71010-TC; 74174-TC; 75726-TC; 80048; 80053; 82272; 82330; 82803; 83605; 83690; 83735; 83880; 84100; 84484; 85025; 85027; 85384; 85610; 85730; 86301; 86850; 86900; 86901; 86922; 93005; 93010; 93306-TC; 94002; 97116-GP; 97162-GP; 99285-25; C1760; C1769; C1887; C1894; P9017; P9038; P9058

== ENCOUNTER 2017-01-24 06:50 | Emergency (ER) | payer OTHER, BC ==
[2017-01-24 07:02] VITALS: BMI 23.0
--- NOTE | 2017-01-24 07:24 | PDOC ---
*Physical Exam - Vital Signs Last Vital Signs Temp Pulse Resp BP Pulse Ox 98.2 F 68 16 152/85 99 01/24/17 06:57 01/24/17 06:57 01/24/17 06:57 01/24/17 06:57 01/24/17 06:57 ED Treatment Course - LABORATORY CBC & Chemistry Diagram: 01/24/17 08:16 01/24/17 08:16 Medical Decision Making - Medical Decision Making 01/24/17 14:29 Pt seen by the Advanced Practice Provider under my direct supervision Ancillary studies reviewed I agree with plan as outlined by the Advanced Practice Provider *DC/Admit/Observation/Transfer Diagnosis at time of Disposition: Fall, Laceration - Discharge Dispostion Disposition: HOME Condition at time of disposition: Good - Referrals Referrals: Eddie Woodruff MD [Primary Care Provider] - Tomer Goldberg MD [Staff Physician] - - Patient Instructions Printed Discharge Instructions: DI for Laceration Repair -- Simple Additional Instructions: You fell today. Your CT had a potential abnormality with the fluid level in your brain. You need to follow up with your primary care doctor And with the neurologist. You have a referral. He needs to follow up in 5-7 days to have your stitches removed. Avoid ambulating by herself in the morning to avoid falling. Return to the emergency department if you have worsening head pain headache, dizziness, numbness or tingling, or any changes in her symptoms.
--- NOTE | 2017-01-24 07:38 | PDOC ---
History of Present Illness - General Chief Complaint: Injury Stated Complaint: FALL Time Seen by Provider: 01/24/17 07:02 - History of Present Illness Initial Comments: 01/24/17 09:19 Patient is an 87-year-old male with past medical history of hypertension, hypothyroidism, BPH, dementia, who presents to the emergency department [facility]. The fall was unwitnessed. He hit his head on with his bed railing and has a laceration to the right forehead. He states that now he feels a little lightheaded and weak. Denies fevers, chills, nausea, vomiting, recent illness, chest pain, shortness of breath, frequency, urgency and dysuria. Past History - Travel Traveled outside of the country in the last 30 days: No Close contact w/someone who was outside of country & ill: No - Past Medical History Allergies/Adverse Reactions: Allergies Allergy/AdvReac Type Severity Reaction Status Date / Time No Known Drug Allergies Allergy Verified 01/24/17 07:02 Home Medications: Ambulatory Orders Levothyroxine [Synthroid -] 100 mcg PO DAILY 12/02/16 Tamsulosin HCl [Flomax] 0.4 mg PO DAILY 12/02/16 Valsartan/Hydrochlorothiazide [Valsartan-Hctz 80-12.5 mg Tab] 80 mg PO DAILY 04/08 Potassium Chloride [K-Dur -] 40 meq PO DAILY tab.ec 12/12/16 Ranitidine Oral Solution [Zantac Oral Solution -] 150 mg PO DAILY ml 12/12/16 Ascorbate Calcium [Vitamin C] 500 mg PO DAILY 01/24/17 Ferrous Sulfate 325 mg PO DAILY 01/24/17 Memantine HCl [Namenda -] 10 mg PO DAILY 01/24/17 Tramadol HCl 50 mg PO DAILY 01/24/17 Anemia: No Asthma: No Cancer: No Cardiac Disorders: No CVA: No COPD: No CHF: No Dementia: No Diabetes: No GI Disorders: Yes (STOMACH ULCER) Disorders: Yes (BPH) HTN: Yes Hypercholesterolemia: Yes Liver Disease: No Seizures: No Thyroid Disease: Yes (HYPO.) - Surgical History Abdominal Surgery: Yes (SURGERY FOR STOMACH ULCER) Appendectomy: No Cardiac Surgery: No Cholecystectomy: No Lung Surgery: No Neurologic Surgery: No Orthopedic Surgery: Yes (RIGHT KNEE SURGERY) - Immunization History Immunization Up to Date: No - Suicide/Smoking/Psychosocial Hx Smoking History: Never smoked Have you smoked in the past 12 months: Yes If you are a former smoker, when did you quit?: 1984 Information on smoking cessation initiated: No Hx Alcohol Use: No Drug/Substance Use Hx: No Substance Use Type: None Hx Substance Use Treatment: No Review of Systems - Review of Systems Able to Perform ROS?: Yes Comments:: 01/24/17 09:57 CONSTITUTIONAL: Absent: fever, chills, diaphoresis, generalized weakness, malaise, loss of appetite HEENT: Absent: rhinorrhea, nasal congestion, throat pain, throat swelling, difficulty swallowing, mouth swelling, ear pain, eye pain, visual Changes CARDIOVASCULAR: Present: Syncope Absent: chest pain, palpitations, irregular heart rate, peripheral edema RESPIRATORY: Absent: cough, shortness of breath, dyspnea with exertion, orthopnea, wheezing, stridor, hemoptysis GASTROINTESTINAL: Absent: abdominal pain, abdominal distension, nausea, vomiting, diarrhea, constipation, melena, hematochezia GENITOURINARY: Absent: dysuria, frequency, urgency, hesitancy, hematuria, flank pain, genital pain MUSCULOSKELETAL: Absent: myalgia, arthralgia, joint swelling SKIN: Present: Laceration to R forehead Absent: rash, itching, pallor HEMATOLOGIC/IMMUNOLOGIC: Absent: easy bleeding, easy bruising, lymphadenopathy, frequent infections ENDOCRINE: Absent: unexplained weight gain, unexplained weight loss, heat intolerance, cold intolerance NEUROLOGIC: Absent: headache, focal weakness or paresthesias, dizziness, unsteady gait, seizure, mental status changes, bladder or bowel incontinence PSYCHIATRIC: Absent: anxiety, depression, suicidal or homicidal ideation, hallucinations. Is the patient limited Latvian proficient: No *Physical Exam - Vital Signs Last Vital Signs Temp Pulse Resp BP Pulse Ox 98.2 F 68 16 152/85 99 01/24/17 06:57 01/24/17 06:57 01/24/17 06:57 01/24/17 06:57 01/24/17 06:57 - Physical Exam Comments: 01/24/17 18:37 GENERAL: Well developed, well nourished. Awake and alert. No acute distress. HEENT: Normocephalic, 2 lacerations on the R face. 2.5cm elliptical deep no foreign body. 1.5cm linear superficial. PERRLA, EOMI. No conjunctival pallor. Sclera are non-icteric. Moist mucous membranes. Oropharynx is clear. NECK: Supple. Full ROM. No JVD. Carotid pulses 2+ and symmetric, without bruits. No thyromegaly. No lymphadenopathy. CARDIOVASCULAR: Regular rate and rhythm. No murmurs, rubs, or gallops. Distal pulses are 2+ and symmetric. PULMONARY: No evidence of respiratory distress. Lungs clear to auscultation bilaterally. No wheezing, rales or rhonchi. ABDOMINAL: Soft. Non-tender. Non-distended. No rebound or guarding. No organomegaly. Normoactive bowel sounds. MUSCULOSKELETAL Normal range of motion at all joints. No bony deformities or tenderness. No CVA tenderness. EXTREMITIES: No cyanosis. No clubbing. No edema. No calf tenderness. SKIN: 2 lacerations on the R face. 2.5cm elliptical deep no foreign body. 1.5cm linear superficial.Warm and dry. Normal capillary refill. No rashes. No jaundice. NEUROLOGICAL: Alert, awake, appropriate. Cranial nerves 2-12 intact. No deficits to light touch and temperature in face, upper extremities and lower extremities. No motor deficits in the in face, upper extremities and lower extremities. Normoreflexic in the upper and lower extremities. Normal speech. Toes are down- going bilaterally. Gait is normal without ataxia. PSYCHIATRIC: Cooperative. Good eye contact. Appropriate mood and affect. Procedures - Laceration/Wound Repair Right Lateral Face Wound Length: to 2.5 cm Wound's Depth, Shape: superficial, flap Irrigated w/ Saline: Yes Betadine Prep: Yes Anesthesia: 1% Lidocaine Amount of Anesthetic (ccs): 3 Wound Repaired With: Sutures Suture Size/Type: 5:0 Number of Sutures: 5 Layer Closure: No Right Medial Face Wound Length: to 2.5 cm Wound Explored: clean, no foreign body present Wound's Depth, Shape: superficial, linear Irrigated w/ Saline: Yes Betadine Prep: Yes Wound Repaired With: Dermabond ED Treatment Course - LABORATORY CBC & Chemistry Diagram: 01/24/17 08:16 01/24/17 08:16 Medical Decision Making - Medical Decision Making 01/24/17 09:50 Patient is an 87-year-old male with past medical history of hypertension, BPH, hypothyroidism, dementia who presents status post syncope. He does have two lacerations to the right forehead. Given that the fall was unwitnessed and the patient blacked out we'll do a broad workup to rule out stroke, ACS, dehydration , sepsis. 1.CBC, CMP, PT/INR, UA, UC, cardiac labs 2.EKG, chest x-ray, head CT 3.wound repair 4.reevaluate 01/24/17 10:58 CBC is within normal limits, CMP also within normal limits cardiac labs are negative at this time. Given that the fall was at 6 this morning we'll draw second set of labs to rule out ACS. EKG: CXR: No evidence of acute pulmonary pathology. 01/24/17 11:[address] shows no evidence of acute bleed, or fracture. However there is a midline shift and the second and third ventricles appear mildly enlarged, possible normal hydrocephalus. Will call primary care to inform him. We'll continue to monitor in the ER for subdural as were still waiting for the second troponin 01/24/17 12:26 Patient is feeling much better after his fall laceration is repaired see procedure note. Second troponin is negative he's been observed in the ER for 17 hours with no headache. Bastian comfortable discharging back to the [facility]. *DC/Admit/Observation/Transfer Diagnosis at time of Disposition: Laceration Fall Qualifiers: Encounter type: initial encounter Qualified Code(s): W19.XXXA - Unspecified fall, initial encounter - Discharge Dispostion Disposition: HOME Condition at time of disposition: Good Admit: No - Referrals Referrals: Eddie Woodruff MD [Primary Care Provider] - Tomer Goldberg MD [Staff Physician] - - Patient Instructions Printed Discharge Instructions: DI for Laceration Repair -- Simple Additional Instructions: You fell today. Your CT had a potential abnormality with the fluid level in your brain. You need to follow up with your primary care doctor And with the neurologist. You have a referral. He needs to follow up in 5-7 days to have your stitches removed. Avoid ambulating by herself in the morning to avoid falling. Return to the emergency department if you have worsening head pain headache, dizziness, numbness or tingling, or any changes in her symptoms.
[2017-01-24 08:25] LABS: BASOPHIL 0.7 % (0-2.0); EOSINOPHIL 1.2 % (0-4.5); MCH 28.4 pg (25.7-33.7); MCHC 32.2 g/dl (32.0-35.9); MEAN CELL VOLUME 88.2 fl (80-96); MEAN PLT VOLUME 7.9 fl (7.5-11.1); NEUTROPHILS 80.1 % (42.8-82.8); PLATELET COUNT 215 K/MM3 (134-434); RDW 15.8 % (11.9-15.9); WHITE BLOOD COUNT 9.5 K/mm3 (4.0-10.0)
[2017-01-24] MEDS ORDERED: ACETAMINOPHEN 1000 MG/100 ML VIAL (NON FORMULARY) IVPB ONE (08:28)
[2017-01-24] MEDS ORDERED: ACETAMINOPHEN INJECTION 100 ML IVPB ONE (08:29)
[2017-01-24 08:49] LABS: URINE APPEARANCE CLEAR; URINE BILIRUBIN NEGATIVE (NEGATIVE); URINE BLOOD NEGATIVE (NEGATIVE); URINE COLOR STRAW; URINE GLUCOSE (UA) NEGATIVE (NEGATIVE); URINE KETONE NEGATIVE (NEGATIVE); URINE LEUK ESTERASE NEGATIVE (NEGATIVE); URINE NITRITE NEGATIVE (NEGATIVE); URINE PROTEIN NEGATIVE (NEGATIVE); URINE UROBILINOGEN NEGATIVE mg/dL (0.2-1.0)
[2017-01-24 08:54] LABS: ALBUMIN 3.7 g/dl (3.4-5.0); ALK PHOS 58 U/L (45-117); ANION GAP 7 (8-16); BILIRUBIN,TOTAL 0.4 mg/dL (0.2-1.0); CALCIUM 9.1 mg/dL (8.5-10.1); CO2 31 mmol/L (21-32); CREATININE 0.7 mg/dL (0.7-1.3); GLUCOSE,RANDOM 93 mg/dL (74-106); SGPT/ALT 22 U/L (12-78); TOT PROT 7.1 g/dl (6.4-8.2)
[2017-01-24 08:55] LABS: TROPONIN I 0.02 ng/ml (0.00-0.05)
[2017-01-24 08:56] LABS: INR 1.11 (0.82-1.09); PROTHROMBIN TIME (PATIENT) 12.2 SEC (9.98-11.88); SGOT/AST 25 U/L (15-37)
--- NOTE | 2017-01-24 10:23 | EKG ---
Test Reason : Blood Pressure : / mmHG Vent. Rate : 068 BPM Atrial Rate : 068 BPM P-R Int : 160 ms QRS Dur : 094 ms QT Int : 416 ms P-R-T Axes : 024 -26 049 degrees QTc Int : 442 ms POOR DATA QUALITY, INTERPRETATION MAY BE ADVERSELY AFFECTED NORMAL SINUS RHYTHM POSSIBLE LEFT ATRIAL ENLARGEMENT BORDERLINE ECG WHEN COMPARED WITH ECG OF 02-DEC-2016 22:56, SINUS RHYTHM HAS REPLACED ATRIAL FIBRILLATION QRS AXIS SHIFTED LEFT Confirmed by HAL RUBIO, RAJWINDER ([id number]) on 01/24/2017 10:22:53 AM Referred By: Confirmed By:RAJWINDER HONG MD
[2017-01-24 12:44] LABS: TROPONIN I 0.02 ng/ml (0.00-0.05)
[2017-01-24 14:59] VITALS: BP 133/78; PULSE 58; TEMP 98
== END 2017-01-24 14:59 | disposition home or self-care (01) ==
LOC: JER 06:50
PROC: 0HQ1XZZ Repair Face Skin, External Approach (ICD-10-PCS; principal; 2017-01-24)
PROC: 3E033NZ Introduction of Analgesics, Hypnotics, Sedatives into Peripheral Vein, Percutaneous Approach (ICD-10-PCS; 2017-01-24)
DX: S01.81XA Laceration without foreign body of other part of head, initial encounter (principal); W18.39XA Other fall on same level, initial encounter; Y93.89 Activity, other specified; Y92.122 Bedroom in nursing home as the place of occurrence of the external cause; I10 Essential (primary) hypertension; E78.00 Pure hypercholesterolemia, unspecified; Z87.891 Personal history of nicotine dependence
CPT/HCPCS: 12013; 12013-25; 36415; 70450-TC; 71010-TC; 80053; 81003; 82553; 84484; 85025; 85610; 86850; 86900; 86901; 93005; 93010; 96374; 99285-25

== ENCOUNTER 2017-08-24 11:46 | Inpatient (IN) | payer OTHER, BC ==
--- NOTE | 2017-08-24 11:55 | PDOC ---
History of Present Illness - General Stated Complaint: FALL Time Seen by Provider: 08/24/17 11:53 - History of Present Illness Initial Comments: 08/24/17 12:48 The patient is an 87 year old male with a history of HTN, HLD, Dementia, Hypothyroidism who presents for evaluation of generalized weakness and frequent falls. The patient is accompanied by his daughter who assists in providing the history. She notes that the patient has been experiencing more frequent falls over the past few weeks with worsening generalized weakness. She notes several falls over the past 24 hours with much difficulty having the patient ambulate prompting their presentation to the ED for evaluation. The patient daughter notes that the patient has baseline mild right sided weakness, but over the past few months, notes that he has been steadily declining. The patient denies any head trauma, pain, or LOC. The patient himself otherwise denies fevers, chills, SOB, chest pain, palpitations, nausea, vomiting, abdominal pain, or changes with urination or bowel movements. Past History - Past Medical History Allergies/Adverse Reactions: Allergies Allergy/AdvReac Type Severity Reaction Status Date / Time No Known Drug Allergies Allergy Verified 08/24/17 12:09 Home Medications: Ambulatory Orders Levothyroxine [Synthroid -] 100 mcg PO DAILY 12/02/16 Tamsulosin HCl [Flomax] 0.4 mg PO DAILY 12/02/16 Valsartan/Hydrochlorothiazide [Valsartan-Hctz 80-12.5 mg Tab] 80 mg PO DAILY 04/08 Potassium Chloride [K-Dur -] 40 meq PO DAILY tab.ec 12/12/16 Ranitidine Oral Solution [Zantac Oral Solution -] 150 mg PO DAILY ml 12/12/16 Ascorbate Calcium [Vitamin C] 500 mg PO DAILY 01/24/17 Ferrous Sulfate 325 mg PO DAILY 01/24/17 Memantine HCl [Namenda -] 10 mg PO DAILY 01/24/17 Tramadol HCl 50 mg PO DAILY 01/24/17 Anemia: No Asthma: No Cancer: No Cardiac Disorders: No CVA: No COPD: No CHF: No Dementia: No Diabetes: No GI Disorders: Yes (STOMACH ULCER) Disorders: Yes (BPH) HTN: Yes Hypercholesterolemia: Yes Liver Disease: No Seizures: No Thyroid Disease: Yes (HYPO.) - Surgical History Abdominal Surgery: Yes (SURGERY FOR STOMACH ULCER) Appendectomy: No Cardiac Surgery: No Cholecystectomy: No Lung Surgery: No Neurologic Surgery: No Orthopedic Surgery: Yes (RIGHT KNEE SURGERY) - Immunization History Immunization Up to Date: No - Suicide/Smoking/Psychosocial Hx Smoking History: Never smoked Have you smoked in the past 12 months: Yes If you are a former smoker, when did you quit?: 1984 Hx Alcohol Use: No Drug/Substance Use Hx: No Substance Use Type: None Hx Substance Use Treatment: No Review of Systems - Review of Systems Comments:: 08/24/17 12:51 Constitutional: Generalized Weakness, Frequent Falls. No fevers, chills, fatigue, malaise HEENT: No Rhinorrhea, nasal congestion, visual changes Cardiovascular: No chest pain, syncope, palpitations, lightheadedness Respiratory: No Cough, SOB, Hemoptysis, Gastrointestinal: No Abdominal pain, Nausea, Vomiting, Constipation, Diarrhea, Melena Genitourinary: No Dysuria, Frequency, Urgency, Hesitancy, Hematuria, Flank pain Musculoskeletal: No Myalgia, arthralgia Skin: No rashes, itching, bruising, pallor Neurologic: No Headache, Dizziness, Numbness, Weakness, or Tingling Psychiatric: No Hallucinations. No SI or HI *Physical Exam - Physical Exam Comments: 08/24/17 12:51 General Appearance: Nourished. No Apparent Distress HEENT: EOMI, JEMAL. No obvious signs of head trauma. No Pharyngeal Erythema, Tonsillar Exudate, Tonsillar Erythema Neck: No Cervical Lymphadenopathy or C-spine Tenderness Respiratory/Chest: Lungs Clear, Normal Breath Sounds. No Crackles, Rales, Rhonchi, Wheezing Cardiovascular: Regular Rhythm, Regular Rate. No Murmur, Gallops, Rubs Gastrointestinal/Abdominal: Normal Bowel Sounds, Soft. No Guarding, Rebound, Tenderness Musculoskeletal: No CVA Tenderness Extremity: Normal Capillary Refill Integumentary: Normal Color, Dry, Warm Neurologic: medicaid eligibility specialist II-XII NML intact, Fully Oriented, Alert, Normal Mood/Affect, Normal Response, Motor Strength 5/5 on the left, Motor Strength 4/5 on the right. Normal Finger to Nose and Heel to [place] Heart Score/ECG Review #1 ECG reviewed & interpreted by me at: 12:52 (Accelerated Junctional rhythm with an Incomplete right bundle branch block) General ECG Interpretation: Normal Rate, Normal Intervals, No acute ischemic changes ED Treatment Course - LABORATORY CBC & Chemistry Diagram: 08/24/17 12:37 08/24/17 12:37 Medical Decision Making - Medical Decision Making 08/24/17 12:53 The patient is an 87 year old male with a history of HTN, HLD, Dementia, Hypothyroidism who presents for evaluation of generalized weakness and frequent falls. Differential includes but is not limited to: ACS, UTI, Intracranial process, Infectious, Metabolic Derangement. Given the patient's history, we will obtain a cbc, cmp, troponin, folate, b12 level, ua, chest plain film, ekg, head ct to evaluate further for possible etiologies. The patient will be a likely admission given his increased frequent falls. We will continue to monitor and reassess in the meantime while here in the ED. 08/24/17 17:09 CBC, cmp, troponin are unremarkable. CPK is elevated to 2000 consistent with rhabdomyolysis. The patient will require admission for further management and we will treat here in the ED with iv fluids. We discussed the case with Dr. Burton who accepted the patient for admission. *DC/Admit/Observation/Transfer Diagnosis at time of Disposition: Rhabdomyolysis Qualifiers: Rhabdomyolysis type: traumatic Encounter type: initial encounter Qualified Code (s): T79.6XXA - Traumatic ischemia of muscle, initial encounter - Discharge Dispostion Condition at time of disposition: Stable Admit: Yes - Referrals - Patient Instructions - Post Discharge Activity
[2017-08-24 12:13] VITALS: BMI 24.4
[2017-08-24 13:23] LABS: BASO % 0.6 % (0-2.0); EOS % 0.9 % (0-4.5); HEMATOCRIT 38.4 % (35.4-49); HEMOGLOBIN 12.5 GM/dL (11.7-16.9); LYMPH % 10.2 % (8-40); MCH 27.2 pg (25.7-33.7); MCHC 32.5 g/dl (32.0-35.9); MEAN CELL VOLUME 83.6 fl (80-96); MEAN PLT VOLUME 9.1 fl (7.5-11.1); MONO % 7.4 % (3.8-10.2); NEUT % 80.9 % (42.8-82.8); PLATELET COUNT 167 K/MM3 (134-434); RBC 4.59 M/mm3 (4.00-5.60); RDW 16.2 % (11.9-15.9); WHITE BLOOD COUNT 8.5 K/mm3 (4.0-10.0)
[2017-08-24 13:52] LABS: ANION GAP 10 (8-16); BILIRUBIN,TOTAL 0.6 mg/dL (0.2-1.0); BLOOD UREA NITROGEN 26 mg/dL (7-18); CALCIUM 9.3 mg/dL (8.5-10.1); CHLORIDE 103 mmol/L (98-107); CO2 26 mmol/L (21-32); CREATININE 1.1 mg/dL (0.7-1.3); GLUCOSE,RANDOM 95 mg/dL (74-106); SGPT/ALT 29 U/L (12-78); SODIUM 139 mmol/L (136-145)
[2017-08-24 14:04] LABS: ALK PHOS 61 U/L (45-117)
[2017-08-24 14:16] LABS: POTASSIUM 4.9 mmol/L (3.5-5.1); SGOT/AST 74 U/L (15-37)
--- NOTE | 2017-08-24 14:21 | PDOC ---
Attending Attestation - HPI HPI: 08/24/17 14:29 The patient is a 87 year old male, with a significant PMH of dementia, HTN, hyperlipidemia, left brain encephalitis, who presents to the emergency department for evaluation of frequent falls for one week. As per the patients daughter, the patient was noted to have frequent falls this past week secondary to right leg weakness. She states the patient has a history of left brain encephalitis and has baseline right lower extremity weakness which has been noted to be progressively worsening. She states the patient follows with neurologist Dr. Goldberg. The patient denies chest pain, shortness of breath, headache and dizziness. Denies fever, chills, nausea, vomit, diarrhea and constipation. Denies dysuria, frequency, urgency and hematuria. Allergies: NKA Neurologist: Dr. Goldberg - Physicial Exam PE: 08/24/17 14:29 Vitals: Triage vital signs reviewed General Appearance: No acute distress, well nourished, well developed Head: Atraumatic Eyes: Pupils equal reactive round, extraocular movement intact Neck: Supple; No nuchal rigidity Chest Wall: Nontender Cardiac: Regular rate and rhythm, no murmurs, no rubs, no gallops Lungs: Clear to auscultation bilateral, good air movement bilaterally Abdomen: Soft, nondistended, normal bowel sounds, nontender to palpation Rectal: Exam deferred Extremities: Full range of motion to all extremities, no cyanosis, clubbing, or edema Skin: Warm and dry, no rashes or lesions, no rash, no petechiae Neuro: Cranial Nerves 2-12 grossly intact, Strength intact to all extremities, Sensation intact to all extremities. Psych: Normal mood, normal affect - Medical Decision Making 08/24/17 14:29 The patient is a 87 year old male, with a significant PMH of dementia, HTN, hyperlipidemia, left brain encephalitis, who presents to the emergency department for evaluation of frequent falls for one week. Plan: Labs, EKG, Head CT without contrast, Chest x-ray. Documentation prepared by Lencho Prieto, acting as medical cash poster for John Perez MD. <Lencho Prieto - Last Filed: 08/24/17 14:29> - Resident Resident Name: Ayan Schmidt - ED Attending Attestation I have performed the following: I have examined & evaluated the patient, The case was reviewed & discussed with the resident, I agree w/resident's findings & plan, Exceptions are as noted - Medical Decision Making Progressively worse weakness right sided chronic now with multiple falls over the past week. Laboratory analysis notable for rhabdomyolysis. Normal creatinine We'll admit to medicine for further evaluation of weakness falls possible neurology consultation hydration and further management. <John Perez - Last Filed: 08/24/17 16:22>
[2017-08-24] MEDS ORDERED: SODIUM CHLORIDE 1,000 ML IV STA (14:48)
[2017-08-24 15:22] LABS: URINE APPEARANCE CLEAR; URINE BILIRUBIN NEGATIVE (<2.0 mg/dL); URINE COLOR LTYELLOW; URINE GLUCOSE (UA) NEGATIVE (NEGATIVE); URINE KETONE NEGATIVE (NEGATIVE); URINE LEUK ESTERASE NEGATIVE (NEGATIVE); URINE NITRITE NEGATIVE (NEGATIVE); URINE PROTEIN NEGATIVE (NEGATIVE); URINE UROBILINOGEN NEGATIVE mg/dL (0.2-1.0)
[2017-08-24] MEDS ORDERED: ACETAMINOPHEN 325 MG TABLET (FP) PO PRN (15:24)
--- NOTE | 2017-08-24 15:38 | HP ---
Admitting History and Physical - Primary Care Physician PCP: Praveen Manzanares - Admission Chief Complaint: Sometimes I feel not so good, sometimes I feel ok History of Present Illness: Mr Lan is a very pleasant 87 year old male with dementia who was brought in by his family for frequent falls. Patient answers yes/no questions appropriately but cannot tell me the reason he is here, only that "he was brought in". He says he is falling, but not passing out, and his last fall was on Sunday. He denies hitting his head. He denies headache, lightheadedness, dizziness, fevers, chills, chest pain or pressure, shortness of breath, nausea, vomiting, diarrhea, constipation, difficulty or pain on urination, swelling, or musculoskeletal pain. He says he feels "pretty good" right now. 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: Dementia Cardiovascular: Yes: HTN, Hyperlipdemia Gastrointestinal: Yes: Peptic Ulcer Disease Renal/: Yes: BPH - Past Surgical History Additional Past Surgical History: Ulcer surgery - Smoking History Smoking history: Never smoked Have you smoked in the past 12 months: Yes If you are a former smoker, when did you quit?: 1984 - Alcohol/Substance Use Hx Alcohol Use: No History of Substance Use: reports: None - Social History Usual Living Arrangement: Yes: With Child ADL: Family Assistance History of Recent Travel: No Home Medications - Allergies Allergies/Adverse Reactions: Allergies Allergy/AdvReac Type Severity Reaction Status Date / Time No Known Drug Allergies Allergy Verified 08/24/17 12:09 - Home Medications Home Medications: Ambulatory Orders Levothyroxine [Synthroid -] 100 mcg PO DAILY 12/02/16 Tamsulosin HCl [Flomax] 0.4 mg PO DAILY 12/02/16 Valsartan/Hydrochlorothiazide [Valsartan-Hctz 80-12.5 mg Tab] 80 mg PO DAILY 04/08 Potassium Chloride [K-Dur -] 40 meq PO DAILY tab.ec 12/12/16 Ranitidine Oral Solution [Zantac Oral Solution -] 150 mg PO DAILY ml 12/12/16 Ascorbate Calcium [Vitamin C] 500 mg PO DAILY 01/24/17 Ferrous Sulfate 325 mg PO DAILY 01/24/17 Memantine HCl [Namenda -] 10 mg PO DAILY 01/24/17 Tramadol HCl 50 mg PO DAILY 01/24/17 Family Disease History - Family Disease History Family History: Unable to Obtain Review of Systems Findings/Remarks: Full review of systems obtained, as per HPI and otherwise negative. Physical Examination Vital Signs: Vital Signs Temperature 36.9 C 08/24/17 12:00 Pulse Rate 72 08/24/17 12:00 Respiratory Rate 20 08/24/17 12:00 Blood Pressure 127/79 08/24/17 12:00 O2 Sat by Pulse Oximetry (%) 96 08/24/17 13:02 Constitutional: Yes: Well Nourished, No Distress, Calm Eyes: Yes: Conjunctiva Clear, EOM Intact, PERRL Cardiovascular: Yes: Regular Rate and Rhythm. No: Gallop, Murmur, Rub Respiratory: Yes: Regular, CTA Bilaterally. No: Rales, Rhonchi, Wheezes Gastrointestinal: Yes: Normal Bowel Sounds, Soft. No: Distention, Tenderness Extremities: Yes: WNL Edema: No Labs: CBC, BMP 08/24/17 12:37 08/24/17 12:37 Imaging - Results Chest X-ray: Report Reviewed, Image Reviewed Cat Scan: Report Reviewed Problem List - Problems (1) Rhabdomyolysis Assessment/Plan: -patient comes in with falls and suspected extended time on the ground -or possible multiple falls with muscle breakdown -admit to the hospital -hydration with IVF -will do lower rate considering age, will start at 75ml/hr after bolus -follow up CPK in am Code(s): M62.82 - RHABDOMYOLYSIS Qualifiers: Rhabdomyolysis type: traumatic Encounter type: initial encounter Qualified Code(s): T79.6XXA - Traumatic ischemia of muscle, initial encounter (2) MIRACLE (acute kidney injury) Assessment/Plan: -secondary to rhabdo vs dehydration -creatinine in normal range, but considering age/weight and baseline BUN/Cr this is MIRACLE -hydration as above -will stop HCTZ -will continue valsartan but will stop if hypotensive or creatinine worsening Code(s): N17.9 - ACUTE KIDNEY FAILURE, UNSPECIFIED (3) Fall Assessment/Plan: -with progressive weakness -fall risk precautions -PT consult -would benefit from SNF on discharge Code(s): W19.XXXA - UNSPECIFIED FALL, INITIAL ENCOUNTER Qualifiers: Encounter type: initial encounter Qualified Code(s): W19.XXXA - Unspecified fall, initial encounter (4) Anemia Assessment/Plan: -at baseline, but suspect slightly lower from hemoconcentration -monitor, continue iron Code(s): D64.9 - ANEMIA, UNSPECIFIED Qualifiers: Anemia type: other cause Other causes of anemia: acute posthemorrhagic Qualified Code(s): D62 - Acute posthemorrhagic anemia (5) BPH (benign prostatic hyperplasia) Assessment/Plan: -continue flomax Code(s): N40.0 - BENIGN PROSTATIC HYPERPLASIA WITHOUT LOWER URINRY TRACT SYMP (6) Hypertension Assessment/Plan: -normotensive -continue valsartan -d/c HCTZ -does not need tight blood pressure control considering falls -may benefit from stopping valsartan, will monitor Code(s): I10 - ESSENTIAL (PRIMARY) HYPERTENSION (7) Hypothyroid Assessment/Plan: -continue synthroid -check TSH/FT4 as may be contributing to weakness Code(s): E03.9 - HYPOTHYROIDISM, UNSPECIFIED
[2017-08-24] MEDS: HEPARIN NA (PORCINE) 5,000 UNITS/ML 1ML VIAL SQ SCH (17:30)
[2017-08-24] MEDS: SODIUM CHLORIDE 1,000 ML IV SCH (17:30)
[2017-08-24] MEDS: DOCUSATE SODIUM 100 MG CAPSULE (FP) PO SCH (21:01)
[2017-08-25] MEDS: HEPARIN NA (PORCINE) 5,000 UNITS/ML 1ML VIAL SQ SCH ×3 (02:56→17:04)
[2017-08-25] MEDS: SODIUM CHLORIDE 1,000 ML IV SCH ×2 (04:15→15:21)
[2017-08-25] MEDS: LEVOTHYROXINE NA 100 MCG TABLET (FP) PO SCH (06:09)
[2017-08-25 08:24] LABS: BASO % 0.4 % (0-2.0); EOS % 2.6 % (0-4.5); HEMATOCRIT 38.1 % (35.4-49); HEMOGLOBIN 12.5 GM/dL (11.7-16.9); LYMPH % 20.8 % (8-40); MCH 27.4 pg (25.7-33.7); MCHC 32.9 g/dl (32.0-35.9); MEAN CELL VOLUME 83.4 fl (80-96); MONO % 8.5 % (3.8-10.2); NEUT % 67.7 % (42.8-82.8); PLATELET COUNT 168 K/MM3 (134-434); RBC 4.56 M/mm3 (4.00-5.60); RDW 16.1 % (11.9-15.9); WHITE BLOOD COUNT 8.6 K/mm3 (4.0-10.0)
[2017-08-25 08:43] LABS: ANION GAP 6 (8-16); BLOOD UREA NITROGEN 13 mg/dL (7-18); CALCIUM 8.3 mg/dL (8.5-10.1); CHLORIDE 107 mmol/L (98-107); CO2 28 mmol/L (21-32); GLUCOSE,RANDOM 97 mg/dL (74-106); MAGNESIUM 2.1 mg/dL (1.8-2.4); POTASSIUM 3.3 mmol/L (3.5-5.1); SODIUM 141 mmol/L (136-145)
--- NOTE | 2017-08-25 09:10 | PN ---
Progress Note, Physician Chief Complaint: No new compliants c/o Body Pain History of Present Illness: 87 year old male with HTN,dementia who was brought in by his family for frequent falls. Lab shows dehydration and elevated CK trending normal, awaiting SNF placement - Current Medication List Current Medications: Active Medications Acetaminophen (Tylenol -) 650 mg PO Q4H PRN PRN Reason: PAIN LEVEL 1-5 Ascorbic Acid (Vitamin C -) 500 mg PO DAILY [facility] Docusate Sodium (Colace -) 100 mg PO BID [facility] Last Admin: 08/24/17 21:01 Dose: 100 mg Ferrous Sulfate (Feosol -) 325 mg PO DAILY [facility] Heparin Sodium (Porcine) (Heparin -) 5,000 unit SQ Q8H-IV [facility] Last Admin: 08/25/17 02:56 Dose: 5,000 unit Sodium Chloride (Normal Saline -) 1,000 mls @ 75 mls/hr IV ASDIR [facility] Last Admin: 08/25/17 04:15 Dose: 75 mls/hr Levothyroxine Sodium (Synthroid -) 100 mcg PO AM [facility] Last Admin: 08/25/17 06:09 Dose: 100 mcg Memantine (Namenda -) 10 mg PO DAILY [facility] Potassium Chloride (Potassium Chloride Oral Liquid) 20 meq PO BID [facility] Ranitidine HCl (Zantac Oral Solution -) 150 mg PO DAILY [facility] Tamsulosin HCl (Flomax -) 0.4 mg PO DAILY@0830 [facility] Valsartan (Diovan -) 80 mg PO DAILY [facility] - Objective Vital Signs: Vital Signs Temperature 98.3 F 08/25/17 05:57 Pulse Rate 82 08/25/17 05:57 Respiratory Rate 18 08/25/17 05:57 Blood Pressure 154/82 08/25/17 05:57 O2 Sat by Pulse Oximetry (%) 98 08/24/17 22:00 Elderly man not in distress HEENT: Mm moist, no anemai, PERRLA NECK: No JVD No Bruit, Trachea central CHEST: CTA B/L CVS: S1S2 R ABD: Non tender BS + EXT: Trace edema, , pulses + 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 Labs: CBC, BMP 08/25/17 07:35 08/25/17 07:35 Problem List - Problems (1) Gait abnormality Assessment/Plan: Due to Dementia and old age , PT evaluation, fall precautions possible placement to [facility] Code(s): R26.9 - UNSPECIFIED ABNORMALITIES OF GAIT AND MOBILITY (2) Rhabdomyolysis Assessment/Plan: Due to fall improving cont Hydration Code(s): M62.82 - RHABDOMYOLYSIS Qualifiers: Rhabdomyolysis type: traumatic Encounter type: initial encounter Qualified Code(s): T79.6XXA - Traumatic ischemia of muscle, initial encounter (3) Hypertension Assessment/Plan: Well controlled cont home meds Code(s): I10 - ESSENTIAL (PRIMARY) HYPERTENSION (4) Hypothyroid Assessment/Plan: Cont Levothyroxine F/U TSH Code(s): E03.9 - HYPOTHYROIDISM, UNSPECIFIED (5) BPH (benign prostatic hyperplasia) Assessment/Plan: Cont Flomax Code(s): N40.0 - BENIGN PROSTATIC HYPERPLASIA WITHOUT LOWER URINRY TRACT SYMP (6) Hypokalemia Assessment/Plan: Repleted F/U BMP Code(s): E87.6 - HYPOKALEMIA (7) Dehydration Assessment/Plan: cont IV Hydration Code(s): E86.0 - DEHYDRATION (8) MIRACLE (acute kidney injury) Assessment/Plan: Due to dehydration, now improving Code(s): N17.9 - ACUTE KIDNEY FAILURE, UNSPECIFIED
[2017-08-25] MEDS ORDERED: PT OWN MED DRAWER 7, Y5N ONE (09:31)
[2017-08-25] MEDS: POTASSIUM CHLORIDE ORAL LIQUID 20 MEQ/15 ML PO SCH ×2 (09:47→21:46)
[2017-08-25] MEDS: FERROUS SO4 325 MG TABLET (FP) PO SCH (09:47)
[2017-08-25] MEDS: TAMSULOSIN HCL 0.4 MG CAP.ER.24H (FP) PO SCH (09:47)
[2017-08-25] MEDS: VALSARTAN 80 MG TABLET (UD) PO SCH (09:47)
[2017-08-25] MEDS: ASCORBIC ACID 500 MG TABLET (FP) PO SCH (09:47)
[2017-08-25] MEDS: DOCUSATE SODIUM 100 MG CAPSULE (FP) PO SCH ×2 (09:47→21:46)
[2017-08-25] MEDS: MEMANTINE HCL 10 MG TABLET (FP) PO SCH (09:47)
[2017-08-25] MEDS: RANITIDINE HCL 150 MG/10 ML UNIT-DOSE PO SCH (11:47)
--- NOTE | 2017-08-25 14:36 | EKG ---
Test Reason : Blood Pressure : / mmHG Vent. Rate : 080 BPM Atrial Rate : 080 BPM P-R Int : 000 ms QRS Dur : 102 ms QT Int : 408 ms P-R-T Axes : 000 -27 000 degrees QTc Int : 470 ms NSR with atrial bigeminy INCOMPLETE RIGHT BUNDLE BRANCH BLOCK POSSIBLE ANTERIOR INFARCT , AGE UNDETERMINED ABNORMAL ECG WHEN COMPARED WITH ECG OF 24-JAN-2017 07:49, JUNCTIONAL RHYTHM HAS REPLACED SINUS RHYTHM NONSPECIFIC T WAVE ABNORMALITY, WORSE IN LATERAL LEADS Confirmed by MD Desean, Ayan ([id number]) on 08/25/2017 2:36:14 PM Referred By: Confirmed By:Ayan Anton MD
[2017-08-26] MEDS: HEPARIN NA (PORCINE) 5,000 UNITS/ML 1ML VIAL SQ SCH ×3 (02:19→17:40)
[2017-08-26] MEDS: LEVOTHYROXINE NA 100 MCG TABLET (FP) PO SCH (06:05)
[2017-08-26 08:23] LABS: BASO % 0.3 % (0-2.0); EOS % 1.9 % (0-4.5); HEMATOCRIT 37.8 % (35.4-49); HEMOGLOBIN 12.5 GM/dL (11.7-16.9); LYMPH % 18.4 % (8-40); MCH 27.5 pg (25.7-33.7); MCHC 33.1 g/dl (32.0-35.9); MEAN PLT VOLUME 9.1 fl (7.5-11.1); MONO % 8.1 % (3.8-10.2); NEUT % 71.3 % (42.8-82.8); PLATELET COUNT 162 K/MM3 (134-434); RBC 4.56 M/mm3 (4.00-5.60); RDW 16.1 % (11.9-15.9); WHITE BLOOD COUNT 8.5 K/mm3 (4.0-10.0)
[2017-08-26 08:51] LABS: ALBUMIN 3.5 g/dl (3.4-5.0); ANION GAP 8 (8-16); BILIRUBIN,TOTAL 0.5 mg/dL (0.2-1.0); BLOOD UREA NITROGEN 10 mg/dL (7-18); CALCIUM 8.5 mg/dL (8.5-10.1); CHLORIDE 107 mmol/L (98-107); CO2 28 mmol/L (21-32); CREATININE 0.9 mg/dL (0.7-1.3); GLUCOSE,RANDOM 87 mg/dL (74-106); SGOT/AST 38 U/L (15-37); SGPT/ALT 24 U/L (12-78); SODIUM 143 mmol/L (136-145); TOT PROT 6.9 g/dl (6.4-8.2)
[2017-08-26 09:04] LABS: ALK PHOS 56 U/L (45-117)
[2017-08-26] MEDS ORDERED: PT OWN MED DRAWER 7, Y5N ONE (09:48)
[2017-08-26] MEDS: RANITIDINE HCL 150 MG/10 ML UNIT-DOSE PO SCH (09:52)
[2017-08-26] MEDS: VALSARTAN 80 MG TABLET (UD) PO SCH (09:52)
[2017-08-26] MEDS: ASCORBIC ACID 500 MG TABLET (FP) PO SCH (09:52)
[2017-08-26] MEDS: MEMANTINE HCL 10 MG TABLET (FP) PO SCH (09:52)
[2017-08-26] MEDS: DOCUSATE SODIUM 100 MG CAPSULE (FP) PO SCH ×2 (09:52→22:17)
[2017-08-26] MEDS: TAMSULOSIN HCL 0.4 MG CAP.ER.24H (FP) PO SCH (09:52)
[2017-08-26] MEDS: POTASSIUM CHLORIDE ORAL LIQUID 20 MEQ/15 ML PO SCH ×2 (09:52→22:16)
[2017-08-26] MEDS: FERROUS SO4 325 MG TABLET (FP) PO SCH (09:52)
--- NOTE | 2017-08-26 11:48 | PN ---
Progress Note, Physician - Current Medication List Current Medications: Active Medications Acetaminophen (Tylenol -) 650 mg PO Q4H PRN PRN Reason: PAIN LEVEL 1-5 Ascorbic Acid (Vitamin C -) 500 mg PO DAILY [facility] Last Admin: 08/26/17 09:52 Dose: 500 mg Docusate Sodium (Colace -) 100 mg PO BID [facility] Last Admin: 08/26/17 09:52 Dose: 100 mg Ferrous Sulfate (Feosol -) 325 mg PO DAILY [facility] Last Admin: 08/26/17 09:52 Dose: 325 mg Heparin Sodium (Porcine) (Heparin -) 5,000 unit SQ Q8H-IV [facility] Last Admin: 08/26/17 09:52 Dose: 5,000 unit Sodium Chloride (Normal Saline -) 1,000 mls @ 75 mls/hr IV ASDIR [facility] Last Admin: 08/25/17 15:21 Dose: 75 mls/hr Levothyroxine Sodium (Synthroid -) 100 mcg PO AM [facility] Last Admin: 08/26/17 06:05 Dose: 100 mcg Memantine (Namenda -) 10 mg PO DAILY [facility] Last Admin: 08/26/17 09:52 Dose: 10 mg Potassium Chloride (Potassium Chloride Oral Liquid) 20 meq PO BID [facility] Last Admin: 08/26/17 09:52 Dose: 20 meq Ranitidine HCl (Zantac Oral Solution -) 150 mg PO DAILY [facility] Last Admin: 08/26/17 09:52 Dose: 150 mg Tamsulosin HCl (Flomax -) 0.4 mg PO DAILY@0830 [facility] Last Admin: 08/26/17 09:52 Dose: 0.4 mg Valsartan (Diovan -) 80 mg PO DAILY [facility] Last Admin: 08/26/17 09:52 Dose: 80 mg - Objective Vital Signs: Vital Signs Temperature 98.7 F 08/26/17 08:49 Pulse Rate 81 08/26/17 08:49 Respiratory Rate 20 08/26/17 08:49 Blood Pressure 147/74 08/26/17 08:49 O2 Sat by Pulse Oximetry (%) 97 08/25/17 22:00 Elderly man not in distress HEENT: Mm moist, no anemai, PERRLA NECK: No JVD No Bruit, Trachea central CHEST: CTA B/L CVS: S1S2 R ABD: Non tender BS + EXT: Trace edema, , pulses + 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: Dementia, non focal exam Labs: CBC, BMP 08/26/17 07:30 08/26/17 07:30 CK 1684 Problem List - Problems (1) Gait abnormality Assessment/Plan: Due to Dementia and old age , PT evaluation, fall precautions possible placement to [facility] Code(s): R26.9 - UNSPECIFIED ABNORMALITIES OF GAIT AND MOBILITY (2) Rhabdomyolysis Assessment/Plan: Due to fall improving cont Hydration Code(s): M62.82 - RHABDOMYOLYSIS Qualifiers: Rhabdomyolysis type: traumatic Encounter type: initial encounter Qualified Code(s): T79.6XXA - Traumatic ischemia of muscle, initial encounter (3) Hypertension Assessment/Plan: Well controlled cont home meds Code(s): I10 - ESSENTIAL (PRIMARY) HYPERTENSION (4) Hypothyroid Assessment/Plan: Cont Levothyroxine F/U TSH Code(s): E03.9 - HYPOTHYROIDISM, UNSPECIFIED (5) BPH (benign prostatic hyperplasia) Assessment/Plan: Cont Flomax Code(s): N40.0 - BENIGN PROSTATIC HYPERPLASIA WITHOUT LOWER URINRY TRACT SYMP (6) Hypokalemia Assessment/Plan: Resolved Code(s): E87.6 - HYPOKALEMIA (7) Dehydration Assessment/Plan: cont IV Hydration Code(s): E86.0 - DEHYDRATION (8) MIRACLE (acute kidney injury) Assessment/Plan: Due to dehydration, now improving Code(s): N17.9 - ACUTE KIDNEY FAILURE, UNSPECIFIED
[2017-08-26] MEDS: SODIUM CHLORIDE 1,000 ML IV SCH (16:27)
[2017-08-26] MEDS: SODIUM CHLORIDE 500 ML IV SCH (17:40)
[2017-08-26] MEDS ORDERED: amLODIPine BESYLATE 5 MG TABLET (FP) PO ONE ×2 (22:15→23:45)
[2017-08-27] MEDS: HEPARIN NA (PORCINE) 5,000 UNITS/ML 1ML VIAL SQ SCH ×3 (02:11→19:02)
[2017-08-27] MEDS ORDERED: FUROSEMIDE 40 MG/4 ML INJECTABLE VIAL IVPUSH ONE (02:15)
[2017-08-27] MEDS: LEVOTHYROXINE NA 100 MCG TABLET (FP) PO SCH (06:46)
[2017-08-27 07:24] LABS: BASO % 0.4 % (0-2.0); EOS % 1.7 % (0-4.5); HEMATOCRIT 38.7 % (35.4-49); HEMOGLOBIN 12.9 GM/dL (11.7-16.9); LYMPH % 17.9 % (8-40); MCH 27.7 pg (25.7-33.7); MCHC 33.3 g/dl (32.0-35.9); MEAN CELL VOLUME 83.3 fl (80-96); MEAN PLT VOLUME 8.5 fl (7.5-11.1); MONO % 10.2 % (3.8-10.2); NEUT % 69.8 % (42.8-82.8); PLATELET COUNT 169 K/MM3 (134-434); RBC 4.65 M/mm3 (4.00-5.60); RDW 16.2 % (11.9-15.9); WHITE BLOOD COUNT 8.8 K/mm3 (4.0-10.0)
[2017-08-27 07:51] LABS: ANION GAP 10 (8-16); BLOOD UREA NITROGEN 10 mg/dL (7-18); CALCIUM 9.1 mg/dL (8.5-10.1); CHLORIDE 102 mmol/L (98-107); CO2 30 mmol/L (21-32); CREATININE 0.9 mg/dL (0.7-1.3); GLUCOSE,RANDOM 92 mg/dL (74-106); POTASSIUM 3.4 mmol/L (3.5-5.1); SODIUM 142 mmol/L (136-145)
[2017-08-27] MEDS ORDERED: PT OWN MED DRAWER 7, Y5N ONE (09:09)
[2017-08-27] MEDS: ASCORBIC ACID 500 MG TABLET (FP) PO SCH (09:14)
[2017-08-27] MEDS: RANITIDINE HCL 150 MG/10 ML UNIT-DOSE PO SCH (09:14)
[2017-08-27] MEDS: VALSARTAN 80 MG TABLET (UD) PO SCH (09:14)
[2017-08-27] MEDS: TAMSULOSIN HCL 0.4 MG CAP.ER.24H (FP) PO SCH (09:14)
[2017-08-27] MEDS: FERROUS SO4 325 MG TABLET (FP) PO SCH (09:14)
[2017-08-27] MEDS: MEMANTINE HCL 10 MG TABLET (FP) PO SCH (09:14)
[2017-08-27] MEDS: POTASSIUM CHLORIDE ORAL LIQUID 20 MEQ/15 ML PO SCH ×2 (09:14→21:44)
[2017-08-27] MEDS: DOCUSATE SODIUM 100 MG CAPSULE (FP) PO SCH ×2 (09:21→21:44)
[2017-08-27] MEDS: SODIUM CHLORIDE 500 ML IV SCH (11:49)
[2017-08-27] MEDS ORDERED: SODIUM CHLORIDE 1,000 ML IV SCH (12:00)
--- NOTE | 2017-08-27 12:09 | PN ---
Progress Note, Physician Chief Complaint: Mr Lan is without complaint. He says he feels fine. No cp, sob, n/v. - Current Medication List Current Medications: Active Medications Acetaminophen (Tylenol -) 650 mg PO Q4H PRN PRN Reason: PAIN LEVEL 1-5 Ascorbic Acid (Vitamin C -) 500 mg PO DAILY [facility] Last Admin: 08/27/17 09:14 Dose: 500 mg Docusate Sodium (Colace -) 100 mg PO BID [facility] Last Admin: 08/27/17 09:21 Dose: 100 mg Ferrous Sulfate (Feosol -) 325 mg PO DAILY [facility] Last Admin: 08/27/17 09:14 Dose: 325 mg Heparin Sodium (Porcine) (Heparin -) 5,000 unit SQ Q8H-IV [facility] Last Admin: 08/27/17 09:14 Dose: 5,000 unit Sodium Chloride (Normal Saline -) 1,000 mls @ 100 mls/hr IV ASDIR [facility] Levothyroxine Sodium (Synthroid -) 100 mcg PO AM [facility] Last Admin: 08/27/17 06:46 Dose: 100 mcg Memantine (Namenda -) 10 mg PO DAILY [facility] Last Admin: 08/27/17 09:14 Dose: 10 mg Potassium Chloride (Potassium Chloride Oral Liquid) 20 meq PO BID [facility] Last Admin: 08/27/17 09:14 Dose: 20 meq Ranitidine HCl (Zantac Oral Solution -) 150 mg PO DAILY [facility] Last Admin: 08/27/17 09:14 Dose: 150 mg Tamsulosin HCl (Flomax -) 0.4 mg PO DAILY@0830 [facility] Last Admin: 08/27/17 09:14 Dose: 0.4 mg Valsartan (Diovan -) 80 mg PO DAILY [facility] Last Admin: 08/27/17 09:14 Dose: 80 mg - Objective Vital Signs: Vital Signs Temperature 36.6 C 08/27/17 09:00 Pulse Rate 78 08/27/17 09:00 Respiratory Rate 20 08/27/17 09:00 Blood Pressure 157/81 08/27/17 09:00 O2 Sat by Pulse Oximetry (%) 97 08/26/17 21:00 Constitutional: Yes: Well Nourished, No Distress, Calm Cardiovascular: Yes: Regular Rate and Rhythm. No: Gallop, Murmur, Rub Respiratory: Yes: Regular, CTA Bilaterally. No: Rales, Rhonchi, Wheezes Gastrointestinal: Yes: Normal Bowel Sounds, Soft. No: Distention, Tenderness Extremities: Yes: WNL Edema: No Labs: CBC, BMP 08/27/17 07:02 08/27/17 07:02 Problem List - Problems (1) Rhabdomyolysis Code(s): M62.82 - RHABDOMYOLYSIS Qualifiers: Rhabdomyolysis type: traumatic Encounter type: initial encounter Qualified Code(s): T79.6XXA - Traumatic ischemia of muscle, initial encounter (2) MIRACLE (acute kidney injury) Code(s): N17.9 - ACUTE KIDNEY FAILURE, UNSPECIFIED (3) Fall Code(s): W19.XXXA - UNSPECIFIED FALL, INITIAL ENCOUNTER Qualifiers: Encounter type: initial encounter Qualified Code(s): W19.XXXA - Unspecified fall, initial encounter (4) Anemia Code(s): D64.9 - ANEMIA, UNSPECIFIED Qualifiers: Anemia type: other cause Other causes of anemia: acute posthemorrhagic Qualified Code(s): D62 - Acute posthemorrhagic anemia (5) BPH (benign prostatic hyperplasia) Code(s): N40.0 - BENIGN PROSTATIC HYPERPLASIA WITHOUT LOWER URINRY TRACT SYMP (6) Hypertension Code(s): I10 - ESSENTIAL (PRIMARY) HYPERTENSION (7) Hypothyroid Code(s): E03.9 - HYPOTHYROIDISM, UNSPECIFIED Assessment/Plan (1) Rhabdomyolysis Assessment/Plan: -improving -will change fluids from boluses to 100ml/hr -recheck cpk in am Code(s): M62.82 - RHABDOMYOLYSIS Qualifiers: Rhabdomyolysis type: traumatic Encounter type: initial encounter Qualified Code(s): T79.6XXA - Traumatic ischemia of muscle, initial encounter (2) MIRACLE (acute kidney injury) Assessment/Plan: -resolved -plan to stop IVF tomorrow -monitor Code(s): N17.9 - ACUTE KIDNEY FAILURE, UNSPECIFIED (3) Fall Assessment/Plan: -PT following -planning for SNF placement Code(s): W19.XXXA - UNSPECIFIED FALL, INITIAL ENCOUNTER Qualifiers: Encounter type: initial encounter Qualified Code(s): W19.XXXA - Unspecified fall, initial encounter (4) Anemia Assessment/Plan: -stable Code(s): D64.9 - ANEMIA, UNSPECIFIED Qualifiers: Anemia type: other cause Other causes of anemia: acute posthemorrhagic Qualified Code(s): D62 - Acute posthemorrhagic anemia (5) BPH (benign prostatic hyperplasia) Assessment/Plan: -continue flomax Code(s): N40.0 - BENIGN PROSTATIC HYPERPLASIA WITHOUT LOWER URINRY TRACT SYMP (6) Hypertension Assessment/Plan: -continue valsartan -monitor when off of IVF -can increase valsartan if needed Code(s): I10 - ESSENTIAL (PRIMARY) HYPERTENSION (7) Hypothyroid Assessment/Plan: -continue synthroid Code(s): E03.9 - HYPOTHYROIDISM, UNSPECIFIED
[2017-08-28] MEDS: HEPARIN NA (PORCINE) 5,000 UNITS/ML 1ML VIAL SQ SCH ×2 (02:48→09:19)
[2017-08-28] MEDS: LEVOTHYROXINE NA 100 MCG TABLET (FP) PO SCH (06:18)
[2017-08-28 07:55] LABS: BASO % 0.3 % (0-2.0); EOS % 2.8 % (0-4.5); HEMATOCRIT 37.2 % (35.4-49); HEMOGLOBIN 12.3 GM/dL (11.7-16.9); LYMPH % 21.7 % (8-40); MCH 27.7 pg (25.7-33.7); MCHC 33.1 g/dl (32.0-35.9); MEAN CELL VOLUME 83.8 fl (80-96); MONO % 9.6 % (3.8-10.2); NEUT % 65.6 % (42.8-82.8); PLATELET COUNT 164 K/MM3 (134-434); RBC 4.44 M/mm3 (4.00-5.60); RDW 16.1 % (11.9-15.9); WHITE BLOOD COUNT 8.7 K/mm3 (4.0-10.0)
[2017-08-28 08:06] LABS: CHLORIDE 105 mmol/L (98-107); POTASSIUM 3.9 mmol/L (3.5-5.1); SODIUM 141 mmol/L (136-145)
[2017-08-28 08:35] LABS: ANION GAP 8 (8-16); BLOOD UREA NITROGEN 14 mg/dL (7-18); CALCIUM 8.6 mg/dL (8.5-10.1); CO2 28 mmol/L (21-32); CREATININE 0.9 mg/dL (0.7-1.3); GLUCOSE,RANDOM 88 mg/dL (74-106); MAGNESIUM 2.2 mg/dL (1.8-2.4); PHOSPHOROUS 3.3 mg/dL (2.5-4.9)
[2017-08-28] MEDS ORDERED: PT OWN MED DRAWER 7, Y5N ONE (09:14)
[2017-08-28] MEDS: VALSARTAN 80 MG TABLET (UD) PO SCH (09:19)
[2017-08-28] MEDS: MEMANTINE HCL 10 MG TABLET (FP) PO SCH (09:19)
[2017-08-28] MEDS: FERROUS SO4 325 MG TABLET (FP) PO SCH (09:19)
[2017-08-28] MEDS: ASCORBIC ACID 500 MG TABLET (FP) PO SCH (09:19)
[2017-08-28] MEDS: DOCUSATE SODIUM 100 MG CAPSULE (FP) PO SCH (09:19)
[2017-08-28] MEDS: POTASSIUM CHLORIDE ORAL LIQUID 20 MEQ/15 ML PO SCH (09:19)
[2017-08-28] MEDS: RANITIDINE HCL 150 MG/10 ML UNIT-DOSE PO SCH (09:19)
[2017-08-28] MEDS: TAMSULOSIN HCL 0.4 MG CAP.ER.24H (FP) PO SCH (09:19)
--- NOTE | 2017-08-28 12:12 | DS ---
Physical Examination Vital Signs: Vital Signs Temperature 36.6 C 08/28/17 08:58 Pulse Rate 83 08/28/17 08:58 Respiratory Rate 20 08/28/17 08:58 Blood Pressure 139/81 08/28/17 08:58 O2 Sat by Pulse Oximetry (%) 96 08/27/17 21:00 Constitutional: Yes: Well Nourished, No Distress, Calm Cardiovascular: Yes: Regular Rate and Rhythm. No: Gallop, Murmur, Rub Respiratory: Yes: Regular, CTA Bilaterally. No: Rales, Rhonchi, Wheezes Gastrointestinal: Yes: Normal Bowel Sounds, Soft. No: Distention, Tenderness Extremities: Yes: WNL Edema: No Labs: CBC, BMP 08/28/17 06:40 08/28/17 06:40 Discharge Summary Reason For Visit: RHABDOMYOLYSIS Current Active Problems MIRACLE (acute kidney injury) (Acute) Dehydration (Acute) Gait abnormality (Acute) Rhabdomyolysis (Acute) Hospital Course: (1) Rhabdomyolysis Code(s): M62.82 - RHABDOMYOLYSIS Qualifiers: Rhabdomyolysis type: traumatic Encounter type: initial encounter Qualified Code(s): T79.6XXA - Traumatic ischemia of muscle, initial encounter (2) MIRACLE (acute kidney injury) Code(s): N17.9 - ACUTE KIDNEY FAILURE, UNSPECIFIED (3) Fall Code(s): W19.XXXA - UNSPECIFIED FALL, INITIAL ENCOUNTER Qualifiers: Encounter type: initial encounter Qualified Code(s): W19.XXXA - Unspecified fall, initial encounter (4) Anemia Code(s): D64.9 - ANEMIA, UNSPECIFIED Qualifiers: Anemia type: other cause Other causes of anemia: acute posthemorrhagic Qualified Code(s): D62 - Acute posthemorrhagic anemia (5) BPH (benign prostatic hyperplasia) Code(s): N40.0 - BENIGN PROSTATIC HYPERPLASIA WITHOUT LOWER URINRY TRACT SYMP (6) Hypertension Code(s): I10 - ESSENTIAL (PRIMARY) HYPERTENSION (7) Hypothyroid Code(s): E03.9 - HYPOTHYROIDISM, UNSPECIFIED Mr Lan is a pleasant 87 year old gentleman with dementia who comes in with repeated falls and found to have rhabdomyolysis and MIRACLE. He was admitted to the hospital and started on IVF. He tolerated this well. His renal function normalized and his CPK decreased. Today it is 800. He can continue oral hydration as an outpatient. He is otherwise stable for discharge to SNF. 32 minutes spent in preparation of this discharge Condition: Stable - Instructions Diet, Activity, Other Instructions: regular diet. Up with assistance, further activity per PT at SNF. Referrals: Praveen Manzanares MD [Primary Care Provider] - [facility] - Home Medications Comprehensive Discharge Medication List: Ambulatory Orders Levothyroxine [Synthroid -] 100 mcg PO DAILY 12/02/16 Tamsulosin HCl [Flomax] 0.4 mg PO DAILY 12/02/16 Ranitidine Oral Solution [Zantac Oral Solution -] 150 mg PO DAILY ml 12/12/16 Ascorbate Calcium [Vitamin C] 500 mg PO DAILY 01/24/17 Ferrous Sulfate 325 mg PO DAILY 01/24/17 Memantine HCl [Namenda -] 10 mg PO DAILY 01/24/17 Tramadol HCl 50 mg PO DAILY 01/24/17 Acetaminophen [Tylenol .Regular Strength -] 650 mg PO Q4H PRN tablet 08/28/17 Docusate Sodium [Colace -] 100 mg PO BID capsule 08/28/17 Potassium Chloride [Potassium Chloride Oral Liquid] 20 meq PO BID cup 08/28/17 Valsartan [Diovan] 80 mg PO DAILY tablet 08/28/17
[2017-08-28 14:11] VITALS: BP 137/80; PULSE 74; TEMP 98.5
== END 2017-08-28 16:20 | DRG 565 ==
LOC: JER 11:46 → JERBED 14:53 → J6S 17:12
PROVIDERS: ADMIT Internal Medicine; ATTEND Internal Medicine
DX: T79.6XXA Traumatic ischemia of muscle, initial encounter (principal); M62.82 Rhabdomyolysis; N17.9 Acute kidney failure, unspecified; D62 Acute posthemorrhagic anemia; N40.0 Benign prostatic hyperplasia without lower urinary tract symptoms; I10 Essential (primary) hypertension; E03.9 Hypothyroidism, unspecified; F03.90 Unspecified dementia, unspecified severity, without behavioral disturbance, psychotic disturbance, mood disturbance, and anxiety; E78.00 Pure hypercholesterolemia, unspecified; I45.10 Unspecified right bundle-branch block; E86.0 Dehydration; R26.9 Unspecified abnormalities of gait and mobility; E87.6 Hypokalemia; W18.39XA Other fall on same level, initial encounter; Y92.098 Other place in other non-institutional residence as the place of occurrence of the external cause; Z87.11 Personal history of peptic ulcer disease; Z87.891 Personal history of nicotine dependence
CPT/HCPCS: 36415; 70450-TC; 71045-TC-FY; 80048; 80053; 81003; 82550; 82553; 82607; 82746; 83735; 84100; 84439; 84443; 84484; 85025; 93005; 93010; 97116-GP; 97161-GP; 99285-25; J1644; J7030